=== PATIENT | male | born 1965 | race Caucasian/White ===

== ENCOUNTER 2016-09-25 12:43 | Inpatient (IN) | payer OTHER ==
[~2016-09-25] VITALS: Ht 177.8 cm; Wt 80.5 kg
[~2016-09-25 12:43] MED LIST: LACTATED RINGER'S 1000 ML INJ 1,000 ML IV ONE; NEOSTIGMINE 3 MG/3 ML SYR IV ONE; ONDANSETRON HCL 4 MG/2 ML VIAL IV PUSH ONE; PHENYLEPH/NS 1000 MCG/10 ML SYR IV ONE; PROPOFOL 200 MG/20 ML AMP IV ONE
[2016-09-25 13:09] VITALS: BP 98/58; PULSE 96; RESP 16; TEMP 97.8; O2SAT 97
[2016-09-25 13:11] VITALS: BP 82/50
[2016-09-25 13:25] VITALS: BP 97/55; PULSE 87; RESP 18; O2SAT 100
[2016-09-25] MEDS ORDERED: PIPERACIL-TAZO 4.5 GM PREMIX 100 ML IV STA (13:37)
[2016-09-25] MEDS ORDERED: SODIUM CHLOR 0.9% 1000 ML INJ 400 ML IV ONE (13:37)
[2016-09-25] MEDS ORDERED: VANCOMYCIN INJ 1,000 MG in SODIUM CHLOR 0.9% 250 ML INJ 250 ML IV STA (13:37)
[2016-09-25] MEDS ORDERED: SODIUM CHLOR 0.9% 1000 ML INJ 1,000 ML IV ONE ×2 (13:37)
[2016-09-25] MEDS ORDERED: metroNIDAZOLE 500 MG INJ 100 ML IV STA (13:39)
[2016-09-25] MEDS ORDERED: AZTREONAM INJ 2,000 MG in SODIUM CHLORIDE 0.9% INJ 100 ML IV STA (13:39)
[2016-09-25 14:13] LABS: AUTOMATED NEUTROPHIL # 18.4 TH/MM3 (1.8-7.7); BASOPHIL % 0.2 % (0.0-2.0); EOSINOPHIL % 0.1 % (0.0-4.0); HEMATOCRIT 28.9 % (39.0-51.0); LYMPH % 10.5 % (9.0-44.0); LYMPHOCYTE # 2.4 TH/MM3 (1.0-4.8); MEAN CELL VOLUME 82.2 FL (80.0-100.0); MEAN CORPUSCULAR HEMOGLOBIN 26.8 PG (27.0-34.0); MEAN CORPUSCULAR HGB CONC 32.6 % (32.0-36.0); MONO % 9.6 % (0.0-8.0); NEUT % 79.6 % (16.0-70.0); PLATELET COUNT 308 TH/MM3 (150-450); RED BLOOD COUNT 3.51 MIL/MM3 (4.50-5.90); WHITE BLOOD COUNT 23.1 TH/MM3 (4.0-11.0)
--- NOTE | 2016-09-25 14:14 | PD.VS.CON ---
History of Present Illness Chief Complaint: R foot infection Consult Requested by: Dr. Wright History of Present Illness 51yo male w/ no known medical problems who has a R foot wound that he notes started a week ago. He has drainage and now chills. He has a L AKA that was done in March for what he notes is a brown recluse spider bite. Past/Family/Social History Past Medical History unknown. "Borderline diabetes" Past Surgical History L AKA in March Social History lives with in [place] Home Medications No Active Prescriptions or Reported Meds Coded Allergies: Penicillin (Verified Allergy, Unknown, 09/25/16) Review of Systems Respiratory: DENIES: Sputum production, Shortness of breath Cardiovascular: COMPLAINS OF: Lower Extremity Edema, DENIES: Palpitations, Orthopnea, Claudication Physical Exam Vitals/I&O Date Time Temp Pulse Resp B/P Pulse Ox O2 Delivery O2 Flow Rate FiO2 09/25/16 13:25 87 18 97/55 100 Room Air 09/25/16 13:23 87 16 99 Room Air 09/25/16 13:11 82/50 09/25/16 13:09 97.8 96 16 98/58 97 Neuro: alert, oriented, appropriately nervous HEENT: NC/AT anicteric sclera Neck: no JVD Heart: tachycardic, no M Lungs: clear B Abdomen: NT Vascular: no palpable pedal pulses Extremities: L AKA R foot with forefoot erythema and draining purulence. + odor. pending Assessment and Plan Plan R Foot infection with sepsis - hypotensive but alert. Responding to IVF. 1. Emergent R ankle disarticulation. I spoke with the patient about this and he seems to understand the troubles of bilateral amputation 2. Admit to MICU broad non-PCN antibiotics CV risk factor modification: ASA, statin, and when bp tolerates it, beta tank Check Hgb A1c Rajesh Rowley MD FACS [employer] missile system crewmember [facility] - Heart and Vascular Surgery at [facility] [phone] Rajesh Rowley MD Sep 25, 2016 14:14
[2016-09-25 14:17] LABS: HEMO FLAGS AUTO DIFF
--- NOTE | 2016-09-25 14:21 | RADRPT ---
EXAM DATE/TIME: 09/25/2016 13:52 [facility] COMPARISON: No previous studies available for comparison. INDICATIONS : Right foot pain after jamming toes two weeks ago. MEDICAL HISTORY : Diabetes mellitus type II. SURGICAL HISTORY : None. ENCOUNTER: Initial ACUITY: 2 weeks PAIN SCORE: 10/10 LOCATION: Right 1st and 2nd digit. FINDINGS: AP, lateral and oblique views of the right foot were obtained and demonstrate diffuse osteopenia and normal alignment. There is mild deformity of the third proximal phalanx with apparent callus formatio n. There is soft tissue swelling and areas of gas noted in the soft tissues along the first through f ourth phalanges and proximal metatarsals. Vascular calcifications are present. There are mild degener ative changes and osteopenia. CONCLUSION: 1. Possible healing fracture of the third proximal phalanx. 2. Soft tissue swelling and multiple gas bubbles in the soft tissues which could indicate infection. No definite destructive changes identified. Harsh Aguirre MD on September 25, 2016 at 14:16 Board Certified Radiologist. This report was verified electronically.
[2016-09-25] MEDS ORDERED: fentaNYL CITRATE 250 MCG/5 ML AMP ONE ×2 (14:22→14:43)
[2016-09-25 14:31] LABS: BICARBONATE 23.1 MEQ/L (21.0-32.0); POTASSIUM 4.1 MEQ/L (3.5-5.1)
[2016-09-25] MEDS ORDERED: BUPIVACAINE/EPINEPHRINE 0.5% 50 ML VIAL ONE (14:35)
[2016-09-25] MEDS ORDERED: LIDOCAINE HCL 1% 50 ML VIAL ONE (14:36)
[2016-09-25] MEDS ORDERED: THROMBIN (TOPICAL) 5,000 UNIT VIAL ONE (14:36)
[2016-09-25] MEDS ORDERED: GELFOAM SIZE 100 ONE (14:36)
[2016-09-25] MEDS ORDERED: HEPARIN SODIUM - SQ 10,000 UNITS/ML VIAL ONE (14:38)
--- NOTE | 2016-09-25 14:45 | PD ---
HPI Chief Complaint: Syncope/Near-Syncope Time Seen by Provider: 13:22 Travel History International Travel<30 days: No Contact w/Intl Traveler<30days: No Traveled to known affect area: No History of Present Illness HPI Patient is a 51-year-old male who presents the emergency department with right foot infection and hypotension. Patient is a poor historian. States that he has "borderline diabetes" and a history of a left AKA in March 2016. Over the last week he has had necrosis with blackened toes in the right foot, malodorous foot with discharge. He denies any fevers but has had some chills. Notes he is lightheaded and presyncopal upon standing. He denies any associated pain. Patient is unable to tell me why he had his left AKA. [facility] Past Medical History Diabetes: Yes Patient Takes Glucophage: No Past Surgical History Other Surgery: Yes (left AKA) Social History Alcohol Use: Yes Tobacco Use: No Substance Use: No Allergies-Medications (Allergen,Severity, Reaction): Coded Allergies: Penicillin (Verified Allergy, Unknown, 09/25/16) Reported Meds & Prescriptions Reported Meds & Active Scripts Active No Active Prescriptions or Reported Medications Review of Systems ROS Limitations: Clinical Condition, Poor Historian Physical Exam Exam Limitations: Clinical Condition, Poor Historian Narrative GENERAL: Adult male appearing older than stated age, ill-appearing SKIN: Focused skin assessment warm/dry. HEAD: Normocephalic. EYES: No scleral icterus. No injection or drainage. ENT: Mucous membranes dry NECK: Supple CARDIOVASCULAR: Regular rate and rhythm. No murmur appreciated. RESPIRATORY: No accessory muscle use. Clear to auscultation. Breath sounds equal bilaterally. GASTROINTESTINAL: Abdomen soft, non-tender, nondistended. MUSCULOSKELETAL: Left AKA. Right lower extremity with evidence of gangrene the first through third toes are necrotic, with malodorous discharge. There is erythema that extends to the mid foot. Distal pulses are dopplerable but not palpable. NEUROLOGICAL: Awake and alert. Normal speech. PSYCHIATRIC: insight and judgment poor Data Data Last Documented VS Vital Signs Date Time Temp Pulse Resp B/P Pulse Ox O2 Delivery O2 Flow Rate FiO2 09/25/16 13:25 87 18 97/55 100 Room Air 09/25/16 13:09 97.8 Orders Electrocardiogram (09/25/16 13:37) Complete Blood Count With Diff (4/24/17 13:37) Lactic Acid Sepsis Protocol (09/25/16 13:37) Urinalysis - C+S If Indicated (09/25/16 13:37) Blood Culture (09/25/16 13:37) Chest, Single Ap (09/25/16 13:37) Blood Glucose (09/25/16 13:37) Ecg Monitoring (09/25/16 13:37) Iv Access Insert/Monitor (09/25/16 13:37) Oximetry (09/25/16 13:37) Oxygen Administration (09/25/16 13:37) Vancomycin Inj (Vancomycin Inj) (09/25/16 13:37) Piperacil-Tazo 4.5 Gm Premix (Zosyn 4.5 (09/25/16 13:37) Sodium Chlor 0.9% 1000 Ml Inj (Ns 1000 M (09/25/16 13:37) Sodium Chlor 0.9% 1000 Ml Inj (Ns 1000 M (09/25/16 13:37) Sodium Chlor 0.9% 1000 Ml Inj (Ns 1000 M (09/25/16 13:37) Basic Metabolic Panel (Bmp) (09/25/16 13:37) Foot, Complete ([id number]) (09/25/16 ) Aztreonam Inj (Azactam Inj) (09/25/16 13:39) Metronidazole 500 Mg Inj (Flagyl 500 Mg (09/25/16 13:39) Consult Vascular Surgery (09/25/16 ) Fentanyl Inj (Fentanyl Inj) (09/25/16 14:22) (Hub Use Only)Inp Phy Cons/Ref (09/25/16 ) Bupivacaine-Epineph 0.5% Inj (Sensorcain (09/25/16 14:35) Thrombin Top Soln (Thrombin Top Soln) (09/25/16 14:36) Gelfoam 100 Top (Gelfoam 100 Top) (09/25/16 14:36) Lidocaine 1% Inj (50 Ml) (Xylocaine 1% I (09/25/16 14:36) Heparin Inj (Heparin Inj) (09/25/16 14:38) Labs Laboratory Tests Test 09/25/16 13:40 White Blood Count 23.1 TH/MM3 Red Blood Count 3.51 MIL/MM3 Hemoglobin 9.4 GM/DL Hematocrit 28.9 % Mean Corpuscular Volume 82.2 FL Mean Corpuscular Hemoglobin 26.8 PG Mean Corpuscular Hemoglobin 32.6 % Concent Red Cell Distribution Width 14.0 % Platelet Count 308 TH/MM3 Mean Platelet Volume 7.9 FL Neutrophils (%) (Auto) 79.6 % Lymphocytes (%) (Auto) 10.5 % Monocytes (%) (Auto) 9.6 % Eosinophils (%) (Auto) 0.1 % Basophils (%) (Auto) 0.2 % Neutrophils # (Auto) 18.4 TH/MM3 Lymphocytes # (Auto) 2.4 TH/MM3 Monocytes # (Auto) 2.2 TH/MM3 Eosinophils # (Auto) 0.0 TH/MM3 Basophils # (Auto) 0.0 TH/MM3 CBC Comment AUTO DIFF Sodium Level 121 MEQ/L Potassium Level 4.1 MEQ/L Chloride Level 86 MEQ/L Carbon Dioxide Level 23.1 MEQ/L Anion Gap 12 MEQ/L Blood Urea Nitrogen 11 MG/DL Creatinine 1.15 MG/DL Estimat Glomerular Filtration 67 ML/MIN Rate Random Glucose 143 MG/DL Lactic Acid Level 2.9 mmol/L Calcium Level 8.9 MG/DL MDM Medical Decision Making Medical Screen Exam Complete: Yes Emergency Medical Condition: Yes Medical Record Reviewed: Yes Differential Diagnosis 51-year-old male with history of diabetes and left AKA here with wound and a foot infection to the right limb and hypotension. On exam patient has clear evidence of gangrene with hypotension concerning for significant dehydration, sepsis, bacteremia. There is no overt evidence of necrotizing fasciitis on exam. Narrative Course Patient placed on monitor, IV established and blood obtained. Patient given 30 mg/kg normal saline bolus in color with vancomycin, Azactam, Flagyl for history of penicillin allergy Wound culture sent. X-ray of the right foot was obtained showing subcutaneous emphysema concerning for infection. No bony distractive lesions. Chest x-ray unremarkable. Given patient's hypotension, clear for infection concern for bacteremia and need source control. Vascular surgery was consulted and Dr. Rowley responded to the emergency department quite rapidly. Agrees with the aforementioned antibiotics, fluids, and stat OR for at least partial amputation of the right lower extremity. CBC, BMP, lactate, urinalysis , blood cultures were obtained and notable for WBC 23.1, sodium 121, lactate 2.9. Urine samples, EKG remains pending at the time this dictation. Patient expedited to OR for emergent amputation. Critical Care Narrative Aggregate critical care time was 50 minutes. Time to perform other separately billable procedures was not included in the critical care time. My time did not include minutes spent treating any other patients simultaneously or on activities that did not directly contribute to the patient's treatment. The services I provided to this patient were to treat and/or prevent clinically significant deterioration that could result in: Sepsis, cardiopulmonary decompensation, , disability, loss of limb I provided critical care services requiring my management, as noted below: Chart data review, documentation time, medication orders and management, vital sign assessments/reviewing monitor data, ordering and reviewing lab tests, ordering and interpreting/reviewing x-rays and diagnostic studies, care of the patient and discussion of the patient with the admitting physicians. Sepsis Criteria Severe Sepsis (+one): Lactate >2 Diagnosis Primary Impression: Septic shock Additional Impressions: Gangrene Diabetes Hypotension Qualified Code: I95.9 - Hypotension, unspecified hypotension type Admitting Information Admitting Physician Requests: Admit Scripts No Active Prescriptions or Reported Meds Connie Wright MD Sep 25, 2016 14:45
[2016-09-25 14:48] LABS: SCAN/DIFF AUTO DIFF CONFIRMED
[2016-09-25] MEDS ORDERED: MIDAZOLAM HCL 2 MG/2 ML VIAL ONE (15:01)
[2016-09-25] MEDS ORDERED: FAMOTIDINE 20 MG/2 ML VIAL ONE (15:01)
--- NOTE | 2016-09-25 15:01 | RADRPT ---
EXAM DATE/TIME: 09/25/2016 13:49 [facility] COMPARISON: No previous studies available for comparison. INDICATIONS : Fever. MEDICAL HISTORY : Diabetes mellitus type II. SURGICAL HISTORY : None. ENCOUNTER: Initial ACUITY: 3 days PAIN SCORE: 0/10 LOCATION: Bilateral chest FINDINGS: A single view of the chest demonstrates the lungs to be symmetrically aerated without evidence of mas s, infiltrate or effusion. The cardiomediastinal contours are unremarkable. Osseous structures are intact with some degenerative spurring of the dorsal spine. CONCLUSION: No acute cardiopulmonary process. Lungs are clear. Chencho Mckeon MD on September 25, 2016 at 14:59 Board Certified Radiologist. This report was verified electronically.
[2016-09-25] MEDS: SODIUM CHLOR 0.9% 1000 ML INJ 1,000 ML IV SCH (15:51)
--- NOTE | 2016-09-25 15:51 | HHI.PR ---
cc: Connie Wright MD Immediate Post Op Note Procedure Date: Sep 25, 2016 Pre Op Diagnosis: septic R foot Post Op Diagnosis: septic R foot Surgeon: Rajesh Rowley Benefits Consulting Analyst(s): none Procedure: R ankle disarticulation Findings: purulence up to proximal foot, none along tendon sheaths in calf tissue viable Complications: none apparent Specimen(s) removed: 1. R foot 2. Purulence from R foot for culture Estimated blood loss: 20 mL Anesthesia: General Drains: None Fluids: 400 IVF Patient to: PACU Patient Condition: Fair Date/Time of Procedure: SEE SURGICAL CARE RECORD Rajesh Rowley MD Sep 25, 2016 15:51
[2016-09-25] MEDS ORDERED: DO NOT ADM ANY ANTICOAGULANT DRUGS PRN (15:55)
[2016-09-25] MEDS ORDERED: GLUCAGON 1 MG/ML VIAL OTHER PRN ×2 (16:00→19:45)
[2016-09-25] MEDS ORDERED: DEXTROSE 50% IN WATER 50 ML VIAL(D50) IV PUSH PRN ×2 (16:00→19:45)
[2016-09-25 16:04] LABS: LACTIC ACID GHOST NOT REPORTABLE
[2016-09-25] MEDS ORDERED: *morphine SULFATE 8 MG/ML PERIprocedure ONLY ONE ×2 (16:23→19:10)
[2016-09-25] MEDS ORDERED: *LABETALOL HCL 100 MG/20 ML VIAL PERIprocedural Use ONLY ONE (18:49)
--- NOTE | 2016-09-25 19:04 | PD.CONS ---
[facility] Service Critical Care Medicine Consult Requested By Dr. Rowley Reason for Consult critical care management due to severe sepsis/ R ankle disarticulation Primary Care Physician History of Present Illness 51-year-old male with past medical history of "borderline diabetes", obesity, alcohol abuse, remote tobacco abuse who presented to [facility] emergency department on 09/25/16 with severe sepsis and right foot gangrene. He has undergone right ankle disarticulation by Dr. Rowley. Critical care medicine is consulted to assist with management postoperatively. Anesthesia records reviewed. Routine airway. He received 600 crystalloid, estimated blood loss 20 mL, urine output was 150. He tells me that he had "stubbed his toe" about 2 weeks ago and it would not heal and started draining. He was hypotensive in the ED with BP 82/50 MAP 60; lactic acid 2.9. Responded to 3 L NS bolus. Currently normotensive and appears well perfused. He states he had AKA in March [address] Kyle Edge in [place] due to a "brown recluse spider bite". States he drinks 10-12 beers per day, but states last drink was 6 days ago. Review of Systems ROS thirst Past Family Social History Allergies: Coded Allergies: Penicillin (Verified Allergy, Unknown, 09/25/16) Past Medical History Borderline diabetes Obesity Tobacco abuse Alcohol abuse Penicillin allergy (hives and respiratory difficulty) Past Surgical History Left AKA March 2016, [facility] (Dr. Kyle Edge) Reported Medications No home medications Active Ordered Medications Current Medications Medications (Trade) Dose Ordered Sig/Kaushal Route Start Time Stop Time Status Last Admin (NS 1000 ml Inj) 1,000 ml @ 83 mls/hr Q12H3M IV 09/25/16 15:51 09/25/16 15:51 (Aspirin) 325 mg DAILY PO 09/26/16 09:00 (Protonix) 40 mg DAILY PO 09/26/16 09:00 (Lopressor) 12.5 mg BID PO 09/25/16 21:00 (Lipitor) 40 mg HS PO 09/25/16 21:00 (Roxicodone) 5 mg Q4H PRN PO 09/25/16 19:00 (Dilaudid) 2 mg Q4H PRN PO 09/25/16 19:00 (Colace) 100 mg BID PO 09/25/16 21:00 Enoxaparin Sodium 30 mg 30 mg Q24H SQ 09/26/16 15:00 Vancomycin HCl 1200 mg/Sodium Chloride 262 ml @ 250 mls/hr Q12H IV 09/26/16 14:00 10/09/16 13:59 Ciprofloxacin/ Dextrose 200 ml @ 200 mls/hr Q12H IV 09/25/16 20:00 10/09/16 19:59 (Flagyl 500 Mg Inj) 100 ml @ 100 mls/hr Q8H IV 09/25/16 23:00 10/09/16 22:59 (D50w (Vial) Inj) 25 ml UNSCH PRN IV PUSH 09/25/16 16:00 (Glucagon Inj) 1 mg UNSCH PRN OTHER 09/25/16 16:00 Family History Father had diabetes He states his mother "from complications of smoking" Social History He states he smoked 2 packs of cigarettes per day for 10 years. Quit 16 years ago Drinks 10-12 beers per day. States his last drink was 6 days ago. Denies use of illicit drugs Is . He states his is on dialysis He moved here from [place], [place]. 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 his [place] license after his AKA in March 2016 Physical Exam Vital Signs Vital Signs Date Time Temp Pulse Resp B/P Pulse Ox O2 Delivery O2 Flow Rate FiO2 09/25/16 18:00 80 14 147/87 92 Room Air 09/25/16 17:45 80 14 125/85 98 Room Air 09/25/16 17:30 80 14 147/85 92 Room Air 09/25/16 17:15 80 14 119/78 97 Room Air 09/25/16 17:00 79 14 147/81 97 Room Air 09/25/16 16:45 81 14 128/79 98 Room Air 09/25/16 16:30 87 14 121/75 90 Room Air 09/25/16 16:15 85 14 130/77 94 Room Air 09/25/16 16:00 88 14 134/75 94 Room Air 09/25/16 15:53 99.5 89 22 149/86 Nasal Cannula 2 09/25/16 13:25 87 18 97/55 100 Room Air 09/25/16 13:23 87 16 99 Room Air 09/25/16 13:11 82/50 09/25/16 13:09 97.8 96 16 98/58 97 Physical Exam Temp 99.5 pulse 93 sinus rhythm blood pressure 165/88 with mean arterial pressure 117 sats 98% on room air Drips: 0.9 NaCl at 83 mL per hour GENERAL: Well-nourished, well-developed patient who is sitting up in PACU bed, alert and conversant. SKIN: Warm and dry, well perfused. HEAD: Atraumatic. Normocephalic. EYES: Pupils equal and round, 4 mm and reactive bilaterally.. No scleral icterus. No injection or drainage. ENT: No nasal bleeding or discharge. Mucous membranes pink and moist. NECK: Trachea midline. Jugular veins are flat. CARDIOVASCULAR: Regular rate and rhythm, sinus rhythm on monitor.. No murmurs rubs or gallops. RESPIRATORY: No accessory muscle use. Clear to auscultation. Breath sounds equal bilaterally. On room air. GASTROINTESTINAL: Abdomen soft, non-tender, nondistended. Bowel sounds present.. MUSCULOSKELETAL: Left upper extremity status post AKA with incision healed. No edema. Right lower extremity status post right ankle disarticulation; has Victoriano wrap overlying the ankle. Palpable popliteal pulses. Normal cap refill and palpable radial pulses bilaterally. NEUROLOGICAL: Awake and alert. No obvious cranial nerve deficits. Motor grossly within normal limits. Normal speech. Oriented 4. Laboratory Laboratory Tests Test 09/25/16 13:40 White Blood Count 23.1 Red Blood Count 3.51 Hemoglobin 9.4 Hematocrit 28.9 Mean Corpuscular Volume 82.2 Mean Corpuscular Hemoglobin 26.8 Mean Corpuscular Hemoglobin 32.6 Concent Red Cell Distribution Width 14.0 Platelet Count 308 Mean Platelet Volume 7.9 Neutrophils (%) (Auto) 79.6 Lymphocytes (%) (Auto) 10.5 Monocytes (%) (Auto) 9.6 Eosinophils (%) (Auto) 0.1 Basophils (%) (Auto) 0.2 Neutrophils # (Auto) 18.4 Lymphocytes # (Auto) 2.4 Monocytes # (Auto) 2.2 Eosinophils # (Auto) 0.0 Basophils # (Auto) 0.0 CBC Comment AUTO DIFF Differential Comment AUTO DIFF CONFIRMED Sodium Level 121 Potassium Level 4.1 Chloride Level 86 Carbon Dioxide Level 23.1 Anion Gap 12 Blood Urea Nitrogen 11 Creatinine 1.15 Estimat Glomerular Filtration 67 Rate Random Glucose 143 Lactic Acid Level 2.9 Calcium Level 8.9 Date/Time Procedure Status Source Growth 09/25/16 15:29 Gram Stain Received Tissue Foot Pending 09/25/16 15:29 Wound Culture Received Tissue Foot Pending 09/25/16 15:29 Fungal Smear Received Wound Foot Pending 09/25/16 15:29 Fungal Culture Received Wound Foot Pending 09/25/16 15:29 Acid Fast Stain Received Tissue Foot Pending 09/25/16 15:29 Mycobacterial Culture Received Tissue Foot Pending 09/25/16 13:45 Aerobic Blood Culture Received Blood Peripheral Pending 09/25/16 13:45 Anaerobic Blood Culture Received Blood Peripheral Pending Result Diagram: 09/25/16 1340 09/25/16 1340 Septic Shock Reassessment Heart: Regular rate and rhythm Lungs: Clear Skin: Warm Peripheral Pulses: Bounding Right Radial Bounding Left Radial Bounding Right Popliteal Capillary Refill: <2 seconds Assessment and Plan Assessment and Plan NEURO: Postoperative pain Alcohol abuse Oxycodone as needed for pain. Dilaudid as needed for breakthrough pain Thiamine, multivitamin, folic acid supplementation. Monitor for signs and symptoms of alcohol withdrawal. RESP: Remote history of tobacco abuse On room air. Incentive spirometry every hour awake. CV: Hypertension Peripheral vascular disease h/o of L AKA 03/2016 Metoprolol 12.5 mill grams by mouth twice a day Check baseline lipids and baseline lfts. Lipitor 40 mill grams by mouth daily. Aspirin 325 mill grams by mouth daily Baseline EKG reviewed by me, normal sinus rhythm rate 99 with normal intervals. GI: Obesity Heart healthy diet Colace 100 mg by mouth twice a day for bowel regimen. FEN/RENAL: Hyponatremia, suspect chronic secondary to alcohol abuse Check cortisol, TSH, urine osm, serum osm, urine sodium. Received 3 L NS bolus in ED, 600 crystalloid in OR. Currently has thirst and taking po. MIVF 0.9 NaCl @ 84 ml/hr, increase 125 /hr overnight Monitor intake and output. Monitor electrolytes. Replace electrolytes as indicated per ICU electrolyte replacement protocol. Avoid nephrotoxins. ID: Leukocytosis Severe sepsis Lactic acidemia Right foot gangrene s/p R ankle disarticulation 09/25/16 (Dr. Rowley) Penicillin allergy, (respiratory difficulty and hives) Flagyl 500 mg IV every 8 hours Cipro 400 mg IV every 12 hours Vancomycin 1200 mg IV every 12 hours. Pharmacy consult for dosing Follow-up blood and wound/tissue cultures from 09/25/16.. HEME: Chronic anemia Monitor CBC check b12 and iron studies. ENDO: Acute hyperglycemia ?Prediabetes Check Hgb A1c Low-dose insulin sliding scale at bedside glucose ac/hs PROPH: Lovenox 30 mg subcutaneous every 24 hours. Protonix 40 mg po daily for stress ulcer prophylaxis. ACCESS: Peripheral IV providing adequate access at this time. Level 3 Consult Leslie Morales MD Sep 25, 2016 19:04
[2016-09-25] MEDS: CIPROFLOXACIN 400 MG PREMIX 200 ML IV SCH (20:00)
[2016-09-25] MEDS ORDERED: FAMOTIDINE 20 MG TAB PO SCH (21:00)
[2016-09-25] MEDS: INSULIN ASPART SUPPLEMENTAL SCALE SQ SCH (21:00)
[2016-09-25] MEDS: DOCUSATE SODIUM 100 MG CAP PO SCH (21:38)
[2016-09-25] MEDS: ATORVASTATIN 40 MG TAB PO SCH (21:38)
[2016-09-25] MEDS: METOPROLOL TARTRATE 25 MG TAB PO SCH (21:39)
[2016-09-25] MEDS: FOLIC ACID 1 MG TAB PO SCH (21:42)
[2016-09-25] MEDS: THIAMINE HCL 100 MG TAB PO SCH (21:42)
[2016-09-25] MEDS: MULTIVITAMIN TAB PO SCH (21:42)
[2016-09-25] MEDS: metroNIDAZOLE 500 MG INJ 100 ML IV SCH (21:44)
[2016-09-25 22:27] VITALS: BP_SYST 131; BP_SYST 99; BP_DIAS 55; BP_DIAS 73; PULSE 84; PULSE 88; RESP 18; TEMP 97.4; O2SAT 93; O2SAT 98
[2016-09-25 23:30] LABS: INTERNATIONAL NORMALIZED RATIO 1.3 RATIO; PROTHROMBIN TIME - PATIENT 14.7 SEC (9.8-11.6)
[2016-09-25 23:36] LABS: ANION GAP 10 MEQ/L (5-15); AST (GOT) 24 U/L (15-37); BICARBONATE 22.4 MEQ/L (21.0-32.0); BLOOD UREA NITROGEN 7 MG/DL (7-18); CHLORIDE 95 MEQ/L (98-107); GLOMERULAR FILTRATION RATE 111 ML/MIN (>89); MAGNESIUM 1.4 MG/DL (1.5-2.5); POTASSIUM 3.4 MEQ/L (3.5-5.1); SODIUM (NA) 127 MEQ/L (136-145)
[2016-09-25 23:56] LABS: CORTISOL 12.1 MCG/DL
[2016-09-26] VITALS (8 sets, daily range): BP systolic 109–187; BP diastolic 62–104; PULSE 68–100; RESP 17–18; TEMP 96–98.3; O2SAT 97–100
[2016-09-26 00:05] LABS: ALKALINE PHOSPHATASE 79 U/L (45-117); ALT (GPT) 40 U/L (12-78); CALCIUM-PROTEIN CORRECTED 7.7 MG/DL (8.5-10.1); HDL CHOLESTEROL 19.3 MG/DL (40.0-60.0); INDIRECT BILIRUBIN 0.2 MG/DL (0.0-0.8); LDL CHOLESTEROL 37 MG/DL (0-99); TOTAL BILIRUBIN ADULT 0.3 MG/DL (0.2-1.0); TRANSFERRIN IRON PROFILE 110 MG/DL (200-360)
[2016-09-26] MEDS: VANCOMYCIN INJ 1,200 MG in SODIUM CHLOR 0.9% 250 ML INJ 250 ML IV SCH ×2 (02:33→15:19)
[2016-09-26] MEDS: HYDROmorphone HCL 2 MG TAB PO PRN (02:34)
[2016-09-26] MEDS: SODIUM CHLOR 0.9% 1000 ML INJ 1,000 ML IV SCH ×3 (02:35→18:30)
[2016-09-26 05:22] LABS: HEMATOCRIT 23.8 % (39.0-51.0); MEAN CELL VOLUME 82.4 FL (80.0-100.0); MEAN CORPUSCULAR HEMOGLOBIN 28.8 PG (27.0-34.0); PLATELET COUNT 222 TH/MM3 (150-450); RED BLOOD COUNT 2.89 MIL/MM3 (4.50-5.90); RED CELL DISTRIBUTION WIDTH 14.1 % (11.6-17.2); REVIEW FLAG FINAL; WHITE BLOOD COUNT 9.4 TH/MM3 (4.0-11.0)
[2016-09-26 05:34] LABS: BICARBONATE 23.2 MEQ/L (21.0-32.0); POTASSIUM 3.4 MEQ/L (3.5-5.1)
[2016-09-26 05:48] LABS: CALCIUM-PROTEIN CORRECTED 7.6 MG/DL (8.5-10.1)
[2016-09-26] MEDS: metroNIDAZOLE 500 MG INJ 100 ML IV SCH ×3 (06:08→23:00)
[2016-09-26] MEDS: INSULIN ASPART SUPPLEMENTAL SCALE SQ SCH ×4 (06:30→21:00)
[2016-09-26] MEDS: CIPROFLOXACIN 400 MG PREMIX 200 ML IV SCH ×2 (08:45→20:00)
[2016-09-26] MEDS: ASPIRIN 325 MG TAB PO SCH (08:46)
[2016-09-26] MEDS: DOCUSATE SODIUM 100 MG CAP PO SCH ×2 (08:46→20:29)
[2016-09-26] MEDS: FOLIC ACID 1 MG TAB PO SCH (08:47)
[2016-09-26] MEDS: THIAMINE HCL 100 MG TAB PO SCH (08:47)
[2016-09-26] MEDS: METOPROLOL TARTRATE 25 MG TAB PO SCH ×2 (08:47→20:29)
[2016-09-26] MEDS: MULTIVITAMIN TAB PO SCH (08:47)
[2016-09-26] MEDS: PANTOPRAZOLE SOD 40 MG DELAYED RELEASE TAB PO SCH (08:48)
--- NOTE | 2016-09-26 09:00 | EKG ---
Date Performed: 09/25/2016 Time Performed: 15:02:35 PTAGE: 51 years EKG: Sinus rhythm NORMAL ECG NO PREVIOUS TRACING DOCTOR: Pernell Dow Interpretating Date/Time 09/26/2016 08:58:12
[2016-09-26 10:20] LABS: HEMOGLOBIN A1a 0.9 %; HEMOGLOBIN A1b 0.8 %; HEMOGLOBIN Ao 86.2 %; HEMOGLOBIN F 0.8 %; HEMOGLOBIN LA1C 1.9 %; HEMOGLOBIN P3 3.7 %
--- NOTE | 2016-09-26 10:58 | HHI.PR ---
Subjective Remarks Stated is doing well no fever or chills no chest pain or short of breath Objective Vitals Vital Signs Date Time Temp Pulse Resp B/P Pulse Ox O2 Delivery O2 Flow Rate FiO2 09/26/16 09:38 97 21 09/26/16 08:00 96.2 80 18 169/91 99 09/26/16 07:08 18 09/26/16 04:40 96.0 82 18 160/88 98 09/26/16 00:11 97.8 68 17 126/71 98 09/25/16 22:27 97.4 88 18 131/73 93 09/25/16 21:14 99.0 92 14 143/82 96 Room Air 09/25/16 21:00 92 14 143/82 96 Room Air 09/25/16 20:00 94 14 135/81 96 Room Air 09/25/16 19:00 92 14 150/85 96 Room Air 09/25/16 18:00 80 14 147/87 92 Room Air 09/25/16 17:45 80 14 125/85 98 Room Air 09/25/16 17:30 80 14 147/85 92 Room Air 09/25/16 17:15 80 14 119/78 97 Room Air 09/25/16 17:00 79 14 147/81 97 Room Air 09/25/16 16:45 81 14 128/79 98 Room Air 09/25/16 16:30 87 14 121/75 90 Room Air 09/25/16 16:15 85 14 130/77 94 Room Air 09/25/16 16:00 88 14 134/75 94 Room Air 09/25/16 15:53 99.5 89 22 149/86 Nasal Cannula 2 09/25/16 13:25 87 18 97/55 100 Room Air 09/25/16 13:23 87 16 99 Room Air 09/25/16 13:11 82/50 09/25/16 13:09 97.8 96 16 98/58 97 I/O 09/25/16 09/25/16 09/25/16 09/26/16 09/26/16 09/26/16 07:00 15:00 23:00 07:00 15:00 23:00 Intake Total 1897 ml 1218 ml Output Total 1020 ml 1000 ml Balance 877 ml 218 ml Intake Oral 360 ml 480 ml IV Total 937 ml 738 ml Other 600 ml Output Urine Total 1000 ml 1000 ml Estimated Blood Loss 20 ml Result Diagram: 09/26/1643909/26/16439 Objective Remarks GENERAL: This is a well-nourished, well-developed patient, in no apparent distress. SKIN: No rashes, warm and dry HEAD: Atraumatic. Normocephalic. EYES: Pupils equal round and reactive. Extraocular motions intact. No scleral icterus. ENT: Nose without bleeding, or drainage, Airway patent. NECK: Trachea midline. Supple CARDIOVASCULAR: Regular rate and rhythm without murmurs, gallops, or rubs. RESPIRATORY: Fair air entry bilaterally. No wheezes, rales, or rhonchi. GASTROINTESTINAL: Abdomen soft, non-tender, nondistended. Positive bowel sounds MUSCULOSKELETAL: Left AKA stump looks good, right BKA in gauze NEUROLOGICAL: Awake and alert. Moves all extremity. Normal speech.no focal neurological deficit A/P Assessment and Plan 51 years old male admitted with severe sepsis PAD and left foot gangrene status post surgical debridement -Severe sepsis with lactic acidemia and leukocytosis: Improved on iv antibiotics status post surgery, leukocytosis improved to normal level as well as lactic acid -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 for 21/09/16: Continue the antibiotic Cipro Flagyl and Vanco, continue following blood and bone/tissue culture, surgery following -PAD status post left AKA 03/2016: Continue aspirin and Lopressor -Chronic anemia : Low iron, saturation, TIBC, ferritin pending -Hyponatremia with hypomagnesemia: Monitor and replace as needed, hyponatremia mostly due to alcohol abuse -Hyperglycemia rule out new diagnosis diabetes mellitus: Accu-Chek and ISS, A1c pending, FBG 136 today -Hypertension: Resume home meds, on metoprolol -Alcohol abuse: Counseled, folic acid thiamine, Ativan as needed -Penicillin allergy -DVT prophylaxis, on Lovenox Carmen Park MD Sep 26, 2016 10:58
[2016-09-26] MEDS: MAGNESIUM SULFAT 1 GM PREMIX 100 ML x2 bags IV SCH ×2 (12:40→13:46)
--- NOTE | 2016-09-26 13:38 | PD.VS.PN ---
Subjective POD #: 1 Procedure(s): R ankle disarticulation Subjective/Hospital Course Pt sitting in bed comfortably in NAD, at the BS Pt without complaints Pain controlled Changed dressing Objective Vitals/I&O Date Time Temp Pulse Resp B/P Pulse Ox O2 Delivery O2 Flow Rate FiO2 09/26/16 12:00 96.2 80 18 187/104 100 09/26/16 11:11 18 09/26/16 09:38 97 21 09/26/16 08:00 96.2 80 18 169/91 99 09/26/16 04:40 96.0 82 18 160/88 98 09/26/16 00:11 97.8 68 17 126/71 98 09/25/16 22:27 97.4 88 18 131/73 93 09/25/16 21:14 99.0 92 14 143/82 96 Room Air 09/25/16 21:00 92 14 143/82 96 Room Air 09/25/16 20:00 94 14 135/81 96 Room Air 09/25/16 19:00 92 14 150/85 96 Room Air 09/25/16 18:00 80 14 147/87 92 Room Air 09/25/16 17:45 80 14 125/85 98 Room Air 09/25/16 17:30 80 14 147/85 92 Room Air 09/25/16 17:15 80 14 119/78 97 Room Air 09/25/16 17:00 79 14 147/81 97 Room Air 09/25/16 16:45 81 14 128/79 98 Room Air 09/25/16 16:30 87 14 121/75 90 Room Air 09/25/16 16:15 85 14 130/77 94 Room Air 09/25/16 16:00 88 14 134/75 94 Room Air 09/25/16 15:53 99.5 89 22 149/86 Nasal Cannula 2 09/25/16 13:25 87 18 97/55 100 Room Air 09/25/16 13:23 87 16 99 Room Air 09/25/16 13:11 82/50 09/25/16 13:09 97.8 96 16 98/58 97 Exam: GENERAL: A&OX3/NAD/GCS15 SKIN: Warm and dry. R ankle disarticulation site clean with minimal sanguineous drainage/ No S/R/O noted NECK: Supple/No JVD CARDIOVASCULAR: +S1,S2 with a RRR w/o M/G/R RESPIRATORY: BS equal and CTA/ No accessory muscle use. GASTROINTESTINAL: Abdomen soft, non-tender, nondistended. MUSCULOSKELETAL: No cyanosis, or edema. Laboratory Laboratory Tests Test 09/25/16 09/25/16 09/26/16 13:40 23:02 04:40 White Blood Count 23.1 9.4 Red Blood Count 3.51 2.89 Hemoglobin 9.4 8.3 Hematocrit 28.9 23.8 Mean Corpuscular Volume 82.2 82.4 Mean Corpuscular Hemoglobin 26.8 28.8 Mean Corpuscular Hemoglobin 32.6 35.0 Concent Red Cell Distribution Width 14.0 14.1 Platelet Count 308 222 Mean Platelet Volume 7.9 7.5 Neutrophils (%) (Auto) 79.6 Lymphocytes (%) (Auto) 10.5 Monocytes (%) (Auto) 9.6 Eosinophils (%) (Auto) 0.1 Basophils (%) (Auto) 0.2 Neutrophils # (Auto) 18.4 Lymphocytes # (Auto) 2.4 Monocytes # (Auto) 2.2 Eosinophils # (Auto) 0.0 Basophils # (Auto) 0.0 CBC Comment AUTO DIFF Differential Comment AUTO DIFF CONFIRMED Sodium Level 121 127 129 Potassium Level 4.1 3.4 3.4 Chloride Level 86 95 97 Carbon Dioxide Level 23.1 22.4 23.2 Anion Gap 12 10 9 Blood Urea Nitrogen 11 7 7 Creatinine 1.15 0.74 0.76 Estimat Glomerular Filtration 67 111 107 Rate Random Glucose 143 116 132 Lactic Acid Level 2.9 0.9 Calcium Level 8.9 7.3 7.3 Prothrombin Time 14.7 Prothromb Time International 1.3 Ratio Hemoglobin A1c 5.4 Serum Osmolality 255 Protein Corrected Calcium 7.7 7.6 Phosphorus Level 3.4 Magnesium Level 1.4 1.6 Iron Level 23 Total Iron Binding Capacity 154 Percent Iron Saturation 14.9 Total Bilirubin 0.3 Direct Bilirubin 0.1 Indirect Bilirubin 0.2 Aspartate Amino Transf 24 (AST/SGOT) Alanine Aminotransferase 40 (ALT/SGPT) Alkaline Phosphatase 79 Total Protein 6.4 6.6 Albumin 1.9 Triglycerides Level 84 Cholesterol Level 73 LDL Cholesterol 37 HDL Cholesterol 19.3 Cholesterol/HDL Ratio 3.78 Vitamin B12 Level 1069 Thyroid Stimulating Hormone 1.500 3rd Gen Random Cortisol 12.1 Ferritin 461 Date/Time Procedure Status Source Growth 09/25/16 15:29 Gram Stain - Final Resulted Tissue Foot 09/25/16 15:29 Wound Culture Resulted Tissue Foot Pending 09/25/16 15:29 Fungal Smear - Final Resulted Wound Foot NO FUNGAL ELEMENTS SEEN. 09/25/16 15:29 Fungal Culture Resulted Wound Foot Pending 09/25/16 15:29 Acid Fast Stain Received Tissue Foot Pending 09/25/16 15:29 Mycobacterial Culture Received Tissue Foot Pending 09/25/16 13:45 Aerobic Blood Culture - Preliminary Resulted Blood Peripheral NO GROWTH IN 1 DAY 09/25/16 13:45 Anaerobic Blood Culture - Preliminary Resulted Blood Peripheral NO GROWTH IN 1 DAY Assessment and Plan Plan S/P Emergent R ankle disarticulation Plan Continue daily dressing changes or as needed if soiled Planned R BKA later this week with Dr. Amrik DUMONT [facility] [phone] Roxanne Saldaña Sep 26, 2016 13:38
[2016-09-26] MEDS: ENOXAPARIN SODIUM 30 MG/0.3 ML SYRINGE SQ SCH (15:24)
[2016-09-26] MEDS: ATORVASTATIN 40 MG TAB PO SCH (20:29)
--- NOTE | 2016-09-26 22:40 | MP ---
cc: RAJESH ROWLEY MD DATE OF SURGERY 09/25/2016 PREOPERATIVE DIAGNOSIS Right foot sepsis. POSTOPERATIVE DIAGNOSIS Right foot sepsis. PROCEDURE Right ankle disarticulation. ATTENDING SURGEON Rajesh Rowley MD ANESTHESIA General. INDICATION Mr. Butterfield is a 51-year-old gentleman with no medical care previously who presented to the emergency department with purulence draining from his right foot, hypotension and rigors. He clearly has right foot sepsis and after discussion with the patient, he was taken to the operating room emergently. DESCRIPTION OF THE PROCEDURE Informed consent was obtained. The patient was taken to the operating room and placed supine on the operating room table. An appropriate timeout was taken to ensure the patient's identify, the operative site and planned procedure. The administration of Flagyl and vancomycin were initiated prior to skin incision. These will be continued postoperatively for ongoing care of a polymicrobial diabetic foot injection. Everyone in the room agreed with the timeout and we proceeded. The right leg was prepped and draped. An incision was made below the medial and lateral malleoli with a 10 blade and carried down to the subcutaneous tissue with electrocautery. The joint space was entered. The dorsalis pedis artery was divided between silk ties. The foot was then amputated and passed off the table. A sample of purulence was obtained for culture. The foot was then also sent to the pathology lab. The open below the knee wound was then irrigated with copious amounts of saline and then dressed with an Adaptic, Kerlix and Victoriano bandage. The sponge and needle counts were correct at the end of the case. I was present and scrubbed and performed the entire procedure. Rajesh Rowley MD RJF/KK /4:05 PM /10:27 PM MTDDemetria
[2016-09-27] VITALS (7 sets, daily range): BP systolic 105–199; BP diastolic 60–97; PULSE 74–82; RESP 17–20; TEMP 96.2–97.2; O2SAT 97–100
[2016-09-27] MEDS: SODIUM CHLOR 0.9% 1000 ML INJ 1,000 ML IV SCH ×4 (01:06→23:07)
[2016-09-27] MEDS: VANCOMYCIN INJ 1,200 MG in SODIUM CHLOR 0.9% 250 ML INJ 250 ML IV SCH ×2 (02:00→15:08)
[2016-09-27 05:37] LABS: AUTOMATED NEUTROPHIL # 5.3 TH/MM3 (1.8-7.7); BASOPHIL % 0.5 % (0.0-2.0); EOSINOPHIL # 0.1 TH/MM3 (0-0.4); EOSINOPHIL % 1.3 % (0.0-4.0); HEMATOCRIT 22.7 % (39.0-51.0); HEMO FLAGS DIFF FINAL; LYMPH % 23.7 % (9.0-44.0); LYMPHOCYTE # 1.9 TH/MM3 (1.0-4.8); MEAN CELL VOLUME 83.2 FL (80.0-100.0); MEAN CORPUSCULAR HEMOGLOBIN 28.1 PG (27.0-34.0); MEAN CORPUSCULAR HGB CONC 33.8 % (32.0-36.0); MONO % 8.9 % (0.0-8.0); NEUT % 65.6 % (16.0-70.0); PLATELET COUNT 224 TH/MM3 (150-450); RED BLOOD COUNT 2.73 MIL/MM3 (4.50-5.90); WHITE BLOOD COUNT 8.1 TH/MM3 (4.0-11.0)
[2016-09-27 05:43] LABS: BICARBONATE 24.7 MEQ/L (21.0-32.0); POTASSIUM 3.6 MEQ/L (3.5-5.1)
[2016-09-27 06:26] LABS: CALCIUM-PROTEIN CORRECTED 7.9 MG/DL (8.5-10.1)
[2016-09-27] MEDS: metroNIDAZOLE 500 MG INJ 100 ML IV SCH ×3 (06:50→23:07)
[2016-09-27] MEDS: INSULIN ASPART SUPPLEMENTAL SCALE SQ SCH ×4 (07:00→20:39)
[2016-09-27] MEDS: HYDROmorphone HCL 2 MG TAB PO PRN ×4 (07:33→20:29)
[2016-09-27] MEDS: METOPROLOL TARTRATE 25 MG TAB PO SCH ×2 (07:33→20:28)
[2016-09-27] MEDS: ASPIRIN 325 MG TAB PO SCH (07:33)
[2016-09-27] MEDS: PANTOPRAZOLE SOD 40 MG DELAYED RELEASE TAB PO SCH (07:33)
[2016-09-27] MEDS: DOCUSATE SODIUM 100 MG CAP PO SCH ×2 (07:33→20:28)
[2016-09-27] MEDS: MULTIVITAMIN TAB PO SCH (07:33)
[2016-09-27] MEDS: FOLIC ACID 1 MG TAB PO SCH (07:34)
[2016-09-27] MEDS: CIPROFLOXACIN 400 MG PREMIX 200 ML IV SCH ×2 (07:34→20:30)
[2016-09-27] MEDS: THIAMINE HCL 100 MG TAB PO SCH (09:00)
[2016-09-27] MEDS: amLODIPine BESYLATE 5 MG TAB PO SCH (09:35)
--- NOTE | 2016-09-27 10:49 | HHI.PR ---
Subjective Remarks Blood pressure is not well controlled today we added Vasotec and Norvasc Resting in bed comfortably, denied headache or lightheaded or chest pain or short of breath Pain in the right lower extremity surgical site is tolerable Objective Vitals Vital Signs Date Time Temp Pulse Resp B/P Pulse Ox O2 Delivery O2 Flow Rate FiO2 09/27/16 10:11 139/79 09/27/16 08:33 18 09/27/16 08:00 97.2 79 18 199/97 99 09/26/16 23:49 98.3 100 18 168/89 97 09/26/16 19:54 96.7 75 18 165/87 97 09/26/16 19:31 18 09/26/16 16:00 96.7 71 17 109/62 100 09/26/16 12:00 96.2 80 18 187/104 100 I/O 09/26/16 09/26/16 09/26/16 09/27/16 09/27/16 09/27/16 07:00 15:00 23:00 07:00 15:00 23:00 Intake Total 1218 ml 1548 ml 360 ml 1475 ml Output Total 1000 ml 900 ml 800 ml 1000 ml Balance 218 ml 648 ml -440 ml 475 ml Intake Oral 480 ml 720 ml 360 ml 480 ml IV Total 738 ml 828 ml 995 ml Output Urine Total 1000 ml 900 ml 800 ml 1000 ml # Bowel Movements 0 Result Diagram: 09/27/16 0455 09/27/16 0455 Objective Remarks GENERAL: This is a well-nourished, well-developed patient, in no apparent distress. SKIN: No rashes, warm and dry HEAD: Atraumatic. Normocephalic. EYES: Pupils equal round and reactive. Extraocular motions intact. No scleral icterus. ENT: Nose without bleeding, or drainage, Airway patent. NECK: Trachea midline. Supple CARDIOVASCULAR: Regular rate and rhythm without murmurs, gallops, or rubs. RESPIRATORY: Fair air entry bilaterally. No wheezes, rales, or rhonchi. GASTROINTESTINAL: Abdomen soft, non-tender, nondistended. Positive bowel sounds MUSCULOSKELETAL: Left AKA stump looks good, right BKA in gauze NEUROLOGICAL: Awake and alert. Moves all extremity. Normal speech.no focal neurological deficit A/P Assessment and Plan 51 years old male admitted with severe sepsis PAD and left foot gangrene status post surgical debridement -Severe sepsis with lactic acidemia and leukocytosis: Improved on iv antibiotics status post surgery, leukocytosis improved to normal level as well as lactic acid -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 for 21/09/16: Continue the antibiotic Cipro Flagyl and Vanco, continue following blood and bone/tissue culture, surgery following -PAD status post left AKA 03/2016: Continue aspirin and Lopressor -Chronic anemia : Low iron, saturation, TIBC, ferritin is high for 59 most likely chronic disease -Hyponatremia with hypomagnesemia: Monitor and replace as needed, hyponatremia mostly due to alcohol abuse -Hyperglycemia mostly prediabetic : Accu-Chek and ISS, A1c 5.4, FBG 136 - 122 -Hypertension: Resume home meds, on metoprolol, add Vasotec as needed, Norvasc 5 mg daily -Alcohol abuse: Counseled, folic acid thiamine, Ativan as needed -Penicillin allergy -DVT prophylaxis, on Lovenox Carmen Park MD Sep 27, 2016 10:49
--- NOTE | 2016-09-27 11:57 | PD.VS.PN ---
Subjective POD #: 2 Procedure(s): R ankle disarticulation Subjective/Hospital Course Pt sitting in bed comfortably in NAD, at the BS doing well dressing changes going well Objective Vitals/I&O Date Time Temp Pulse Resp B/P Pulse Ox O2 Delivery O2 Flow Rate FiO2 09/27/16 10:11 139/79 09/27/16 08:33 18 09/27/16 08:00 97.2 79 18 199/97 99 09/26/16 23:49 98.3 100 18 168/89 97 09/26/16 19:54 96.7 75 18 165/87 97 09/26/16 19:31 18 09/26/16 16:00 96.7 71 17 109/62 100 09/26/16 12:00 96.2 80 18 187/104 100 09/27/16 09/27/16 09/27/16 07:00 15:00 23:00 Intake Total 1475 ml Output Total 1000 ml Balance 475 ml Exam: calf warm - dressing to be taken down tonight with staff development coordinator rn Laboratory Laboratory Tests Test 09/27/16 04:55 White Blood Count 8.1 Red Blood Count 2.73 Hemoglobin 7.7 Hematocrit 22.7 Mean Corpuscular Volume 83.2 Mean Corpuscular Hemoglobin 28.1 Mean Corpuscular Hemoglobin 33.8 Concent Red Cell Distribution Width 14.0 Platelet Count 224 Mean Platelet Volume 7.4 Neutrophils (%) (Auto) 65.6 Lymphocytes (%) (Auto) 23.7 Monocytes (%) (Auto) 8.9 Eosinophils (%) (Auto) 1.3 Basophils (%) (Auto) 0.5 Neutrophils # (Auto) 5.3 Lymphocytes # (Auto) 1.9 Monocytes # (Auto) 0.7 Eosinophils # (Auto) 0.1 Basophils # (Auto) 0.0 CBC Comment DIFF FINAL Differential Comment Sodium Level 131 Potassium Level 3.6 Chloride Level 100 Carbon Dioxide Level 24.7 Anion Gap 6 Blood Urea Nitrogen 3 Creatinine 0.58 Estimat Glomerular Filtration 147 Rate Random Glucose 122 Calcium Level 7.4 Protein Corrected Calcium 7.9 Total Protein 6.1 Vancomycin Level Trough 24.0 Date/Time Procedure Status Source Growth 09/25/16 15:29 Gram Stain - Final Resulted Tissue Foot 09/25/16 15:29 Wound Culture - Preliminary Resulted Proteus Vulgaris Staphylococcus Aureus 09/25/16 15:29 Fungal Smear - Final Resulted Wound Foot NO FUNGAL ELEMENTS SEEN. 09/25/16 15:29 Fungal Culture Resulted Wound Foot Pending 09/25/16 15:29 Acid Fast Stain - Final Resulted Tissue Foot NO ACID FAST BACILLI SEEN 09/25/16 15:29 Mycobacterial Culture Resulted Tissue Foot Pending 09/25/16 13:45 Aerobic Blood Culture - Preliminary Resulted Blood Peripheral NO GROWTH IN 2 DAYS 09/25/16 13:45 Anaerobic Blood Culture - Preliminary Resulted Blood Peripheral NO GROWTH IN 2 DAYS Assessment and Plan Plan S/P Emergent R ankle disarticulation will plan for BKA later this week given that WBC normalized, no fevers. Would treat with antibiotics x 2 weeks after open BKA (end 10/13) - proteus and s. aureus per cultures Prosthetics consult Rajesh Rowley MD Sep 27, 2016 11:57
[2016-09-27] MEDS: ENOXAPARIN SODIUM 30 MG/0.3 ML SYRINGE SQ SCH (15:08)
[2016-09-27] MEDS: ATORVASTATIN 40 MG TAB PO SCH (20:28)
[2016-09-27] MEDS: ENALAPRILAT 1.25 MG/ML VIAL IV PUSH PRN (23:11)
[2016-09-28] VITALS (8 sets, daily range): BP systolic 116–198; BP diastolic 70–101; PULSE 69–85; RESP 17–20; TEMP 96.4–98; O2SAT 96–100
[2016-09-28] MEDS: VANCOMYCIN INJ 1,200 MG in SODIUM CHLOR 0.9% 250 ML INJ 250 ML IV SCH ×2 (01:59→13:41)
[2016-09-28] MEDS: HYDROmorphone HCL 2 MG TAB PO PRN ×2 (02:03→20:37)
[2016-09-28] MEDS ORDERED: LORazepam 2 MG/ML VIAL IV PUSH ONE (05:00)
[2016-09-28] MEDS: metroNIDAZOLE 500 MG INJ 100 ML IV SCH ×3 (05:07→23:29)
[2016-09-28] MEDS: INSULIN ASPART SUPPLEMENTAL SCALE SQ SCH ×4 (05:07→20:40)
[2016-09-28] MEDS: THIAMINE HCL 100 MG TAB PO SCH (07:47)
[2016-09-28] MEDS: DOCUSATE SODIUM 100 MG CAP PO SCH ×2 (07:48→20:37)
[2016-09-28] MEDS: MULTIVITAMIN TAB PO SCH (07:48)
[2016-09-28] MEDS: METOPROLOL TARTRATE 25 MG TAB PO SCH ×2 (07:48→20:36)
[2016-09-28] MEDS: FOLIC ACID 1 MG TAB PO SCH (07:48)
[2016-09-28] MEDS: amLODIPine BESYLATE 5 MG TAB PO SCH (07:48)
[2016-09-28] MEDS: PANTOPRAZOLE SOD 40 MG DELAYED RELEASE TAB PO SCH (07:48)
[2016-09-28] MEDS: ASPIRIN 325 MG TAB PO SCH (07:48)
[2016-09-28] MEDS: CIPROFLOXACIN 400 MG PREMIX 200 ML IV SCH ×2 (07:48→20:36)
--- NOTE | 2016-09-28 12:09 | PD.VS.PN ---
Subjective POD #: 3 Procedure(s): R ankle disarticulation Subjective/Hospital Course Pt resting in bed without complaints Reported he feels great and is eating well Objective Vitals/I&O Date Time Temp Pulse Resp B/P Pulse Ox O2 Delivery O2 Flow Rate FiO2 09/28/16 09:00 120/72 09/28/16 08:00 96.4 79 18 188/100 99 09/28/16 05:50 163/86 09/28/16 04:00 98.0 77 20 182/84 98 09/28/16 00:00 97.5 75 20 198/101 99 09/27/16 20:00 96.9 82 20 184/87 100 09/27/16 17:52 97 21 09/27/16 16:39 18 09/27/16 16:00 96.2 81 17 105/60 97 09/28/16 09/28/16 09/28/16 07:00 15:00 23:00 Intake Total 1525 ml Output Total 1550 ml Balance -25 ml Exam: GENERAL: A&OX3, NAD, pleasant 51/M SKIN: Warm and dry. R LE ankle amputation with minimal sanguineous drainage. NO R/D/S/O noted. Pt denies pain NECK: No JVD CARDIOVASCULAR: RRR, +s1,S2 w/o M/G/R RESPIRATORY: BS CTA Bilat GASTROINTESTINAL: Abdomen soft, non-tender, nondistended. MUSCULOSKELETAL: No cyanosis, or edema. Laboratory Date/Time Procedure Status Source Growth 09/25/16 15:29 Gram Stain - Final Complete Tissue Foot 09/25/16 15:29 Wound Culture - Final Complete Proteus Vulgaris Staphylococcus Aureus 09/25/16 15:29 Fungal Smear - Final Resulted Wound Foot NO FUNGAL ELEMENTS SEEN. 09/25/16 15:29 Fungal Culture Resulted Wound Foot Pending 09/25/16 15:29 Acid Fast Stain - Final Resulted Tissue Foot NO ACID FAST BACILLI SEEN 09/25/16 15:29 Mycobacterial Culture Resulted Tissue Foot Pending 09/25/16 13:45 Aerobic Blood Culture - Preliminary Resulted Blood Peripheral NO GROWTH IN 3 DAYS 09/25/16 13:45 Anaerobic Blood Culture - Preliminary Resulted Blood Peripheral NO GROWTH IN 3 DAYS Assessment and Plan Plan S/P Emergent R ankle disarticulation R BKA scheduled with Dr. Rowley on Sunday10/02/16 Continue to treat with antibiotics x 2 weeks after open BKA (end 10/13) - proteus and s. aureus per cultures Prosthetics consulted/ Prosthetic counselling done on 09/27/[address] [facility] [phone] Roxanne Saldaña Sep 28, 2016 12:09
[2016-09-28] MEDS: ENOXAPARIN SODIUM 30 MG/0.3 ML SYRINGE SQ SCH (13:41)
--- NOTE | 2016-09-28 15:33 | HHI.PR ---
Subjective Remarks Patient stable no acute issue afebrile Plan for right BKA on Sunday per vascular surgery Objective Vitals Vital Signs Date Time Temp Pulse Resp B/P Pulse Ox O2 Delivery O2 Flow Rate FiO2 09/28/16 12:00 96.7 74 17 116/71 99 09/28/16 09:00 120/72 09/28/16 08:00 96.4 79 18 188/100 99 09/28/16 05:50 163/86 09/28/16 04:00 98.0 77 20 182/84 98 09/28/16 00:00 97.5 75 20 198/101 99 09/27/16 20:00 96.9 82 20 184/87 100 09/27/16 17:52 97 21 09/27/16 16:39 18 09/27/16 16:00 96.2 81 17 105/60 97 I/O 09/27/16 09/27/16 09/27/16 09/28/16 09/28/16 09/28/16 07:00 15:00 23:00 07:00 15:00 23:00 Intake Total 1475 ml 2300 ml 1246 ml 1525 ml 820 ml Output Total 1000 ml 600 ml 700 ml 1550 ml 1300 ml Balance 475 ml 1700 ml 546 ml -25 ml -480 ml Intake Oral 480 ml 1320 ml 480 ml 480 ml 720 ml IV Total 995 ml 980 ml 766 ml 1045 ml 100 ml Output Urine Total 1000 ml 600 ml 700 ml 1550 ml 1300 ml # Bowel Movements 0 0 0 0 Result Diagram: 09/27/16 0455 09/27/16 045 Objective Remarks GENERAL: This is a well-nourished, well-developed patient, in no apparent distress. SKIN: No rashes, warm and dry HEAD: Atraumatic. Normocephalic. EYES: Pupils equal round and reactive. Extraocular motions intact. No scleral icterus. ENT: Nose without bleeding, or drainage, Airway patent. NECK: Trachea midline. Supple CARDIOVASCULAR: Regular rate and rhythm without murmurs, gallops, or rubs. RESPIRATORY: Fair air entry bilaterally. No wheezes, rales, or rhonchi. GASTROINTESTINAL: Abdomen soft, non-tender, nondistended. Positive bowel sounds MUSCULOSKELETAL: Left AKA stump looks good, right BKA in gauze NEUROLOGICAL: Awake and alert. Moves all extremity. Normal speech.no focal neurological deficit A/P Assessment and Plan 51 years old male admitted with severe sepsis PAD and left foot gangrene status post surgical debridement -Severe sepsis with lactic acidemia and leukocytosis: Improved on iv antibiotics status post surgery, leukocytosis improved to normal level as well as lactic acid -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 for 21/09/16: Continue the antibiotic Cipro Flagyl and Vanco, continue following blood and bone/tissue culture, surgery following plan for right AKA on Sunday -PAD status post left AKA 03/2016: Continue aspirin and Lopressor -Chronic anemia : Low iron, saturation, TIBC, ferritin is high for 59 most likely chronic disease -Hyponatremia with hypomagnesemia: Monitor and replace as needed, hyponatremia mostly due to alcohol abuse -Hyperglycemia mostly prediabetic : Accu-Chek and ISS, A1c 5.4, FBG 136 - 122- 139>> to fasting blood glucose of 126 diabetes mellitus per definition -Hypertension: Resume home meds, on metoprolol, add Vasotec as needed, Norvasc 5 mg daily -Alcohol abuse: Counseled, folic acid thiamine, Ativan as needed -Penicillin allergy -DVT prophylaxis, on Lovenox Carmen Park MD Sep 28, 2016 15:33
[2016-09-28] MEDS: ATORVASTATIN 40 MG TAB PO SCH (20:36)
[2016-09-29] VITALS: BP 176/86; PULSE 82; RESP 18; TEMP 97.2; O2SAT 99
[2016-09-29] MEDS: HYDROmorphone HCL 2 MG TAB PO PRN ×2 (01:40→05:58)
[2016-09-29] MEDS: VANCOMYCIN INJ 1,200 MG in SODIUM CHLOR 0.9% 250 ML INJ 250 ML IV SCH ×2 (01:40→16:25)
[2016-09-29] MEDS: ENALAPRILAT 1.25 MG/ML VIAL IV PUSH PRN ×2 (02:43→22:13)
[2016-09-29] MEDS: INSULIN ASPART SUPPLEMENTAL SCALE SQ SCH ×4 (05:57→20:45)
[2016-09-29] MEDS: metroNIDAZOLE 500 MG INJ 100 ML IV SCH ×3 (06:37→22:13)
[2016-09-29] MEDS: DOCUSATE SODIUM 100 MG CAP PO SCH ×2 (07:52→20:30)
[2016-09-29] MEDS: MULTIVITAMIN TAB PO SCH (07:53)
[2016-09-29] MEDS: ASPIRIN 325 MG TAB PO SCH (07:53)
[2016-09-29] MEDS: amLODIPine BESYLATE 5 MG TAB PO SCH (07:53)
[2016-09-29] MEDS: PANTOPRAZOLE SOD 40 MG DELAYED RELEASE TAB PO SCH (07:53)
[2016-09-29] MEDS: THIAMINE HCL 100 MG TAB PO SCH (07:53)
[2016-09-29] MEDS: FOLIC ACID 1 MG TAB PO SCH (07:53)
[2016-09-29] MEDS: METOPROLOL TARTRATE 25 MG TAB PO SCH ×2 (07:54→20:31)
[2016-09-29] MEDS: CIPROFLOXACIN 400 MG PREMIX 200 ML IV SCH ×2 (07:55→20:45)
[2016-09-29 08:00] VITALS: BP_SYST 194; BP_SYST 201; BP_DIAS 96; BP_DIAS 99; PULSE 81; RESP 16; TEMP 97.9; O2SAT 99
--- NOTE | 2016-09-29 09:28 | HHI.PR ---
Subjective Remarks Patient is not happy because the nurse didn't let his who is another patient on the same floor came to his room to wish him happy anniversary Otherwise he is afebrile no acute complain, is going for AKA on Sunday Objective Vitals Vital Signs Date Time Temp Pulse Resp B/P Pulse Ox O2 Delivery O2 Flow Rate FiO2 09/29/16 08:00 97.9 81 16 201/99 99 194/96 09/29/16 00:00 97.2 82 18 176/86 99 09/28/16 18:10 97.4 85 18 184/91 99 09/28/16 16:00 97.4 84 17 118/70 100 09/28/16 12:00 96.7 74 17 116/71 99 I/O 09/28/16 09/28/16 09/28/16 09/29/16 09/29/16 09/29/16 07:00 15:00 23:00 07:00 15:00 23:00 Intake Total 1525 ml 820 ml 480 ml Output Total 1550 ml 1300 ml 600 ml Balance -25 ml -480 ml -120 ml Intake Oral 480 ml 720 ml 280 ml IV Total 1045 ml 100 ml 200 ml Output Urine Total 1550 ml 1300 ml 600 ml # Bowel Movements 0 0 1 Result Diagram: 09/27/16 0455 09/27/16 0455 Objective Remarks GENERAL: This is a well-nourished, well-developed patient, in no apparent distress. SKIN: No rashes, warm and dry HEAD: Atraumatic. Normocephalic. EYES: Pupils equal round and reactive. Extraocular motions intact. No scleral icterus. ENT: Nose without bleeding, or drainage, Airway patent. NECK: Trachea midline. Supple CARDIOVASCULAR: Regular rate and rhythm without murmurs, gallops, or rubs. RESPIRATORY: Fair air entry bilaterally. No wheezes, rales, or rhonchi. GASTROINTESTINAL: Abdomen soft, non-tender, nondistended. Positive bowel sounds MUSCULOSKELETAL: Left AKA stump looks good, right BKA in gauze NEUROLOGICAL: Awake and alert. Moves all extremity. Normal speech.no focal neurological deficit A/P Assessment and Plan 09/29: Continue current care, plan for AKA on Sunday, blood pressure still not controlled to 20 will increase Lopressor and add clonidine as needed 51 years old male admitted with severe sepsis PAD and left foot gangrene status post surgical debridement -Severe sepsis with lactic acidemia and leukocytosis: Improved on iv antibiotics status post surgery, leukocytosis improved to normal level as well as lactic acid -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 for 21/09/16: Continue the antibiotic Cipro Flagyl and Vanco, continue following blood and bone/tissue culture, surgery following plan for right AKA on Sunday -PAD status post left AKA 03/2016: Continue aspirin and Lopressor -Chronic anemia : Low iron, saturation, TIBC, ferritin is high for 59 most likely chronic disease -Hyponatremia with hypomagnesemia: Monitor and replace as needed, hyponatremia mostly due to alcohol abuse -Hyperglycemia mostly prediabetic : Accu-Chek and ISS, A1c 5.4, FBG 136 - 122- 139>> to fasting blood glucose of 126 diabetes mellitus per definition -Hypertension: Resume home meds, on metoprolol, add Vasotec as needed, Norvasc 10 mg mg daily -Alcohol abuse: Counseled, folic acid thiamine, Ativan as needed -Penicillin allergy -DVT prophylaxis, on Lovenox Carmen Park MD Sep 29, 2016 09:28
[2016-09-29 16:00] VITALS: BP 192/89; PULSE 85; RESP 16; TEMP 95.5; O2SAT 100
[2016-09-29] MEDS: ENOXAPARIN SODIUM 30 MG/0.3 ML SYRINGE SQ SCH (16:26)
[2016-09-29 20:00] VITALS: BP 190/95; PULSE 80; RESP 20; TEMP 96.8; O2SAT 97
[2016-09-29] MEDS: ATORVASTATIN 40 MG TAB PO SCH (20:31)
[2016-09-29 22:30] VITALS: BP 190/94
[2016-09-30] VITALS (8 sets, daily range): BP systolic 156–195; BP diastolic 80–105; PULSE 78–83; RESP 20; TEMP 96.2–98.7; O2SAT 97–100
[2016-09-30] MEDS: cloNIDine HCL 0.1 MG TAB PO PRN ×2 (00:14→10:51)
[2016-09-30] MEDS: VANCOMYCIN INJ 1,200 MG in SODIUM CHLOR 0.9% 250 ML INJ 250 ML IV SCH ×2 (01:39→13:46)
[2016-09-30] MEDS: HYDROmorphone HCL 2 MG TAB PO PRN (03:18)
[2016-09-30] MEDS: LORazepam 2 MG/ML VIAL IV PUSH PRN (03:18)
[2016-09-30] MEDS: ENALAPRILAT 1.25 MG/ML VIAL IV PUSH PRN (04:44)
[2016-09-30] MEDS: metroNIDAZOLE 500 MG INJ 100 ML IV SCH ×3 (04:47→22:17)
[2016-09-30] MEDS ORDERED: hydrALAZINE HCL 10 MG TAB PO ONE (06:15)
[2016-09-30] MEDS: INSULIN ASPART SUPPLEMENTAL SCALE SQ SCH ×4 (06:48→22:52)
[2016-09-30] MEDS: MULTIVITAMIN TAB PO SCH (08:06)
[2016-09-30] MEDS: DOCUSATE SODIUM 100 MG CAP PO SCH ×2 (08:06→21:00)
[2016-09-30] MEDS: METOPROLOL TARTRATE 25 MG TAB PO SCH ×2 (08:07→22:17)
[2016-09-30] MEDS: FOLIC ACID 1 MG TAB PO SCH (08:07)
[2016-09-30] MEDS: CIPROFLOXACIN 400 MG PREMIX 200 ML IV SCH ×2 (08:07→20:33)
[2016-09-30] MEDS: ASPIRIN 325 MG TAB PO SCH (08:07)
[2016-09-30] MEDS: PANTOPRAZOLE SOD 40 MG DELAYED RELEASE TAB PO SCH (08:07)
[2016-09-30] MEDS: THIAMINE HCL 100 MG TAB PO SCH (08:07)
--- NOTE | 2016-09-30 12:00 | PD.VS.PN ---
Subjective Subjective/Hospital Course Pt resting in bed without complaints some questions about the status of his dog (social director)? Objective Vitals/I&O Date Time Temp Pulse Resp B/P Pulse Ox O2 Delivery O2 Flow Rate FiO2 09/30/16 08:00 97.7 82 20 183/99 100 09/30/16 05:45 194/102 09/30/16 04:35 195/105 09/30/16 04:15 195/105 09/30/16 00:56 98.6 80 20 188/93 97 09/29/16 22:30 190/94 09/29/16 20:00 96.8 80 20 190/95 97 09/29/16 16:00 95.5 85 16 192/89 100 09/30/16 09/30/16 09/30/16 07:00 15:00 23:00 Intake Total 1164 ml Output Total 1200 ml Balance -36 ml Physical Exam Right Ankle disarticulation site without erythema and clean. Laboratory Date/Time Procedure Status Source Growth 09/25/16 15:29 Gram Stain - Final Complete Tissue Foot 09/25/16 15:29 Wound Culture - Final Complete Proteus Vulgaris Staphylococcus Aureus 09/25/16 15:29 Fungal Smear - Final Resulted Wound Foot NO FUNGAL ELEMENTS SEEN. 09/25/16 15:29 Fungal Culture Resulted Wound Foot Pending 09/25/16 15:29 Acid Fast Stain - Final Resulted Tissue Foot NO ACID FAST BACILLI SEEN 09/25/16 15:29 Mycobacterial Culture Resulted Tissue Foot Pending 09/25/16 13:45 Aerobic Blood Culture - Final Complete Blood Peripheral NO GROWTH IN 5 DAYS 09/25/16 13:45 Anaerobic Blood Culture - Final Complete Blood Peripheral NO GROWTH IN 5 DAYS Assessment and Plan Plan S/P Emergent R ankle disarticulation No new complaints. R BKA scheduled with Dr. Rowley on Sunday10/02/16 Continue to treat with antibiotics x 2 weeks after open BKA (end 10/13) - proteus and s. aureus per cultures Shad Cerda DO, Shad Duncan DO Sep 30, 2016 12:00
[2016-09-30] MEDS: LISINOPRIL 10 MG TAB PO SCH ×2 (12:11→22:17)
--- NOTE | 2016-09-30 15:32 | HHI.PR ---
Subjective Remarks No acute issue no chest pain fever or chills plan for AKA on Sunday Objective Vitals Vital Signs Date Time Temp Pulse Resp B/P Pulse Ox O2 Delivery O2 Flow Rate FiO2 09/30/16 12:00 96.2 78 20 161/89 100 09/30/16 08:00 97.7 82 20 183/99 100 09/30/16 05:45 194/102 09/30/16 04:35 195/105 09/30/16 04:15 195/105 09/30/16 00:56 98.6 80 20 188/93 97 09/29/16 22:30 190/94 09/29/16 20:00 96.8 80 20 190/95 97 09/29/16 16:00 95.5 85 16 192/89 100 I/O 09/29/16 09/29/16 09/29/16 09/30/16 09/30/16 09/30/16 07:00 15:00 23:00 07:00 15:00 23:00 Intake Total 720 ml 1384 ml 1164 ml Output Total 1000 ml 1200 ml 1 ml Balance 720 ml 384 ml -36 ml -1 ml Intake Oral 720 ml 560 ml 580 ml IV Total 824 ml 584 ml Output Urine Total 1000 ml 1200 ml 1 ml # Voids 5 # Bowel Movements 0 1 Result Diagram: 09/27/16 0455 09/27/16 0455 Objective Remarks GENERAL: This is a well-nourished, well-developed patient, in no apparent distress. SKIN: No rashes, warm and dry HEAD: Atraumatic. Normocephalic. EYES: Pupils equal round and reactive. Extraocular motions intact. No scleral icterus. ENT: Nose without bleeding, or drainage, Airway patent. NECK: Trachea midline. Supple CARDIOVASCULAR: Regular rate and rhythm without murmurs, gallops, or rubs. RESPIRATORY: Fair air entry bilaterally. No wheezes, rales, or rhonchi. GASTROINTESTINAL: Abdomen soft, non-tender, nondistended. Positive bowel sounds MUSCULOSKELETAL: Left AKA stump looks good, right BKA in gauze NEUROLOGICAL: Awake and alert. Moves all extremity. Normal speech.no focal neurological deficit A/P Assessment and Plan 09/29: Continue current care, plan for AKA on Sunday, blood pressure still not controlled to 20 will increase Lopressor and add clonidine as needed 09/30: Plan for AK and Sunday continue current care, blood pressure still not controlled will increase lisinopril and Lopressor. 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 for 21/09/16: Continue the antibiotic Cipro Flagyl and Vanco, continue following blood and bone/tissue culture, surgery following plan for right AKA on Sunday -PAD status post left AKA 03/2016: Continue aspirin and Lopressor -Chronic anemia : Low iron, saturation, TIBC, ferritin is high for 61 most likely chronic disease -Hyponatremia with hypomagnesemia: Monitor and replace as needed, hyponatremia mostly due to alcohol abuse -Hyperglycemia mostly prediabetic : Accu-Chek and ISS, A1c 5.4, FBG 136 - 122- 139>> to fasting blood glucose of 126 diabetes mellitus per definition -Hypertension: Resume home meds, on metoprolol, add Vasotec as needed, Norvasc -Alcohol abuse: Counseled, folic acid thiamine, Ativan as needed -Penicillin allergy -DVT prophylaxis, on Lovenox Carmen Park MD Sep 30, 2016 15:32
[2016-09-30] MEDS: ENOXAPARIN SODIUM 30 MG/0.3 ML SYRINGE SQ SCH (15:59)
[2016-09-30] MEDS: ATORVASTATIN 40 MG TAB PO SCH (22:16)
[2016-10-01] VITALS: BP 109/65; PULSE 85; RESP 18; TEMP 97.1; O2SAT 98
[2016-10-01] MEDS: VANCOMYCIN INJ 1,200 MG in SODIUM CHLOR 0.9% 250 ML INJ 250 ML IV SCH ×2 (02:26→14:10)
[2016-10-01] MEDS: metroNIDAZOLE 500 MG INJ 100 ML IV SCH ×3 (06:04→23:11)
[2016-10-01] MEDS: INSULIN ASPART SUPPLEMENTAL SCALE SQ SCH ×4 (06:24→20:35)
[2016-10-01] MEDS: CIPROFLOXACIN 400 MG PREMIX 200 ML IV SCH ×2 (07:48→20:36)
[2016-10-01] MEDS: THIAMINE HCL 100 MG TAB PO SCH (07:50)
[2016-10-01] MEDS: FOLIC ACID 1 MG TAB PO SCH (07:51)
[2016-10-01] MEDS: DOCUSATE SODIUM 100 MG CAP PO SCH ×2 (07:51→20:35)
[2016-10-01] MEDS: ASPIRIN 325 MG TAB PO SCH (07:51)
[2016-10-01] MEDS: METOPROLOL TARTRATE 25 MG TAB PO SCH ×2 (07:51→20:34)
[2016-10-01] MEDS: LISINOPRIL 10 MG TAB PO SCH ×2 (07:51→20:34)
[2016-10-01] MEDS: PANTOPRAZOLE SOD 40 MG DELAYED RELEASE TAB PO SCH (07:51)
[2016-10-01] MEDS: MULTIVITAMIN TAB PO SCH (07:52)
[2016-10-01 08:00] VITALS: BP 174/90; PULSE 83; RESP 20; TEMP 97.9; O2SAT 98
--- NOTE | 2016-10-01 08:08 | PD.VS.PN ---
Subjective Subjective/Hospital Course Pt resting in bed without complaints Understands risks and benefits of right completion below knee amputation. Signed consent for procedure. Objective Vitals/I&O Date Time Temp Pulse Resp B/P Pulse Ox O2 Delivery O2 Flow Rate FiO2 10/01/16 00:00 97.1 85 18 109/65 98 09/30/16 22:17 18 09/30/16 20:00 98.7 80 20 156/80 97 09/30/16 16:00 98.4 83 20 168/95 97 09/30/16 12:00 96.2 78 20 161/89 100 10/01/16 10/01/16 10/01/16 07:00 15:00 23:00 Intake Total 998 ml Output Total 1000 ml Balance -2 ml Physical Exam Right ankle disarticulation site clean and intact. Assessment and Plan Plan S/P Emergent R ankle disarticulation No new complaints. Consent signed and made NPO after midnight. R BKA scheduled with Dr. Rowley on Sunday10/02/16 Continue to treat with antibiotics x 2 weeks after open BKA (end 10/13) - proteus and s. aureus per cultures Shad Cerda DO, Shad Duncan DO Oct 01, 2016 08:08
[2016-10-01] MEDS ORDERED: DEXT 5%-NACL 0.9% 1000 ML INJ 1,000 ML IV SCH (10:00)
[2016-10-01 12:00] VITALS: BP 147/81; PULSE 79; RESP 20; TEMP 97.8; O2SAT 100
[2016-10-01 16:00] VITALS: BP 136/76; PULSE 84; RESP 20; TEMP 96.8; O2SAT 100
--- NOTE | 2016-10-01 16:39 | HHI.PR ---
Subjective Remarks Afebrile resting in bed no acute issue he is eating his lunch We'll check EMB CBC INR in a.m., going for AKA Objective Vitals Vital Signs Date Time Temp Pulse Resp B/P Pulse Ox O2 Delivery O2 Flow Rate FiO2 10/01/16 12:00 97.8 79 20 147/81 100 10/01/16 08:00 97.9 83 20 174/90 98 10/01/16 00:00 97.1 85 18 109/65 98 09/30/16 22:17 18 09/30/16 20:00 98.7 80 20 156/80 97 I/O 09/30/16 09/30/16 09/30/16 10/01/16 10/01/16 10/01/16 07:00 15:00 23:00 07:00 15:00 23:00 Intake Total 1164 ml 904 ml 998 ml Output Total 1200 ml 1 ml 1475 ml 1000 ml Balance -36 ml -1 ml -571 ml -2 ml Intake Oral 580 ml 480 ml 480 ml IV Total 584 ml 424 ml 518 ml Output Urine Total 1200 ml 1 ml 1475 ml 1000 ml # Bowel Movements 1 1 1 Result Diagram: 09/27/16 0455 09/27/16 0455 Objective Remarks GENERAL: This is a well-nourished, well-developed patient, in no apparent distress. SKIN: No rashes, warm and dry HEAD: Atraumatic. Normocephalic. EYES: Pupils equal round and reactive. Extraocular motions intact. No scleral icterus. ENT: Nose without bleeding, or drainage, Airway patent. NECK: Trachea midline. Supple CARDIOVASCULAR: Regular rate and rhythm without murmurs, gallops, or rubs. RESPIRATORY: Fair air entry bilaterally. No wheezes, rales, or rhonchi. GASTROINTESTINAL: Abdomen soft, non-tender, nondistended. Positive bowel sounds MUSCULOSKELETAL: Left AKA stump looks good, right BKA in gauze NEUROLOGICAL: Awake and alert. Moves all extremity. Normal speech.no focal neurological deficit A/P Assessment and Plan 09/29: Continue current care, plan for AKA on Sunday, blood pressure still not controlled to 20 1/ will increase Lopressor and add clonidine as needed 09/30: Plan for AK and Sunday continue current care, blood pressure still not controlled will increase lisinopril and Lopressor. Monitor 10/01: Going for AKA tomorrow, check BMP CBC INR in a.m. 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 for 21/09/16: Continue the antibiotic Cipro Flagyl and Vanco, continue following blood and bone/tissue culture, surgery following plan for right AKA on Sunday -PAD status post left AKA 03/2016: Continue aspirin and Lopressor -Chronic anemia : Low iron, saturation, TIBC, ferritin is high for 61 most likely chronic disease -Hyponatremia with hypomagnesemia: Monitor and replace as needed, hyponatremia mostly due to alcohol abuse -Hyperglycemia mostly prediabetic : Accu-Chek and ISS, A1c 5.4, FBG 136 - 122- 139>> to fasting blood glucose of 126 diabetes mellitus per definition -Hypertension: Resume home meds, on metoprolol, add Vasotec as needed, Norvasc -Alcohol abuse: Counseled, folic acid thiamine, Ativan as needed -Penicillin allergy -DVT prophylaxis, on Lovenox Carmen Park MD Oct 01, 2016 16:39
[2016-10-01] MEDS: ENOXAPARIN SODIUM 30 MG/0.3 ML SYRINGE SQ SCH (16:55)
[2016-10-01] MEDS: HYDROmorphone HCL 2 MG TAB PO PRN (20:34)
[2016-10-01] MEDS: ATORVASTATIN 40 MG TAB PO SCH (20:34)
[2016-10-01 20:43] VITALS: BP 107/66; PULSE 87; RESP 19; TEMP 96.1; O2SAT 99
[2016-10-02 00:12] VITALS: BP 143/79; PULSE 80; RESP 20; TEMP 97.7; O2SAT 98
[2016-10-02] MEDS: DEXT 5%-NACL 0.9% 1000 ML INJ 1,000 ML IV SCH ×3 (00:24→13:19)
[2016-10-02] MEDS: VANCOMYCIN INJ 1,200 MG in SODIUM CHLOR 0.9% 250 ML INJ 250 ML IV SCH ×3 (02:58→10:26)
[2016-10-02] MEDS ORDERED: POVIDONE IODINE 5% (ANTISEPSIS KIT) 4 APPLICATIONS EACH NARE PRN (03:45)
[2016-10-02] MEDS ORDERED: INSULIN HUMAN REGULAR 1,000 UNITS/10 ML VIAL SQ PRN (03:45)
[2016-10-02] MEDS ORDERED: CHLORHEXIDINE GLUCONATE 2 % 1 PACK (2 CLOTHS) TOPICAL PRN (03:45)
[2016-10-02] MEDS ORDERED: LACTATED RINGER'S 1000 ML IV PRN (03:45)
[2016-10-02] MEDS ORDERED: METOPROLOL TARTRATE 25 MG TAB PO PRN (03:45)
[2016-10-02 03:52] VITALS: BP 166/88; PULSE 79; RESP 18; TEMP 97.9; O2SAT 98
[2016-10-02] MEDS: metroNIDAZOLE 500 MG INJ 100 ML IV SCH ×3 (05:30→22:16)
[2016-10-02 05:57] LABS: AUTOMATED NEUTROPHIL # 9.4 TH/MM3 (1.8-7.7); BASOPHIL # 0.1 TH/MM3 (0-0.2); BASOPHIL % 0.6 % (0.0-2.0); EOSINOPHIL # 0.2 TH/MM3 (0-0.4); EOSINOPHIL % 1.5 % (0.0-4.0); HEMATOCRIT 23.6 % (39.0-51.0); HEMO FLAGS DIFF FINAL; LYMPH % 19.3 % (9.0-44.0); LYMPHOCYTE # 2.6 TH/MM3 (1.0-4.8); MEAN CELL VOLUME 82.6 FL (80.0-100.0); MEAN CORPUSCULAR HEMOGLOBIN 27.7 PG (27.0-34.0); MEAN CORPUSCULAR HGB CONC 33.5 % (32.0-36.0); MONO % 8.7 % (0.0-8.0); NEUT % 69.9 % (16.0-70.0); PLATELET COUNT 237 TH/MM3 (150-450); RED BLOOD COUNT 2.86 MIL/MM3 (4.50-5.90); RED CELL DISTRIBUTION WIDTH 14.5 % (11.6-17.2); WHITE BLOOD COUNT 13.5 TH/MM3 (4.0-11.0)
[2016-10-02 06:22] LABS: BICARBONATE 27.1 MEQ/L (21.0-32.0); POTASSIUM 3.1 MEQ/L (3.5-5.1)
[2016-10-02] MEDS: INSULIN ASPART SUPPLEMENTAL SCALE SQ SCH ×4 (06:30→20:16)
[2016-10-02 06:35] LABS: CALCIUM-PROTEIN CORRECTED 7.6 MG/DL (8.5-10.1)
[2016-10-02] MEDS: CIPROFLOXACIN 400 MG PREMIX 200 ML IV SCH ×2 (07:46→20:09)
[2016-10-02] MEDS: ASPIRIN 325 MG TAB PO SCH (07:47)
[2016-10-02 08:00] VITALS: BP 155/88; PULSE 84; RESP 19; TEMP 98.5; O2SAT 100
[2016-10-02] MEDS: THIAMINE HCL 100 MG TAB PO SCH (08:19)
[2016-10-02] MEDS: MULTIVITAMIN TAB PO SCH (08:19)
[2016-10-02] MEDS: PANTOPRAZOLE SOD 40 MG DELAYED RELEASE TAB PO SCH (08:19)
[2016-10-02] MEDS: METOPROLOL TARTRATE 25 MG TAB PO SCH ×2 (08:20→20:09)
[2016-10-02] MEDS: LISINOPRIL 10 MG TAB PO SCH ×2 (08:20→20:09)
[2016-10-02] MEDS: DOCUSATE SODIUM 100 MG CAP PO SCH ×2 (08:24→20:09)
[2016-10-02] MEDS ORDERED: BUPIVACAINE/EPINEPHRINE 0.5% 50 ML VIAL ONE (08:44)
[2016-10-02] MEDS ORDERED: THROMBIN (TOPICAL) 5,000 UNIT VIAL ONE (08:44)
[2016-10-02] MEDS ORDERED: GELFOAM SIZE 100 ONE (08:44)
[2016-10-02] MEDS ORDERED: LIDOCAINE HCL 1% 50 ML VIAL ONE (08:45)
[2016-10-02] MEDS ORDERED: SODIUM CHLOR 0.9% 1000 ML INJ 1,000 ML IV ONE (10:23)
[2016-10-02] MEDS ORDERED: PHENYLEPH/NS 1000 MCG/10 ML SYR IV ONE (10:23)
[2016-10-02] MEDS ORDERED: PROPOFOL 200 MG/20 ML AMP IV ONE (10:23)
[2016-10-02] MEDS ORDERED: LACTATED RINGER'S 1000 ML INJ 1,000 ML IV ONE (10:23)
[2016-10-02] MEDS ORDERED: ONDANSETRON HCL 4 MG/2 ML VIAL IV PUSH ONE (10:23)
--- NOTE | 2016-10-02 11:43 | HHI.PR ---
Immediate Post Op Note Procedure Date: October 02, 2016 Pre Op Diagnosis: open R BKA Post Op Diagnosis: open R BKA Surgeon: Rajesh Rowley [employer] Checker(s): none Procedure: R BKA Findings: well perfused tissue No infection Complications: none Specimen(s) removed: R leg Estimated blood loss: 200mL Anesthesia: General Drains: None Fluids: 900 mL IVF Patient to: PACU Patient Condition: Good Date/Time of Procedure: SEE SURGICAL CARE RECORD Rajesh Rowley MD October 02, 2016 11:43
[2016-10-02] MEDS ORDERED: ENOXAPARIN SODIUM 30 MG/0.3 ML SYRINGE SQ SCH (11:45)
[2016-10-02] MEDS ORDERED: HYDROmorphone HCL 2 MG TAB PO PRN (11:45)
[2016-10-02] MEDS ORDERED: *morphine SULFATE 8 MG/ML PERIprocedure ONLY ONE ×2 (12:06→12:14)
[2016-10-02] MEDS ORDERED: MORPHINE SULFATE 4 MG/ML INJ ONE (12:09)
[2016-10-02] MEDS ORDERED: *HYDROmorphone PF 1 MG VIAL PERIprocedural Use ONLY ONE (12:38)
[2016-10-02] MEDS: HYDROmorphone HCL 2 MG TAB PO PRN ×3 (13:13→22:15)
[2016-10-02] MEDS: ENOXAPARIN SODIUM 30 MG/0.3 ML SYRINGE SQ SCH (14:21)
[2016-10-02 15:31] VITALS: O2SAT 96
[2016-10-02] MEDS: HYDROmorphone HCL PF 1 MG/ML VIAL IV PRN ×4 (15:43→22:15)
[2016-10-02 16:00] VITALS: BP 147/80; PULSE 76; RESP 19; TEMP 96.5; O2SAT 96
--- NOTE | 2016-10-02 16:07 | HHI.PR ---
Subjective Remarks Patient seen earlier this morning Going for right AKA versus BKA Doing well afebrile no acute issue Objective Vitals Vital Signs Date Time Temp Pulse Resp B/P Pulse Ox O2 Delivery O2 Flow Rate FiO2 10/02/16 15:31 96 21 10/02/16 14:13 19 10/02/16 12:50 75 16 134/80 99 Room Air 10/02/16 12:30 75 16 130/69 99 Room Air 10/02/16 12:15 74 16 138/77 100 Room Air 10/02/16 12:00 98.5 76 16 133/71 100 Room Air 10/02/16 08:00 98.5 84 19 155/88 100 10/02/16 03:52 97.9 79 18 166/88 98 10/02/16 00:12 97.7 80 20 143/79 98 10/01/16 20:43 96.1 87 19 107/66 99 I/O 10/01/16 10/01/16 10/01/16 10/02/16 10/02/16 10/02/16 07:00 15:00 23:00 07:00 15:00 23:00 Intake Total 998 ml 820 ml 480 ml 946 ml 1850 ml Output Total 1000 ml 350 ml 1000 ml 1200 ml 200 ml Balance -2 ml 470 ml -520 ml -254 ml 1650 ml Intake Oral 480 ml 820 ml 480 ml IV Total 518 ml 0 ml 946 ml 850 ml Other 1000 ml Output Urine Total 1000 ml 350 ml 1000 ml 1200 ml Estimated Blood Loss 200 ml # Voids 1 # Bowel Movements 1 1 1 1 Result Diagram: 10/02/16 0430 10/02/16 0430 Objective Remarks GENERAL: This is a well-nourished, well-developed patient, in no apparent distress. SKIN: No rashes, warm and dry HEAD: Atraumatic. Normocephalic. EYES: Pupils equal round and reactive. Extraocular motions intact. No scleral icterus. ENT: Nose without bleeding, or drainage, Airway patent. NECK: Trachea midline. Supple CARDIOVASCULAR: Regular rate and rhythm without murmurs, gallops, or rubs. RESPIRATORY: Fair air entry bilaterally. No wheezes, rales, or rhonchi. GASTROINTESTINAL: Abdomen soft, non-tender, nondistended. Positive bowel sounds MUSCULOSKELETAL: Left AKA stump looks good, right BKA in gauze NEUROLOGICAL: Awake and alert. Moves all extremity. Normal speech.no focal neurological deficit A/P Assessment and Plan 09/29: Continue current care, plan for AKA on Sunday, blood pressure still not controlled to will increase Lopressor and add clonidine as needed 09/30: Plan for AK and Sunday continue current care, blood pressure still not controlled will increase lisinopril and Lopressor. Monitor 10/01: Going for AKA tomorrow, check BMP CBC INR in a.m. 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 for 21/09/16: Continue the antibiotic Cipro Flagyl and Vanco, continue following blood and bone/tissue culture, surgery following plan for right AKA on Sunday -PAD status post left AKA 03/2016: Continue aspirin and Lopressor -Chronic anemia : Low iron, saturation, TIBC, ferritin is high for 61 most likely chronic disease -Hyponatremia with hypomagnesemia: Monitor and replace as needed, hyponatremia mostly due to alcohol abuse -Hyperglycemia mostly prediabetic : Accu-Chek and ISS, A1c 5.4, FBG 136 - 122- 139>> to fasting blood glucose of 126 diabetes mellitus per definition -Hypertension: Resume home meds, on metoprolol, add Vasotec as needed, Norvasc -Alcohol abuse: Counseled, folic acid thiamine, Ativan as needed -Penicillin allergy -DVT prophylaxis, on Lovenox Carmen Park MD October 02, 2016 16:07
[2016-10-02 17:29] LABS: HEMATOCRIT 21.3 % (39.0-51.0); INTERNATIONAL NORMALIZED RATIO 1.1 RATIO; MEAN CORPUSCULAR HEMOGLOBIN 28.4 PG (27.0-34.0); MEAN CORPUSCULAR HGB CONC 34.6 % (32.0-36.0); PLATELET COUNT 262 TH/MM3 (150-450); PROTHROMBIN TIME - PATIENT 12.7 SEC (9.8-11.6); RED CELL DISTRIBUTION WIDTH 14.5 % (11.6-17.2); REVIEW FLAG FINAL; WHITE BLOOD COUNT 17.3 TH/MM3 (4.0-11.0)
[2016-10-02] MEDS: CALCIUM CARBONATE 500 MG CHEWABLE TAB CHEW SCH (20:09)
[2016-10-02] MEDS: ATORVASTATIN 40 MG TAB PO SCH (20:09)
[2016-10-02 20:19] VITALS: BP 144/94; PULSE 80; RESP 18; TEMP 96.9; O2SAT 97
[2016-10-03] VITALS (10 sets, daily range): BP systolic 131–163; BP diastolic 62–102; PULSE 84–90; RESP 18–19; TEMP 97.3–99.4; O2SAT 97–99
[2016-10-03] MEDS: VANCOMYCIN INJ 1,200 MG in SODIUM CHLOR 0.9% 250 ML INJ 250 ML IV SCH ×2 (01:42→14:00)
[2016-10-03] MEDS: DEXT 5%-NACL 0.9% 1000 ML INJ 1,000 ML IV SCH ×3 (01:42→16:55)
[2016-10-03] MEDS: HYDROmorphone HCL PF 1 MG/ML VIAL IV PRN ×9 (01:43→22:44)
[2016-10-03] MEDS: metroNIDAZOLE 500 MG INJ 100 ML IV SCH ×3 (04:02→20:13)
[2016-10-03] MEDS: INSULIN ASPART SUPPLEMENTAL SCALE SQ SCH ×4 (04:03→21:00)
[2016-10-03 06:05] LABS: AUTOMATED NEUTROPHIL # 12.3 TH/MM3 (1.8-7.7); BASOPHIL % 0.3 % (0.0-2.0); EOSINOPHIL # 0.1 TH/MM3 (0-0.4); EOSINOPHIL % 0.4 % (0.0-4.0); HEMATOCRIT 21.1 % (39.0-51.0); HEMO FLAGS DIFF FINAL; LYMPH % 11.8 % (9.0-44.0); LYMPHOCYTE # 1.8 TH/MM3 (1.0-4.8); MEAN CORPUSCULAR HEMOGLOBIN 28.3 PG (27.0-34.0); MEAN CORPUSCULAR HGB CONC 34.5 % (32.0-36.0); MONO % 8.2 % (0.0-8.0); NEUT % 79.3 % (16.0-70.0); PLATELET COUNT 237 TH/MM3 (150-450); RED BLOOD COUNT 2.58 MIL/MM3 (4.50-5.90); RED CELL DISTRIBUTION WIDTH 14.9 % (11.6-17.2); WHITE BLOOD COUNT 15.5 TH/MM3 (4.0-11.0)
[2016-10-03 06:29] LABS: POTASSIUM 3.2 MEQ/L (3.5-5.1)
[2016-10-03 06:54] LABS: CALCIUM-PROTEIN CORRECTED 7.7 MG/DL (8.5-10.1)
[2016-10-03] MEDS: CIPROFLOXACIN 400 MG PREMIX 200 ML IV SCH ×2 (07:18→20:12)
[2016-10-03] MEDS: HYDROmorphone HCL 2 MG TAB PO PRN ×4 (07:20→21:49)
[2016-10-03] MEDS: MULTIVITAMIN TAB PO SCH (07:21)
[2016-10-03] MEDS: PANTOPRAZOLE SOD 40 MG DELAYED RELEASE TAB PO SCH (07:21)
[2016-10-03] MEDS: ASPIRIN 325 MG TAB PO SCH (07:21)
[2016-10-03] MEDS: METOPROLOL TARTRATE 25 MG TAB PO SCH ×2 (07:21→20:12)
[2016-10-03] MEDS: LISINOPRIL 10 MG TAB PO SCH ×2 (07:21→20:12)
[2016-10-03] MEDS: CALCIUM CARBONATE 500 MG CHEWABLE TAB CHEW SCH ×3 (07:22→20:13)
[2016-10-03] MEDS: DOCUSATE SODIUM 100 MG CAP PO SCH ×2 (07:26→20:12)
--- NOTE | 2016-10-03 10:24 | MP ---
cc: RAJESH ROWLEY MD DATE OF SURGERY: 10/02/2016 PREOPERATIVE DIAGNOSIS Open right below-knee amputation. POSTOPERATIVE DIAGNOSIS Open right below-knee amputation. PROCEDURE Right below-knee amputation. ATTENDING SURGEON Rajesh Rowley RESIDENT SURGEON None. ANESTHESIA General. INDICATIONS Mr. Butterfield is a gentleman who came in through the emergency department last week with a septic right foot. He underwent an urgent ankle disarticulation. Over the intervening several days his white count has normalized, his pressures have stabilized and he has been on appropriate antibiotics. He had no streaking erythema or other clinical evidence to suggest he has an ongoing infection. He is taken to the operating room for a completion amputation. DESCRIPTION OF PROCEDURE Informed consent was obtained from the patient. He was taken to the operating room and placed supine on the operating table. An appropriate timeout was taken to ensure the patient's identity, operative site and planned procedure. The administration of a gram of vancomycin was initiated prior to skin incision and will be continued postoperatively for ongoing treatment of his infection for a total duration of two weeks after the amputation. Everyone in the room agreed with the timeout and we proceeded. His right leg was prepped and draped. An incision was made a handbreadth below the tibial tuberosity and carried down trough subcutaneous tissue with electrocautery. The muscle was divided and the tibia was transected with an oscillating saw. The posterior muscle was divided after a long posterior flap had been made with a 10 blade and the fibula was divided. The leg was passed off the table as a specimen. The fibula was then resected up to a centimeter cephalad to the tibia and the anterior portion of the tibia was beveled with an oscillating saw. The wound was then irrigated and made hemostatic with silk pop-off sutures. We then closed the wound with 2-0 Polysorb, 3-0 Polysorb and skin nadeen. The sponge and needle count was correct at the end of the case. I was present and scrubbed for the entire procedure. Rajesh Rowley MD RJF/BT /12:05 PM /10:06 AM
--- NOTE | 2016-10-03 10:58 | PD.VS.PN ---
Subjective POD #: 1 Procedure(s): R BKA Subjective/Hospital Course Pt resting in bed alert and in NAD R BKA dressing C/D/I Pt reported he was in a lot of pain last night but is comfortable this am Pain controlled Objective Vitals/I&O Date Time Temp Pulse Resp B/P Pulse Ox O2 Delivery O2 Flow Rate FiO2 10/03/16 08:20 18 10/03/16 08:00 98.1 89 18 160/85 98 10/03/16 06:28 18 10/03/16 00:10 98.9 89 18 158/84 98 10/02/16 20:19 96.9 80 18 144/94 97 10/02/16 16:00 96.5 76 19 147/80 96 10/02/16 15:31 96 21 10/02/16 12:50 75 16 134/80 99 Room Air 10/02/16 12:30 75 16 130/69 99 Room Air 10/02/16 12:15 74 16 138/77 100 Room Air 10/02/16 12:00 98.5 76 16 133/71 100 Room Air 10/03/16 10/03/16 10/03/16 07:00 15:00 23:00 Intake Total 480 ml Output Total 1200 ml Balance -720 ml Exam: GENERAL: A&OX3, NAD, GCS15, Pleasant 51/M SKIN: Warm and dry. R BKA with esdras wrap I/C/D CARDIOVASCULAR: +S1,S2 RRR w/o M/G/R RESPIRATORY: BS CTA Bilat GASTROINTESTINAL: Abd S/NT, Pt denies any N/V MUSCULOSKELETAL: L AKA Pt denies any weakness, CP or SOB Laboratory Laboratory Tests Test 10/02/16 10/03/16 10/03/16 16:41 04:52 06:43 White Blood Count 17.3 15.5 Red Blood Count 2.60 2.58 Hemoglobin 7.4 7.3 Hematocrit 21.3 21.1 Mean Corpuscular Volume 82.0 82.0 Mean Corpuscular Hemoglobin 28.4 28.3 Mean Corpuscular Hemoglobin 34.6 34.5 Concent Red Cell Distribution Width 14.5 14.9 Platelet Count 262 237 Mean Platelet Volume 7.1 7.1 Prothrombin Time 12.7 Prothromb Time International 1.1 Ratio Neutrophils (%) (Auto) 79.3 Lymphocytes (%) (Auto) 11.8 Monocytes (%) (Auto) 8.2 Eosinophils (%) (Auto) 0.4 Basophils (%) (Auto) 0.3 Neutrophils # (Auto) 12.3 Lymphocytes # (Auto) 1.8 Monocytes # (Auto) 1.3 Eosinophils # (Auto) 0.1 Basophils # (Auto) 0.0 CBC Comment DIFF FINAL Differential Comment Sodium Level 133 Potassium Level 3.2 Chloride Level 100 Carbon Dioxide Level 25.0 Anion Gap 8 Blood Urea Nitrogen 6 Creatinine 0.77 Estimat Glomerular Filtration 106 Rate Random Glucose 134 Calcium Level 7.1 Protein Corrected Calcium 7.7 Total Protein 6.0 Blood Type A POSITIVE Crossmatch Leukocyte-Reduced Red Blood Cells Blood Bank Comment Assessment and Plan Plan S/P R BKA Pt doing well this am Pain controlled Will removed dressing to R BKA in a few days OT/PT consult ordered Continue to treat with antibiotics x 2 weeks after open BKA (end 10/13) - proteus and s. aureus per cultures Roxanne DUMONT [facility]/[employer] [phone] Discharge Planning Pt will need rehab post op Roxanne Saldaña October 03, 2016 10:57
[2016-10-03] MEDS: ENOXAPARIN SODIUM 30 MG/0.3 ML SYRINGE SQ SCH (15:09)
--- NOTE | 2016-10-03 16:03 | HHI.PR ---
Subjective Remarks Patient going well postop stated pain is tolerable post BKA He has been seen by the surgery DRAWER MAKER today, was told dressing will be changed in few days Culture is positive for MSSA and Proteus which is both susceptible to quinolone I will DC Vanco if okay with surgery Objective Vitals Vital Signs Date Time Temp Pulse Resp B/P Pulse Ox O2 Delivery O2 Flow Rate FiO2 10/03/16 14:52 98.9 88 19 148/81 98 10/03/16 14:25 97.3 87 19 134/69 98 10/03/16 13:25 18 10/03/16 12:00 99.4 86 18 138/76 99 131/62 10/03/16 11:37 99.4 86 19 138/76 99 10/03/16 11:24 97.7 84 18 141/79 10/03/16 08:20 18 10/03/16 08:00 98.1 89 18 160/85 98 10/03/16 00:10 98.9 89 18 158/84 98 10/02/16 20:19 96.9 80 18 144/94 97 10/02/16 16:00 96.5 76 19 147/80 96 I/O 10/02/16 10/02/16 10/02/16 10/03/16 10/03/16 10/03/16 07:00 15:00 23:00 07:00 15:00 23:00 Intake Total 946 ml 1958 ml 1482 ml 480 ml 934 ml Output Total 1200 ml 700 ml 1000 ml 1200 ml Balance -254 ml 1258 ml 482 ml -720 ml 934 ml Intake Oral 480 ml 480 ml IV Total 946 ml 958 ml 1002 ml 934 ml Other 1000 ml Output Urine Total 1200 ml 500 ml 1000 ml 1200 ml Estimated Blood Loss 200 ml # Bowel Movements 1 1 Result Diagram: 10/03/16 0452 10/03/16 0452 Objective Remarks GENERAL: This is a well-nourished, well-developed patient, in no apparent distress. SKIN: No rashes, warm and dry HEAD: Atraumatic. Normocephalic. EYES: Pupils equal round and reactive. Extraocular motions intact. No scleral icterus. ENT: Nose without bleeding, or drainage, Airway patent. NECK: Trachea midline. Supple CARDIOVASCULAR: Regular rate and rhythm without murmurs, gallops, or rubs. RESPIRATORY: Fair air entry bilaterally. No wheezes, rales, or rhonchi. GASTROINTESTINAL: Abdomen soft, non-tender, nondistended. Positive bowel sounds MUSCULOSKELETAL: Left AKA , right BKA in gauze NEUROLOGICAL: Awake and alert. Moves all extremity. Normal speech.no focal neurological deficit A/P Assessment and Plan 09/29: Continue current care, plan for AKA on Sunday, blood pressure still not controlled to 20 will increase Lopressor and add clonidine as needed 09/30: Plan for AK and Sunday continue current care, blood pressure still not controlled will increase lisinopril and Lopressor. Monitor 10/01: Going for AKA tomorrow, check BMP CBC INR in a.m. 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 for 21/09/16 followed by right BKA on 10/02, on Cipro Flagyl, DC Vanco on 10/03, continue following blood and bone/tissue culture, surgery recommending continue antibiotic 2 weeks post BKA (and date 10/15) -PAD status post left AKA 03/2016: Continue aspirin and Lopressor -Chronic anemia : Low iron, saturation, TIBC, ferritin is high for 59 most likely chronic disease -Hyponatremia with hypomagnesemia: Monitor and replace as needed, hyponatremia mostly due to alcohol abuse -Hyperglycemia mostly prediabetic : Accu-Chek and ISS, A1c 5.4, FBG 136 - 122- 139>> to fasting blood glucose of 126 diabetes mellitus per definition -Hypertension: Resume home meds, on metoprolol, add Vasotec as needed, Norvasc -Alcohol abuse: Counseled, folic acid thiamine, Ativan as needed -Penicillin allergy -DVT prophylaxis, on Lovenox Nemou,Morales MD October 03, 2016 16:03
[2016-10-03] MEDS ORDERED: HYDROmorphone HCL PF 1 MG/ML VIAL IV PUSH ONE (19:30)
[2016-10-03 19:46] LABS: HEMATOCRIT 26.7 % (39.0-51.0); REVIEW FLAG FINAL
[2016-10-03] MEDS: ATORVASTATIN 40 MG TAB PO SCH (20:12)
[2016-10-04] VITALS: BP 166/96; PULSE 87; RESP 18; TEMP 99.7; O2SAT 97
[2016-10-04] MEDS: HYDROmorphone HCL PF 1 MG/ML VIAL IV PRN ×4 (01:10→11:03)
[2016-10-04] MEDS: HYDROmorphone HCL 2 MG TAB PO PRN ×5 (03:14→21:33)
[2016-10-04] MEDS: metroNIDAZOLE 500 MG INJ 100 ML IV SCH ×3 (05:05→21:41)
[2016-10-04] MEDS: INSULIN ASPART SUPPLEMENTAL SCALE SQ SCH ×4 (05:08→21:00)
[2016-10-04 06:18] LABS: AUTOMATED NEUTROPHIL # 11.1 TH/MM3 (1.8-7.7); BASOPHIL % 0.2 % (0.0-2.0); EOSINOPHIL % 0.2 % (0.0-4.0); HEMATOCRIT 25.8 % (39.0-51.0); HEMO FLAGS DIFF FINAL; LYMPH % 13.3 % (9.0-44.0); LYMPHOCYTE # 1.9 TH/MM3 (1.0-4.8); MEAN CELL VOLUME 81.8 FL (80.0-100.0); MEAN CORPUSCULAR HEMOGLOBIN 28.1 PG (27.0-34.0); MEAN CORPUSCULAR HGB CONC 34.3 % (32.0-36.0); MONO % 9.7 % (0.0-8.0); NEUT % 76.6 % (16.0-70.0); PLATELET COUNT 200 TH/MM3 (150-450); RED BLOOD COUNT 3.15 MIL/MM3 (4.50-5.90); RED CELL DISTRIBUTION WIDTH 14.6 % (11.6-17.2); WHITE BLOOD COUNT 14.5 TH/MM3 (4.0-11.0)
[2016-10-04 06:44] LABS: BICARBONATE 25.4 MEQ/L (21.0-32.0)
[2016-10-04] MEDS: METOPROLOL TARTRATE 25 MG TAB PO SCH ×2 (07:37→21:36)
[2016-10-04] MEDS: PANTOPRAZOLE SOD 40 MG DELAYED RELEASE TAB PO SCH (07:37)
[2016-10-04] MEDS: LISINOPRIL 10 MG TAB PO SCH (07:37)
[2016-10-04] MEDS: MULTIVITAMIN TAB PO SCH (07:37)
[2016-10-04] MEDS: ASPIRIN 325 MG TAB PO SCH (07:37)
[2016-10-04] MEDS: CALCIUM CARBONATE 500 MG CHEWABLE TAB CHEW SCH (07:37)
[2016-10-04] MEDS: DOCUSATE SODIUM 100 MG CAP PO SCH ×2 (07:38→21:00)
[2016-10-04] MEDS: CIPROFLOXACIN 400 MG PREMIX 200 ML IV SCH ×2 (07:38→21:34)
[2016-10-04 08:00] VITALS: BP 171/89; PULSE 89; RESP 16; TEMP 98.4; O2SAT 96
[2016-10-04 10:54] VITALS: O2SAT 97
--- NOTE | 2016-10-04 11:04 | HHI.PR ---
Subjective Remarks Patient doing his physical therapy session, afebrile stated pain is tolerable Dressing changes per surgery Blood pressure still not optimized will increase lisinopril Objective Vitals Vital Signs Date Time Temp Pulse Resp B/P Pulse Ox O2 Delivery O2 Flow Rate FiO2 10/04/16 10:54 97 21 10/04/16 08:36 18 10/04/16 08:00 98.4 89 16 171/89 96 10/04/16 00:00 99.7 87 18 166/96 97 10/03/16 22:00 99.4 87 18 163/102 98 10/03/16 21:37 97 21 10/03/16 18:05 18 10/03/16 16:00 98.4 90 18 156/87 97 10/03/16 14:52 98.9 88 19 148/81 98 10/03/16 14:25 97.3 87 19 134/69 98 10/03/16 12:00 99.4 86 18 138/76 99 131/62 10/03/16 11:37 99.4 86 19 138/76 99 10/03/16 11:24 97.7 84 18 141/79 I/O 10/03/16 10/03/16 10/03/16 10/04/16 10/04/16 10/04/16 07:00 15:00 23:00 07:00 15:00 23:00 Intake Total 480 ml 1334 ml 954 ml 1205 ml Output Total 1200 ml 925 ml 825 ml 650 ml Balance -720 ml 409 ml 129 ml 555 ml Intake Oral 480 ml 400 ml 240 ml 480 ml IV Total 934 ml 714 ml 725 ml Output Urine Total 1200 ml 925 ml 825 ml 650 ml # Bowel Movements 1 1 Result Diagram: 10/04/16 0511 10/04/16 0511 Objective Remarks GENERAL: This is a well-nourished, well-developed patient, in no apparent distress. SKIN: No rashes, warm and dry HEAD: Atraumatic. Normocephalic. EYES: Pupils equal round and reactive. Extraocular motions intact. No scleral icterus. ENT: Nose without bleeding, or drainage, Airway patent. NECK: Trachea midline. Supple CARDIOVASCULAR: Regular rate and rhythm without murmurs, gallops, or rubs. RESPIRATORY: Fair air entry bilaterally. No wheezes, rales, or rhonchi. GASTROINTESTINAL: Abdomen soft, non-tender, nondistended. Positive bowel sounds MUSCULOSKELETAL: Left AKA , right BKA in gauze NEUROLOGICAL: Awake and alert. Moves all extremity. Normal speech.no focal neurological deficit A/P Assessment and Plan 09/29: Continue current care, plan for AKA on Sunday, blood pressure still not controlled to 20 will increase Lopressor and add clonidine as needed 09/30: Plan for AK and Sunday continue current care, blood pressure still not controlled will increase lisinopril and Lopressor. Monitor 10/01: Going for AKA tomorrow, check BMP CBC INR in a.m. 10/02: R BKA today, CBC BMP reviewed showing mild increase WBC without left shift , and hypocalcemia patient placed on calcium carbonate 10/03: Status post right BKA PAD #1, culture positive for Proteus and MSSA susceptible to quinolone I will DC Vanco if okay with surgery, changing dressing by surgery in few days 10/04: Doing well postop, physical therapy session now, blood pressure still not optimized will increase lisinopril 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 for 21/09/16 followed by right BKA on 10/02, on Cipro Flagyl, DC Vanco on 10/03, continue following blood and bone/tissue culture, surgery recommending continue antibiotic 2 weeks post BKA (and date 10/15) -PAD status post left AKA 03/2016: Continue aspirin and Lopressor -Chronic anemia : Low iron, saturation, TIBC, ferritin is high for 59 most likely chronic disease -Hyponatremia with hypomagnesemia: Monitor and replace as needed, hyponatremia mostly due to alcohol abuse -Hyperglycemia mostly prediabetic : Accu-Chek and ISS, A1c 5.4, FBG 136 - 122- 139>> to fasting blood glucose of 126 diabetes mellitus per definition -Hypertension: Resume home meds, on metoprolol, add Vasotec as needed, Norvasc -Alcohol abuse: Counseled, folic acid thiamine, Ativan as needed -Penicillin allergy -DVT prophylaxis, on Lovenox Carmen Park MD October 04, 2016 11:04
[2016-10-04 12:00] VITALS: BP 144/80; PULSE 82; RESP 17; TEMP 97.2; O2SAT 100
[2016-10-04] MEDS: DEXT 5%-NACL 0.9% 1000 ML INJ 1,000 ML IV SCH ×2 (12:00→21:41)
[2016-10-04] MEDS: ENOXAPARIN SODIUM 30 MG/0.3 ML SYRINGE SQ SCH (15:20)
[2016-10-04 16:00] VITALS: BP 154/81; PULSE 90; RESP 16; TEMP 99.5; O2SAT 99
[2016-10-04 20:00] VITALS: BP 155/91; PULSE 92; RESP 20; TEMP 99.6; O2SAT 99
[2016-10-04] MEDS: ATORVASTATIN 40 MG TAB PO SCH (21:00)
[2016-10-04] MEDS: LISINOPRIL 20 MG TAB PO SCH (21:39)
[2016-10-04] MEDS: LORazepam 2 MG/ML VIAL IV PUSH PRN (21:51)
[2016-10-05] VITALS: BP 141/88; PULSE 93; RESP 20; TEMP 98.8; O2SAT 98
[2016-10-05] MEDS: HYDROmorphone HCL PF 1 MG/ML VIAL IV PRN ×5 (00:47→21:03)
[2016-10-05] MEDS: LORazepam 2 MG/ML VIAL IV PUSH PRN ×2 (03:05→12:31)
[2016-10-05] MEDS: HYDROmorphone HCL 2 MG TAB PO PRN ×4 (03:07→22:58)
[2016-10-05] MEDS: metroNIDAZOLE 500 MG INJ 100 ML IV SCH ×3 (05:31→21:06)
[2016-10-05] MEDS: INSULIN ASPART SUPPLEMENTAL SCALE SQ SCH ×4 (05:31→21:08)
[2016-10-05 08:00] VITALS: BP 168/85; PULSE 89; RESP 18; TEMP 100.1; O2SAT 96
[2016-10-05] MEDS: DOCUSATE SODIUM 100 MG CAP PO SCH ×2 (09:00→19:37)
[2016-10-05] MEDS: ASPIRIN 325 MG TAB PO SCH (09:41)
[2016-10-05] MEDS: CALCIUM CARBONATE 500 MG CHEWABLE TAB CHEW SCH ×2 (09:41→19:33)
[2016-10-05] MEDS: PANTOPRAZOLE SOD 40 MG DELAYED RELEASE TAB PO SCH (09:42)
[2016-10-05] MEDS: LISINOPRIL 20 MG TAB PO SCH ×2 (09:42→19:33)
[2016-10-05] MEDS: METOPROLOL TARTRATE 25 MG TAB PO SCH ×2 (09:42→19:33)
[2016-10-05] MEDS: MULTIVITAMIN TAB PO SCH (09:42)
[2016-10-05] MEDS: CIPROFLOXACIN 400 MG PREMIX 200 ML IV SCH ×2 (09:43→19:35)
[2016-10-05] MEDS: DEXT 5%-NACL 0.9% 1000 ML INJ 1,000 ML IV SCH ×2 (09:43→17:31)
--- NOTE | 2016-10-05 10:00 | HHI.PR ---
Subjective Remarks Follow up on PAD, status post right BKA Patient Is doing well resting in bed, afebrile He complained his pain is still not controlled, I discussed with the nurse, patient has been knocked out this morning, questionable drug-seeking behavior Objective Vitals Vital Signs Date Time Temp Pulse Resp B/P Pulse Ox O2 Delivery O2 Flow Rate FiO2 10/05/16 08:00 100.1 89 18 168/85 96 10/05/16 00:00 98.8 93 20 141/88 98 10/04/16 20:00 99.6 92 20 155/91 99 10/04/16 18:47 18 10/04/16 16:00 99.5 90 16 154/81 99 10/04/16 12:00 97.2 82 17 144/80 100 10/04/16 10:54 97 21 I/O 10/04/16 10/04/16 10/04/16 10/05/16 10/05/16 10/05/16 07:00 15:00 23:00 07:00 15:00 23:00 Intake Total 1205 ml 1595 ml 1303 ml 720 ml Output Total 650 ml 425 ml 600 ml 1250 ml Balance 555 ml 1170 ml 703 ml -530 ml Intake Oral 480 ml 720 ml 480 ml 720 ml IV Total 725 ml 875 ml 823 ml Output Urine Total 650 ml 425 ml 600 ml 1250 ml # Bowel Movements 2 0 0 Result Diagram: 10/04/16 0511 10/04/16 05 Objective Remarks GENERAL: This is a well-nourished, well-developed patient, in no apparent distress. SKIN: No rashes, warm and dry HEAD: Atraumatic. Normocephalic. EYES: Pupils equal round and reactive. Extraocular motions intact. No scleral icterus. ENT: Nose without bleeding, or drainage, Airway patent. NECK: Trachea midline. Supple CARDIOVASCULAR: Regular rate and rhythm without murmurs, gallops, or rubs. RESPIRATORY: Fair air entry bilaterally. No wheezes, rales, or rhonchi. GASTROINTESTINAL: Abdomen soft, non-tender, nondistended. Positive bowel sounds MUSCULOSKELETAL: Left AKA , right BKA in gauze NEUROLOGICAL: Awake and alert. Moves all extremity. 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 followed by right BKA on 10/02, on Cipro Flagyl, culture showing right distal Larissa and MSSA, status post Vanco on stopped on 10/03, continue following blood and bone/tissue culture, surgery recommending continue antibiotic 2 weeks post BKA (and date 10/15), if WBC not normalize consider consulting ID -PAD status post left AKA 03/2016: Continue aspirin and Lopressor -Chronic anemia : Low iron, saturation, TIBC, ferritin is high for 61 most likely chronic disease -Hyponatremia with hypomagnesemia: Monitor and replace as needed, hyponatremia mostly due to alcohol abuse -Hyperglycemia mostly prediabetic : Accu-Chek and ISS, A1c 5.4, FBG 136 - 122- 139>> to fasting blood glucose of 126 diabetes mellitus per definition -Hypertension: Resume home meds, on metoprolol, add Vasotec as needed, Norvasc -Alcohol abuse: Counseled, folic acid thiamine, Ativan as needed -Penicillin allergy -DVT prophylaxis, on Lovenox Discharge Planning When cleared by surgery Carmen Park MD October 05, 2016 10:00 Carmen aPrk MD October 05, 2016 10:00
--- NOTE | 2016-10-05 11:37 | PD.VS.PN ---
Subjective POD #: 3 Procedure(s): R BKA Subjective/Hospital Course Pt resting in bed alert and in NAD c/o breakthough pain working on rehab/placement options Objective Vitals/I&O Date Time Temp Pulse Resp B/P Pulse Ox O2 Delivery O2 Flow Rate FiO2 10/05/16 08:00 100.1 89 18 168/85 96 10/05/16 00:00 98.8 93 20 141/88 98 10/04/16 20:00 99.6 92 20 155/91 99 10/04/16 18:47 18 10/04/16 16:00 99.5 90 16 154/81 99 10/04/16 12:00 97.2 82 17 144/80 100 10/05/16 10/05/16 10/05/16 07:00 15:00 23:00 Intake Total 720 ml Output Total 1250 ml Balance -530 ml Exam: R BKA stump looks good ecchymoses at posterior flap for 2-3 mm but does not appear ischemic Assessment and Plan Plan BKA looks good Change DAVID wrap daily and re-wrap PT for ROM skye full knee extension ok to be d/c to rehab from vasc standpoint will arrange RTC 2-3 weeks Discharge Planning Pt will need rehab post op Rajesh Rowley MD October 05, 2016 11:37
[2016-10-05 12:00] VITALS: BP 174/90; PULSE 84; RESP 17; TEMP 97.5; O2SAT 99
[2016-10-05] MEDS: ENOXAPARIN SODIUM 30 MG/0.3 ML SYRINGE SQ SCH (15:00)
[2016-10-05 16:00] VITALS: BP 149/76; PULSE 88; RESP 17; TEMP 100; O2SAT 99
[2016-10-05] MEDS: ATORVASTATIN 40 MG TAB PO SCH (19:32)
[2016-10-05 20:41] VITALS: BP 155/84; PULSE 82; RESP 18; TEMP 99.2; O2SAT 96
[2016-10-05] MEDS: POTASSIUM CHLORIDE 20 MEQ CONTROLLED RELEASE TAB PO SCH (22:58)
[2016-10-06] MEDS: HYDROmorphone HCL PF 1 MG/ML VIAL IV PRN ×6 (00:08→20:04)
[2016-10-06 00:33] VITALS: BP 149/83; PULSE 80; RESP 18; TEMP 97.9; O2SAT 98
[2016-10-06] MEDS: POTASSIUM CHLORIDE 20 MEQ CONTROLLED RELEASE TAB PO SCH (02:18)
[2016-10-06] MEDS: DEXT 5%-NACL 0.9% 1000 ML INJ 1,000 ML IV SCH ×2 (04:00→11:00)
[2016-10-06] MEDS: HYDROmorphone HCL 2 MG TAB PO PRN ×4 (04:19→23:34)
[2016-10-06] MEDS: metroNIDAZOLE 500 MG INJ 100 ML IV SCH ×3 (04:20→21:03)
[2016-10-06] MEDS: INSULIN ASPART SUPPLEMENTAL SCALE SQ SCH ×4 (05:30→20:01)
[2016-10-06 06:09] LABS: BASOPHIL # 0.1 TH/MM3 (0-0.2); BASOPHIL % 0.4 % (0.0-2.0); EOSINOPHIL # 0.2 TH/MM3 (0-0.4); EOSINOPHIL % 1.4 % (0.0-4.0); HEMATOCRIT 23.9 % (39.0-51.0); HEMO FLAGS DIFF FINAL; LYMPHOCYTE # 2.2 TH/MM3 (1.0-4.8); MEAN CELL VOLUME 82.1 FL (80.0-100.0); MEAN CORPUSCULAR HEMOGLOBIN 28.1 PG (27.0-34.0); MEAN CORPUSCULAR HGB CONC 34.2 % (32.0-36.0); MONO % 11.2 % (0.0-8.0); PLATELET COUNT 218 TH/MM3 (150-450); RED BLOOD COUNT 2.91 MIL/MM3 (4.50-5.90); RED CELL DISTRIBUTION WIDTH 14.3 % (11.6-17.2); WHITE BLOOD COUNT 11.7 TH/MM3 (4.0-11.0)
[2016-10-06] MEDS ORDERED: POTASSIUM CHLOR 20 MEQ PREMIX 100 ML IV PRN (06:30)
[2016-10-06 06:36] LABS: BICARBONATE 25.2 MEQ/L (21.0-32.0); POTASSIUM 3.3 MEQ/L (3.5-5.1)
[2016-10-06 08:00] VITALS: BP 171/89; PULSE 88; RESP 18; TEMP 97.8; O2SAT 98
[2016-10-06] MEDS: LISINOPRIL 20 MG TAB PO SCH ×2 (09:38→21:03)
[2016-10-06] MEDS: DOCUSATE SODIUM 100 MG CAP PO SCH ×2 (09:38→20:03)
[2016-10-06] MEDS: CALCIUM CARBONATE 500 MG CHEWABLE TAB CHEW SCH ×2 (09:39→20:03)
[2016-10-06] MEDS: METOPROLOL TARTRATE 25 MG TAB PO SCH ×2 (09:39→21:03)
[2016-10-06] MEDS: MULTIVITAMIN TAB PO SCH (09:39)
[2016-10-06] MEDS: PANTOPRAZOLE SOD 40 MG DELAYED RELEASE TAB PO SCH (09:39)
[2016-10-06] MEDS: ASPIRIN 325 MG TAB PO SCH (09:39)
[2016-10-06] MEDS: CIPROFLOXACIN 400 MG PREMIX 200 ML IV SCH ×2 (09:41→20:01)
[2016-10-06 12:00] VITALS: BP 160/93; PULSE 83; RESP 20; TEMP 97.7; O2SAT 100
--- NOTE | 2016-10-06 13:14 | HHI.PR ---
Subjective Remarks In bed. Says he has pain in his leg. No n/v/d/c. No fever or chills overnight. Objective Vitals Vital Signs Date Time Temp Pulse Resp B/P Pulse Ox O2 Delivery O2 Flow Rate FiO2 10/06/16 12:00 97.7 83 20 160/93 100 10/06/16 08:00 97.8 88 18 171/89 98 10/06/16 06:09 18 10/06/16 05:30 18 10/06/16 00:33 97.9 80 18 149/83 98 10/05/16 20:41 99.2 82 18 155/84 96 10/05/16 16:00 100.0 88 17 149/76 99 I/O 10/05/16 10/05/16 10/05/16 10/06/16 10/06/16 10/06/16 07:00 15:00 23:00 07:00 15:00 23:00 Intake Total 720 ml 480 ml 580 ml 760 ml Output Total 1250 ml 900 ml 1200 ml 1500 ml Balance -530 ml -420 ml -620 ml -740 ml Intake Oral 720 ml 480 ml 580 ml 760 ml Output Urine Total 1250 ml 900 ml 1200 ml 1500 ml # Bowel Movements 0 1 Result Diagram: 10/06/16 0514 10/06/16 0514 Imaging Last Impressions Chest X-Ray 09/25/16 1337 Signed Impressions: Service Date/Time: Sunday, September 25, 2016 13:49 - CONCLUSION: No acute cardiopulmonary process. Lungs are clear. Chencho Mckeon MD Foot X-Ray 09/25/16 0000 Signed Impressions: Service Date/Time: Sunday, September 25, 2016 13:52 - CONCLUSION: 1. Possible healing fracture of the third proximal phalanx. 2. Soft tissue swelling and multiple gas bubbles in the soft tissues which could indicate infection. No definite destructive changes identified. Harsh Aguirre MD Objective Remarks GENERAL: This is a well-nourished, well-developed patient, in no apparent distress. SKIN: No rashes, warm and dry HEAD: Atraumatic. Normocephalic. EYES: Pupils equal round and reactive. Extraocular motions intact. No scleral icterus. ENT: Nose without bleeding, or drainage, Airway patent. NECK: Trachea midline. Supple CARDIOVASCULAR: Regular rate and rhythm without murmurs, gallops, or rubs. RESPIRATORY: Fair air entry bilaterally. No wheezes, rales, or rhonchi. GASTROINTESTINAL: Abdomen soft, non-tender, nondistended. Positive bowel sounds MUSCULOSKELETAL: Left AKA , right BKA in gauze NEUROLOGICAL: Awake and alert. Moves all extremity. 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 followed by right BKA on 10/02, on Cipro Flagyl, culture showing right distal Larissa and MSSA, status post Vanco on stopped on 10/03, continue following blood and bone/tissue culture, surgery recommending continue antibiotic 2 weeks post BKA (and date 10/15), if WBC not normalize consider consulting ID -PAD status post left AKA 03/2016: Continue aspirin and Lopressor -Chronic anemia : Low iron, saturation, TIBC, ferritin is high for 61 most likely chronic disease -Hyponatremia with hypomagnesemia: Monitor and replace as needed, hyponatremia mostly due to alcohol abuse -Hyperglycemia mostly prediabetic : Accu-Chek and ISS, A1c 5.4, FBG 136 - 122- 139>> to fasting blood glucose of 126 diabetes mellitus per definition -Hypertension: Resume home meds, on metoprolol, add Vasotec as needed, Norvasc -Alcohol abuse: Counseled, folic acid thiamine, Ativan as needed -Penicillin allergy -DVT prophylaxis, on Lovenox Discharge Planning Plan to DC to rehab , cleared by surgery Discussed with the CM , difficult DC as patient doesn't have insurance. CM following. Mariana Sood MD October 06, 2016 13:14
[2016-10-06] MEDS ORDERED: LISI-515 PO (13:20)
[2016-10-06] MEDS ORDERED: METO25TA3 PO (13:20)
[2016-10-06] MEDS ORDERED: CALC500C16 CHEW (13:20)
[2016-10-06] MEDS ORDERED: ATOR40TA16 PO (13:20)
[2016-10-06] MEDS ORDERED: NORC5TAB PO (13:20)
[2016-10-06] MEDS ORDERED: CIPR500T2 PO (13:20)
[2016-10-06] MEDS ORDERED: PANT40TA3 PO (13:20)
[2016-10-06] MEDS ORDERED: AMLO10 PO (13:20)
[2016-10-06] MEDS ORDERED: ASPI325T PO (13:20)
[2016-10-06] MEDS ORDERED: METR-1 PO (13:20)
--- NOTE | 2016-10-06 13:20 | HHI.DS ---
Discharge Summary Admission Date Sep 25, 2016 at 14:59 Admitting Diagnosis sepsis, gangrene CBC/BMP: 10/06/16 0514 10/06/16 0514 Significant Findings Laboratory Tests Test 10/03/16 10/04/16 10/05/16 10/06/16 19:15 05:11 12:48 05:14 Hemoglobin 9.3 GM/DL 8.8 GM/DL 8.2 GM/DL (13.0-17.0) (13.0-17.0) (13.0-17.0) Hematocrit 26.7 % 25.8 % 23.9 % (39.0-51.0) (39.0-51.0) (39.0-51.0) White Blood Count 14.5 TH/MM3 11.7 TH/MM3 (4.0-11.0) (4.0-11.0) Red Blood Count 3.15 MIL/MM3 2.91 MIL/MM3 (4.50-5.90) (4.50-5.90) Neutrophils (%) (Auto) 76.6 % (16.0-70.0) Monocytes (%) (Auto) 9.7 % (0.0-8.0) 11.2 % (0.0-8.0) Neutrophils # (Auto) 11.1 TH/MM3 8.0 TH/MM3 (1.8-7.7) (1.8-7.7) Monocytes # (Auto) 1.4 TH/MM3 1.3 TH/MM3 (0-0.9) (0-0.9) Sodium Level 132 MEQ/L 130 MEQ/L (136-145) (136-145) Potassium Level 3.0 MEQ/L 3.1 MEQ/L 3.3 MEQ/L (3.5-5.1) (3.5-5.1) (3.5-5.1) Chloride Level 97 MEQ/L (98-107) Blood Urea Nitrogen 5 MG/DL (7-18) 6 MG/DL (7-18) Random Glucose 133 MG/DL 121 MG/DL (74-106) (74-106) Calcium Level 7.5 MG/DL 7.4 MG/DL (8.5-10.1) (8.5-10.1) Protein Corrected Calcium 8.0 MG/DL (8.5-10.1) Total Protein 6.0 GM/DL (6.4-8.2) PE at Discharge GENERAL: This is a well-nourished, well-developed patient, in no apparent distress. SKIN: No rashes, warm and dry HEAD: Atraumatic. Normocephalic. EYES: Pupils equal round and reactive. Extraocular motions intact. No scleral icterus. ENT: Nose without bleeding, or drainage, Airway patent. NECK: Trachea midline. Supple CARDIOVASCULAR: Regular rate and rhythm without murmurs, gallops, or rubs. RESPIRATORY: Fair air entry bilaterally. No wheezes, rales, or rhonchi. GASTROINTESTINAL: Abdomen soft, non-tender, nondistended. Positive bowel sounds MUSCULOSKELETAL: Left AKA , right BKA in gauze NEUROLOGICAL: Awake and alert. Moves all extremity. Normal speech.no focal neurological deficit Pt Condition on Discharge: Stable Discharge Disposition: Discharge to SNF Discharge Instructions DIET: Follow Instructions for: Heart Healthy Diet Activities you can perform: Weight Bearing as Mariana Millan MD October 06, 2016 13:20
[2016-10-06] MEDS ORDERED: CALCIUM CARBONATE 500 MG CHEWABLE TAB CHEW SCH (13:30)
[2016-10-06] MEDS: ENOXAPARIN SODIUM 30 MG/0.3 ML SYRINGE SQ SCH (13:55)
[2016-10-06 16:00] VITALS: BP 139/77; PULSE 83; RESP 18; TEMP 97.5; O2SAT 98
[2016-10-06 20:00] VITALS: BP 141/78; PULSE 89; RESP 19; TEMP 98.3; O2SAT 99
[2016-10-06] MEDS: ATORVASTATIN 40 MG TAB PO SCH (20:02)
[2016-10-06] MEDS: POTASSIUM CHLORIDE 25 MEQ EFFERVESCENT TAB PO SCH (20:02)
[2016-10-07] VITALS: BP 160/85; PULSE 86; RESP 20; TEMP 98.2; O2SAT 97
[2016-10-07] MEDS: HYDROmorphone HCL PF 1 MG/ML VIAL IV PRN ×3 (00:32→21:22)
[2016-10-07] MEDS: DEXT 5%-NACL 0.9% 1000 ML INJ 1,000 ML IV SCH ×2 (00:32→10:02)
[2016-10-07] MEDS: HYDROmorphone HCL 2 MG TAB PO PRN ×5 (03:36→23:12)
[2016-10-07] MEDS: metroNIDAZOLE 500 MG INJ 100 ML IV SCH ×3 (05:54→21:22)
[2016-10-07] MEDS: INSULIN ASPART SUPPLEMENTAL SCALE SQ SCH ×4 (07:00→19:45)
[2016-10-07 08:00] VITALS: BP 170/90; PULSE 84; RESP 18; TEMP 96.9; O2SAT 99
[2016-10-07] MEDS: METOPROLOL TARTRATE 25 MG TAB PO SCH ×2 (08:02→19:35)
[2016-10-07] MEDS: CIPROFLOXACIN 400 MG PREMIX 200 ML IV SCH ×2 (08:02→19:31)
[2016-10-07] MEDS: DOCUSATE SODIUM 100 MG CAP PO SCH ×2 (08:03→19:31)
[2016-10-07] MEDS: MULTIVITAMIN TAB PO SCH (08:03)
[2016-10-07] MEDS: ASPIRIN 325 MG TAB PO SCH (08:03)
[2016-10-07] MEDS: LISINOPRIL 20 MG TAB PO SCH ×2 (08:03→19:35)
[2016-10-07] MEDS: PANTOPRAZOLE SOD 40 MG DELAYED RELEASE TAB PO SCH (08:03)
[2016-10-07] MEDS: POTASSIUM CHLORIDE 25 MEQ EFFERVESCENT TAB PO SCH ×2 (08:03→19:32)
[2016-10-07] MEDS: CALCIUM CARBONATE 500 MG CHEWABLE TAB CHEW SCH ×2 (08:03→19:31)
--- NOTE | 2016-10-07 11:30 | HHI.PR ---
Subjective Remarks Patient in nad. No fever or chills. No n/v/d/c. Denies chest pain or sob. Says she still has significant pain at the surgical site. Per nurse he is asking for pain meds. Objective Vitals Vital Signs Date Time Temp Pulse Resp B/P Pulse Ox O2 Delivery O2 Flow Rate FiO2 10/07/16 08:00 96.9 84 18 170/90 99 10/07/16 00:00 98.2 86 20 160/85 97 10/06/16 20:00 98.3 89 19 141/78 99 10/06/16 16:00 97.5 83 18 139/77 98 10/06/16 13:36 16 10/06/16 12:00 97.7 83 20 160/93 100 I/O 10/06/16 10/06/16 10/06/16 10/07/16 10/07/16 10/07/16 07:00 15:00 23:00 07:00 15:00 23:00 Intake Total 760 ml 480 ml 1520 ml 1359 ml Output Total 1500 ml 700 ml 400 ml 1400 ml Balance -740 ml -220 ml 1120 ml -41 ml Intake Oral 760 ml 480 ml 360 ml 360 ml IV Total 1160 ml 999 ml Output Urine Total 1500 ml 700 ml 400 ml 1400 ml # Bowel Movements 2 0 2 Result Diagram: 10/06/1651310/06/16513 Objective Remarks GENERAL: This is a well-nourished, well-developed patient, in no apparent distress. SKIN: No rashes, warm and dry HEAD: Atraumatic. Normocephalic. EYES: Pupils equal round and reactive. Extraocular motions intact. No scleral icterus. ENT: Nose without bleeding, or drainage, Airway patent. NECK: Trachea midline. Supple CARDIOVASCULAR: Regular rate and rhythm without murmurs, gallops, or rubs. RESPIRATORY: Fair air entry bilaterally. No wheezes, rales, or rhonchi. GASTROINTESTINAL: Abdomen soft, non-tender, nondistended. Positive bowel sounds MUSCULOSKELETAL: Left AKA , right BKA in gauze NEUROLOGICAL: Awake and alert. Moves all extremity. 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 followed by right BKA on 10/02, on Cipro Flagyl, culture showing right distal Larissa and MSSA, status post Vanco on stopped on 10/03, continue following blood and bone/tissue culture, surgery recommending continue antibiotic 2 weeks post BKA (and date 10/15), if WBC not normalize consider consulting ID -PAD status post left AKA 03/2016: Continue aspirin and Lopressor -Chronic anemia : Low iron, saturation, TIBC, ferritin is high for 61 most likely chronic disease -Hyponatremia with hypomagnesemia: Monitor and replace as needed, hyponatremia mostly due to alcohol abuse -Hyperglycemia mostly prediabetic : Accu-Chek and ISS, A1c 5.4, FBG 136 - 122- 139>> to fasting blood glucose of 126 diabetes mellitus per definition -Hypertension: Resume home meds, on metoprolol, add Vasotec as needed, Norvasc -Alcohol abuse: Counseled, folic acid thiamine, Ativan as needed -Penicillin allergy -DVT prophylaxis, on Lovenox Discharge Planning Plan to DC to rehab , cleared by surgery Discussed with the CM , difficult DC as patient doesn't have insurance. CM following. Mariana Sood MD October 07, 2016 11:30
[2016-10-07 12:00] VITALS: BP 150/90; PULSE 86; RESP 18; TEMP 97.4; O2SAT 94
[2016-10-07] MEDS: ENOXAPARIN SODIUM 30 MG/0.3 ML SYRINGE SQ SCH (14:03)
[2016-10-07 16:00] VITALS: BP 156/94; PULSE 88; RESP 18; TEMP 97.1; O2SAT 98
[2016-10-07] MEDS: ATORVASTATIN 40 MG TAB PO SCH (19:32)
[2016-10-07 20:00] VITALS: BP 165/82; PULSE 88; RESP 17; TEMP 99.2; O2SAT 99
[2016-10-08] VITALS: BP 155/83; PULSE 86; RESP 17; TEMP 97.2; O2SAT 98
[2016-10-08] MEDS: HYDROmorphone HCL PF 1 MG/ML VIAL IV PRN ×4 (01:03→22:59)
[2016-10-08] MEDS: DEXT 5%-NACL 0.9% 1000 ML INJ 1,000 ML IV SCH ×4 (03:17→17:51)
[2016-10-08] MEDS: HYDROmorphone HCL 2 MG TAB PO PRN ×5 (03:17→21:33)
[2016-10-08] MEDS: INSULIN ASPART SUPPLEMENTAL SCALE SQ SCH ×4 (05:06→20:05)
[2016-10-08] MEDS: metroNIDAZOLE 500 MG INJ 100 ML IV SCH ×3 (06:09→21:33)
[2016-10-08] MEDS: CIPROFLOXACIN 400 MG PREMIX 200 ML IV SCH ×2 (07:42→19:55)
[2016-10-08] MEDS: LISINOPRIL 20 MG TAB PO SCH ×2 (07:43→19:55)
[2016-10-08] MEDS: ASPIRIN 325 MG TAB PO SCH (07:43)
[2016-10-08] MEDS: POTASSIUM CHLORIDE 25 MEQ EFFERVESCENT TAB PO SCH ×2 (07:43→19:55)
[2016-10-08] MEDS: METOPROLOL TARTRATE 25 MG TAB PO SCH ×2 (07:43→19:55)
[2016-10-08] MEDS: PANTOPRAZOLE SOD 40 MG DELAYED RELEASE TAB PO SCH (07:43)
[2016-10-08] MEDS: CALCIUM CARBONATE 500 MG CHEWABLE TAB CHEW SCH ×2 (07:43→19:55)
[2016-10-08] MEDS: MULTIVITAMIN TAB PO SCH (07:43)
[2016-10-08] MEDS: DOCUSATE SODIUM 100 MG CAP PO SCH ×2 (07:44→19:55)
[2016-10-08 08:00] VITALS: BP 162/88; PULSE 88; RESP 18; TEMP 99.6; O2SAT 97
--- NOTE | 2016-10-08 10:25 | HHI.PR ---
Subjective Remarks Complaining always of pain , per nurse he is not skipping any pain meds. Patient appears in nad. He has no fever or chills. No n/v/d/c. Had multiple large BM yesterday. No other complaints except pain at the surgical site. Objective Vitals Vital Signs Date Time Temp Pulse Resp B/P Pulse Ox O2 Delivery O2 Flow Rate FiO2 10/08/16 08:00 99.6 88 18 162/88 97 10/08/16 00:00 97.2 86 17 155/83 98 10/07/16 20:00 99.2 88 17 165/82 99 10/07/16 16:00 97.1 88 18 156/94 98 10/07/16 12:00 97.4 86 18 150/90 94 I/O 10/07/16 10/07/16 10/07/16 10/08/16 10/08/16 10/08/16 07:00 15:00 23:00 07:00 15:00 23:00 Intake Total 1359 ml 882 ml 984 ml 1036 ml Output Total 1400 ml 1200 ml 1800 ml 1300 ml Balance -41 ml -318 ml -816 ml -264 ml Intake Oral 360 ml 100 ml 480 ml 240 ml IV Total 999 ml 782 ml 504 ml 796 ml Output Urine Total 1400 ml 1200 ml 1800 ml 1300 ml # Bowel Movements 2 0 Result Diagram: 10/06/16 0514 10/06/16 0514 Imaging Last Impressions Chest X-Ray 09/25/16 1337 Signed Impressions: Service Date/Time: Sunday, September 25, 2016 13:49 - CONCLUSION: No acute cardiopulmonary process. Lungs are clear. Chencho Mckeon MD Foot X-Ray 09/25/16 0000 Signed Impressions: Service Date/Time: Sunday, September 25, 2016 13:52 - CONCLUSION: 1. Possible healing fracture of the third proximal phalanx. 2. Soft tissue swelling and multiple gas bubbles in the soft tissues which could indicate infection. No definite destructive changes identified. Harsh Aguirre MD Objective Remarks GENERAL: This is a well-nourished, well-developed patient, in no apparent distress. SKIN: No rashes, warm and dry HEAD: Atraumatic. Normocephalic. EYES: Pupils equal round and reactive. Extraocular motions intact. No scleral icterus. ENT: Nose without bleeding, or drainage, Airway patent. NECK: Trachea midline. Supple CARDIOVASCULAR: Regular rate and rhythm without murmurs, gallops, or rubs. RESPIRATORY: Fair air entry bilaterally. No wheezes, rales, or rhonchi. GASTROINTESTINAL: Abdomen soft, non-tender, nondistended. Positive bowel sounds MUSCULOSKELETAL: Left AKA , right BKA in gauze NEUROLOGICAL: Awake and alert. Moves all extremity. 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 followed by right BKA on 10/02, on Cipro Flagyl, culture showing right distal Larissa and MSSA, status post Vanco on stopped on 10/03, continue following blood and bone/tissue culture, surgery recommending continue antibiotic 2 weeks post BKA (and date 10/15), if WBC not normalize consider consulting ID -PAD status post left AKA 03/2016: Continue aspirin and Lopressor -Chronic anemia : Low iron, saturation, TIBC, ferritin is high for 61 most likely chronic disease -Hyponatremia with hypomagnesemia: Monitor and replace as needed, hyponatremia mostly due to alcohol abuse -Hyperglycemia mostly prediabetic : Accu-Chek and ISS, A1c 5.4, FBG 136 - 122- 139>> to fasting blood glucose of 126 diabetes mellitus per definition -Hypertension: Resume home meds, on metoprolol, add Vasotec as needed, Norvasc -Alcohol abuse: Counseled, folic acid thiamine, Ativan as needed -Penicillin allergy -DVT prophylaxis, on Lovenox Discharge Planning Plan to DC to rehab , cleared by surgery Discussed with the CM , difficult DC as patient doesn't have insurance. CM following. Mariana Sood MD October 08, 2016 10:25
[2016-10-08 12:00] VITALS: BP 130/75; PULSE 82; RESP 17; TEMP 97.2; O2SAT 97
[2016-10-08] MEDS: ENOXAPARIN SODIUM 30 MG/0.3 ML SYRINGE SQ SCH (15:38)
[2016-10-08 16:00] VITALS: BP 153/89; PULSE 88; RESP 18; TEMP 97.7; O2SAT 98
[2016-10-08] MEDS: ATORVASTATIN 40 MG TAB PO SCH (19:55)
[2016-10-08 20:00] VITALS: BP 157/86; PULSE 92; RESP 20; TEMP 97.8; O2SAT 97
[2016-10-09] VITALS: BP 134/82; PULSE 81; RESP 20; TEMP 97.5; O2SAT 97
[2016-10-09] MEDS: DEXT 5%-NACL 0.9% 1000 ML INJ 1,000 ML IV SCH ×3 (02:00→20:39)
[2016-10-09] MEDS: HYDROmorphone HCL PF 1 MG/ML VIAL IV PRN ×4 (02:25→20:39)
[2016-10-09] MEDS: HYDROmorphone HCL 2 MG TAB PO PRN ×4 (06:10→23:39)
[2016-10-09] MEDS: metroNIDAZOLE 500 MG INJ 100 ML IV SCH ×2 (06:11→13:39)
[2016-10-09] MEDS: INSULIN ASPART SUPPLEMENTAL SCALE SQ SCH ×4 (06:16→20:38)
[2016-10-09 08:00] VITALS: BP 136/93; PULSE 88; RESP 17; TEMP 97.6; O2SAT 98
[2016-10-09] MEDS: MULTIVITAMIN TAB PO SCH (08:35)
[2016-10-09] MEDS: CALCIUM CARBONATE 500 MG CHEWABLE TAB CHEW SCH ×2 (08:36→20:34)
[2016-10-09] MEDS: PANTOPRAZOLE SOD 40 MG DELAYED RELEASE TAB PO SCH (08:36)
[2016-10-09] MEDS: DOCUSATE SODIUM 100 MG CAP PO SCH ×2 (08:38→20:35)
[2016-10-09] MEDS: METOPROLOL TARTRATE 25 MG TAB PO SCH ×2 (08:38→20:36)
[2016-10-09] MEDS: ASPIRIN 325 MG TAB PO SCH (08:39)
[2016-10-09] MEDS: CIPROFLOXACIN 400 MG PREMIX 200 ML IV SCH (08:39)
[2016-10-09] MEDS: LISINOPRIL 20 MG TAB PO SCH ×2 (08:39→20:36)
[2016-10-09] MEDS: POTASSIUM CHLORIDE 25 MEQ EFFERVESCENT TAB PO SCH ×2 (08:40→20:36)
--- NOTE | 2016-10-09 11:13 | PD.VS.PN ---
Subjective POD #: 7 Procedure(s): R BKA Subjective/Hospital Course Pain better. Good ROM ready for rehab and pt anxious to proceed Objective Vitals/I&O Date Time Temp Pulse Resp B/P Pulse Ox O2 Delivery O2 Flow Rate FiO2 10/09/16 08:00 97.6 88 17 136/93 98 10/09/16 00:00 97.5 81 20 134/82 97 10/08/16 20:00 97.8 92 20 157/86 97 10/08/16 16:00 97.7 88 18 153/89 98 10/08/16 12:00 97.2 82 17 130/75 97 10/09/16 10/09/16 10/09/16 06:59 14:59 22:59 Intake Total 1238 ml Output Total 1875 ml Balance -637 ml Exam: R BKA with ecchymosis on inferior staple line but does not appear ischemic Assessment and Plan Plan BKA looks good ok to use stump disease case manager rn PT for ROM skye full knee extension ok to be d/c to rehab from vasc standpoint will arrange RTC 2-3 weeks Discharge Planning Pt will need rehab post op Rajesh Rowley MD October 09, 2016 11:13
--- NOTE | 2016-10-09 11:28 | HHI.PR ---
Subjective Remarks In the chair, says he is still with pain. He is concerned regarding the stay in the hospital and not going to SNF, he doesn;t have insurance, case management is working on the case, insurance pending. Patient denies any n/v/d/c. No fever or chills. Objective Vitals Vital Signs Date Time Temp Pulse Resp B/P Pulse Ox O2 Delivery O2 Flow Rate FiO2 10/09/16 08:00 97.6 88 17 136/93 98 10/09/16 00:00 97.5 81 20 134/82 97 10/08/16 20:00 97.8 92 20 157/86 97 10/08/16 16:00 97.7 88 18 153/89 98 10/08/16 12:00 97.2 82 17 130/75 97 I/O 10/08/16 10/08/16 10/08/16 10/09/16 10/09/16 10/09/16 06:59 14:59 22:59 06:59 14:59 22:59 Intake Total 1036 ml 1255 ml 740 ml 1238 ml Output Total 1300 ml 900 ml 0 ml 1875 ml Balance -264 ml 355 ml 740 ml -637 ml Intake Oral 240 ml 340 ml 240 ml 240 ml IV Total 796 ml 915 ml 500 ml 998 ml Output Urine Total 1300 ml 900 ml 0 ml 1875 ml # Bowel Movements 0 0 0 Result Diagram: 10/06/16 0514 10/06/16 0514 Imaging Last Impressions Chest X-Ray 09/25/16 1337 Signed Impressions: Service Date/Time: Sunday, September 25, 2016 13:49 - CONCLUSION: No acute cardiopulmonary process. Lungs are clear. Chencho Mckeon MD Foot X-Ray 09/25/16 0000 Signed Impressions: Service Date/Time: Sunday, September 25, 2016 13:52 - CONCLUSION: 1. Possible healing fracture of the third proximal phalanx. 2. Soft tissue swelling and multiple gas bubbles in the soft tissues which could indicate infection. No definite destructive changes identified. Harsh Aguirre MD Objective Remarks GENERAL: This is a well-nourished, well-developed patient, in no apparent distress. SKIN: No rashes, warm and dry HEAD: Atraumatic. Normocephalic. EYES: Pupils equal round and reactive. Extraocular motions intact. No scleral icterus. ENT: Nose without bleeding, or drainage, Airway patent. NECK: Trachea midline. Supple CARDIOVASCULAR: Regular rate and rhythm without murmurs, gallops, or rubs. RESPIRATORY: Fair air entry bilaterally. No wheezes, rales, or rhonchi. GASTROINTESTINAL: Abdomen soft, non-tender, nondistended. Positive bowel sounds MUSCULOSKELETAL: Left AKA , right BKA in gauze NEUROLOGICAL: Awake and alert. Moves all extremity. 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 followed by right BKA on 10/02, on Cipro Flagyl, culture showing right distal Larissa and MSSA, status post Vanco on stopped on 10/03, continue following blood and bone/tissue culture, surgery recommending continue antibiotic 2 weeks post BKA (and date 10/15), if WBC not normalize consider consulting ID -PAD status post left AKA 03/2016: Continue aspirin and Lopressor -Chronic anemia : Low iron, saturation, TIBC, ferritin is high for 61 most likely chronic disease -Hyponatremia with hypomagnesemia: Monitor and replace as needed, hyponatremia mostly due to alcohol abuse -Hyperglycemia mostly prediabetic : Accu-Chek and ISS, A1c 5.4, FBG 136 - 122- 139>> to fasting blood glucose of 126 diabetes mellitus per definition -Hypertension: Resume home meds, on metoprolol, add Vasotec as needed, Norvasc -Alcohol abuse: Counseled, folic acid thiamine, Ativan as needed -Penicillin allergy -DVT prophylaxis, on Lovenox Discharge Planning Plan to DC to rehab , cleared by surgery Discussed with the CM, difficult DC as patient doesn't have insurance. CM following. Mariana Sood MD October 09, 2016 11:28
[2016-10-09 12:00] VITALS: BP 126/77; PULSE 83; RESP 17; TEMP 96.2; O2SAT 98
[2016-10-09] MEDS: ENOXAPARIN SODIUM 30 MG/0.3 ML SYRINGE SQ SCH (13:39)
[2016-10-09 16:00] VITALS: BP 137/80; PULSE 84; RESP 16; TEMP 96.7; O2SAT 98
[2016-10-09 20:00] VITALS: BP 145/81; PULSE 80; RESP 18; TEMP 97.4; O2SAT 98
[2016-10-09] MEDS: ATORVASTATIN 40 MG TAB PO SCH (20:36)
[2016-10-09 23:54] VITALS: BP 158/89; PULSE 80; RESP 20; TEMP 97.2; O2SAT 98
[2016-10-10] MEDS: HYDROmorphone HCL PF 1 MG/ML VIAL IV PRN ×4 (01:09→22:13)
[2016-10-10] MEDS: HYDROmorphone HCL 2 MG TAB PO PRN (03:59)
[2016-10-10] MEDS: INSULIN ASPART SUPPLEMENTAL SCALE SQ SCH ×4 (04:02→22:35)
[2016-10-10 08:00] VITALS: BP_SYST 172; BP_SYST 174; BP_DIAS 92; PULSE 88; RESP 17; TEMP 97.5; O2SAT 97
[2016-10-10] MEDS ORDERED: NALOXONE HCL 0.4 MG/ML AMP IV PRN (08:15)
--- NOTE | 2016-10-10 08:19 | HHI.PR ---
Subjective Remarks Patient is taking pain meds around the clock. Plan to taper down meds. Patient doesn't appear in acute distress, he doesn't appear in pain, no tachycardia, BP is controlled. However the patient is always complaining of pain. Surgical site is healing well, no signs of infection. Patient denies any feevrs or chills. No n/v/d/c. Eating well. Awaiting placement. Objective Vitals Vital Signs Date Time Temp Pulse Resp B/P Pulse Ox O2 Delivery O2 Flow Rate FiO2 10/10/16 08:00 97.5 88 17 174/92 97 172/92 10/10/16 05:57 18 10/10/16 04:59 15 10/09/16 23:54 97.2 80 20 158/89 98 10/09/16 20:00 97.4 80 18 145/81 98 10/09/16 16:00 96.7 84 16 137/80 98 10/09/16 12:00 96.2 83 17 126/77 98 I/O 10/09/16 10/09/16 10/09/16 10/10/16 10/10/16 10/10/16 07:00 15:00 23:00 07:00 15:00 23:00 Intake Total 1238 ml 1200 ml 1286 ml 360 ml 2038 ml Output Total 1875 ml 600 ml 1750 ml 1500 ml Balance -637 ml 600 ml -464 ml -1140 ml 2038 ml Intake Oral 240 ml 1200 ml 480 ml 360 ml IV Total 998 ml 806 ml 2038 ml Output Urine Total 1875 ml 600 ml 1750 ml 1500 ml # Bowel Movements 0 1 Result Diagram: 10/06/16 0514 10/06/16 0514 Imaging Last Impressions Chest X-Ray 09/25/16 1337 Signed Impressions: Service Date/Time: Sunday, September 25, 2016 13:49 - CONCLUSION: No acute cardiopulmonary process. Lungs are clear. Chencho Mckeon MD Foot X-Ray 09/25/16 0000 Signed Impressions: Service Date/Time: Sunday, September 25, 2016 13:52 - CONCLUSION: 1. Possible healing fracture of the third proximal phalanx. 2. Soft tissue swelling and multiple gas bubbles in the soft tissues which could indicate infection. No definite destructive changes identified. Harsh Aguirre MD Objective Remarks GENERAL: This is a well-nourished, well-developed patient, in no apparent distress. SKIN: No rashes, warm and dry HEAD: Atraumatic. Normocephalic. EYES: Pupils equal round and reactive. Extraocular motions intact. No scleral icterus. ENT: Nose without bleeding, or drainage, Airway patent. NECK: Trachea midline. Supple CARDIOVASCULAR: Regular rate and rhythm without murmurs, gallops, or rubs. RESPIRATORY: Fair air entry bilaterally. No wheezes, rales, or rhonchi. GASTROINTESTINAL: Abdomen soft, non-tender, nondistended. Positive bowel sounds MUSCULOSKELETAL: Left AKA , right BKA in gauze NEUROLOGICAL: Awake and alert. Moves all extremity. 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 -PAD status post left AKA 03/2016: Continue aspirin and Lopressor -Chronic anemia : Low iron, saturation, TIBC, ferritin is high for 61 most likely chronic disease -Hyponatremia with hypomagnesemia: Monitor and replace as needed, hyponatremia mostly due to alcohol abuse -Hyperglycemia mostly prediabetic : Accu-Chek and ISS, A1c 5.4, FBG 136 - 122- 139>> to fasting blood glucose of 126 diabetes mellitus per definition -Hypertension: Resume home meds, on metoprolol, add Vasotec as needed, Norvasc -Alcohol abuse: Counseled, folic acid thiamine, Ativan as needed -Penicillin allergy -DVT prophylaxis, on Lovenox Discharge Planning Plan to DC to rehab , cleared by surgery Discussed with the CM, difficult DC as patient doesn't have insurance. CM following. Mariana Sood MD October 10, 2016 08:19
[2016-10-10] MEDS: MULTIVITAMIN TAB PO SCH (08:29)
[2016-10-10] MEDS: CALCIUM CARBONATE 500 MG CHEWABLE TAB CHEW SCH ×2 (08:29→21:00)
[2016-10-10] MEDS: LISINOPRIL 20 MG TAB PO SCH ×2 (08:30→21:03)
[2016-10-10] MEDS: cloNIDine HCL 0.1 MG TAB PO PRN (08:30)
[2016-10-10] MEDS: PANTOPRAZOLE SOD 40 MG DELAYED RELEASE TAB PO SCH (08:30)
[2016-10-10] MEDS: METOPROLOL TARTRATE 25 MG TAB PO SCH ×2 (08:30→21:04)
[2016-10-10] MEDS: ASPIRIN 325 MG TAB PO SCH (08:30)
[2016-10-10] MEDS: DEXT 5%-NACL 0.9% 1000 ML INJ 1,000 ML IV SCH ×2 (08:31→16:33)
[2016-10-10] MEDS: POTASSIUM CHLORIDE 25 MEQ EFFERVESCENT TAB PO SCH ×2 (09:00→21:00)
[2016-10-10] MEDS: DOCUSATE SODIUM 100 MG CAP PO SCH ×2 (09:00→21:00)
--- NOTE | 2016-10-10 10:36 | PD.VS.PN ---
Subjective Subjective/Hospital Course Pain controlled Objective Vitals/I&O Date Time Temp Pulse Resp B/P Pulse Ox O2 Delivery O2 Flow Rate FiO2 10/10/16 08:00 97.5 88 17 174/92 97 172/92 10/10/16 05:57 18 10/10/16 04:59 15 10/09/16 23:54 97.2 80 20 158/89 98 10/09/16 20:00 97.4 80 18 145/81 98 10/09/16 16:00 96.7 84 16 137/80 98 10/09/16 12:00 96.2 83 17 126/77 98 10/10/16 10/10/16 10/10/16 07:00 15:00 23:00 Intake Total 360 ml 2138 ml Output Total 1500 ml 400 ml Balance -1140 ml 1738 ml Assessment and Plan Plan Plan Apply stump basket maker PT for ROM skye full knee extension Ok to be d/c to rehab from vasc standpoint Will see patient in our OPC on 11/10/16 for follow up Discharge Planning Pt will need rehab post op Roxanne Saldaña October 10, 2016 10:36
[2016-10-10] MEDS ORDERED: LORazepam 2 MG/ML VIAL IV PUSH PRN (11:00)
[2016-10-10 12:00] VITALS: BP 106/58; PULSE 85; RESP 18; TEMP 98; O2SAT 99
[2016-10-10 13:11] VITALS: BP 153/83; PULSE 84; RESP 16
[2016-10-10 13:55] LABS: AUTOMATED NEUTROPHIL # 5.6 TH/MM3 (1.8-7.7); BASOPHIL % 0.6 % (0.0-2.0); EOSINOPHIL # 0.3 TH/MM3 (0-0.4); EOSINOPHIL % 3.4 % (0.0-4.0); HEMATOCRIT 28.5 % (39.0-51.0); HEMO FLAGS DIFF FINAL; LYMPH % 22.3 % (9.0-44.0); LYMPHOCYTE # 1.9 TH/MM3 (1.0-4.8); MEAN CELL VOLUME 83.1 FL (80.0-100.0); MEAN CORPUSCULAR HEMOGLOBIN 27.2 PG (27.0-34.0); MEAN CORPUSCULAR HGB CONC 32.7 % (32.0-36.0); MONO % 9.9 % (0.0-8.0); NEUT % 63.8 % (16.0-70.0); PLATELET COUNT 300 TH/MM3 (150-450); RED BLOOD COUNT 3.43 MIL/MM3 (4.50-5.90); RED CELL DISTRIBUTION WIDTH 14.8 % (11.6-17.2); WHITE BLOOD COUNT 8.7 TH/MM3 (4.0-11.0)
[2016-10-10 14:24] LABS: ALKALINE PHOSPHATASE 96 U/L (45-117); ALT (GPT) 30 U/L (12-78); ANION GAP 9 MEQ/L (5-15); AST (GOT) 33 U/L (15-37); BICARBONATE 25.6 MEQ/L (21.0-32.0); BLOOD UREA NITROGEN 6 MG/DL (7-18); CHLORIDE 97 MEQ/L (98-107); GLOMERULAR FILTRATION RATE 106 ML/MIN (>89); POTASSIUM 3.4 MEQ/L (3.5-5.1); SODIUM (NA) 132 MEQ/L (136-145); TOTAL BILIRUBIN ADULT 0.3 MG/DL (0.2-1.0)
[2016-10-10] MEDS: ENOXAPARIN SODIUM 30 MG/0.3 ML SYRINGE SQ SCH (14:25)
[2016-10-10 16:00] VITALS: BP 158/87; PULSE 89; RESP 21; TEMP 98.6; O2SAT 99
[2016-10-10 20:00] VITALS: BP 153/81; PULSE 79; RESP 18; TEMP 96; O2SAT 97
[2016-10-10] MEDS: ATORVASTATIN 40 MG TAB PO SCH (21:04)
[2016-10-11] VITALS: BP 140/79; PULSE 79; RESP 20; TEMP 98.3; O2SAT 98
[2016-10-11] MEDS: HYDROmorphone HCL PF 1 MG/ML VIAL IV PRN ×5 (04:49→20:58)
[2016-10-11] MEDS: INSULIN ASPART SUPPLEMENTAL SCALE SQ SCH ×4 (07:00→21:00)
[2016-10-11 08:00] VITALS: BP 165/90; PULSE 85; RESP 16; TEMP 98.1; O2SAT 97
--- NOTE | 2016-10-11 08:13 | HHI.PR ---
Subjective Remarks Was noted agitated and very anxious yesterday says he had problems in family and could not get in touch with hios . Says he is much better today. Pain is controlled by current regimen. Will continue to taper down pain meds as tolerated. Patient denies fever or chills. No n/v/d/c. Objective Vitals Vital Signs Date Time Temp Pulse Resp B/P Pulse Ox O2 Delivery O2 Flow Rate FiO2 10/11/16 05:19 18 10/11/16 04:49 18 10/11/16 00:00 98.3 79 20 140/79 98 10/10/16 20:00 96.0 79 18 153/81 97 10/10/16 16:00 98.6 89 21 158/87 99 10/10/16 13:11 84 16 153/83 10/10/16 12:00 98.0 85 18 106/58 99 I/O 10/10/16 10/10/16 10/10/16 10/11/16 10/11/16 10/11/16 07:00 15:00 23:00 07:00 15:00 23:00 Intake Total 360 ml 2618 ml 760 ml 1030 ml Output Total 1500 ml 1000 ml 1800 ml 1500 ml Balance -1140 ml 1618 ml -1040 ml -470 ml Intake Oral 360 ml 580 ml 760 ml 780 ml IV Total 2038 ml 250 ml Output Urine Total 1500 ml 1000 ml 1800 ml 1500 ml # Bowel Movements 1 0 Result Diagram: 10/10/16 1300 10/10/16 1300 Imaging Last Impressions Chest X-Ray 09/25/16 1337 Signed Impressions: Service Date/Time: Sunday, September 25, 2016 13:49 - CONCLUSION: No acute cardiopulmonary process. Lungs are clear. Chencho Mckeon MD Foot X-Ray 09/25/16 0000 Signed Impressions: Service Date/Time: Sunday, September 25, 2016 13:52 - CONCLUSION: 1. Possible healing fracture of the third proximal phalanx. 2. Soft tissue swelling and multiple gas bubbles in the soft tissues which could indicate infection. No definite destructive changes identified. Harsh Aguirre MD Objective Remarks GENERAL: This is a well-nourished, well-developed patient, in no apparent distress. SKIN: No rashes, warm and dry HEAD: Atraumatic. Normocephalic. EYES: Pupils equal round and reactive. Extraocular motions intact. No scleral icterus. ENT: Nose without bleeding, or drainage, Airway patent. NECK: Trachea midline. Supple CARDIOVASCULAR: Regular rate and rhythm without murmurs, gallops, or rubs. RESPIRATORY: Fair air entry bilaterally. No wheezes, rales, or rhonchi. GASTROINTESTINAL: Abdomen soft, non-tender, nondistended. Positive bowel sounds MUSCULOSKELETAL: Left AKA , right BKA in gauze NEUROLOGICAL: Awake and alert. Moves all extremity. 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 -PAD status post left AKA 03/2016: Continue aspirin and Lopressor -Chronic anemia : Low iron, saturation, TIBC, ferritin is high for 61 most likely chronic disease -Hyponatremia with hypomagnesemia: Monitor and replace as needed, hyponatremia mostly due to alcohol abuse -Hyperglycemia mostly prediabetic : Accu-Chek and ISS, A1c 5.4, FBG 136 - 122- 139>> to fasting blood glucose of 126 diabetes mellitus per definition -Hypertension: Resume home meds, on metoprolol, add Vasotec as needed, Norvasc -Alcohol abuse: Counseled, folic acid thiamine, Ativan as needed -Penicillin allergy -DVT prophylaxis, on Lovenox Discharge Planning Plan to DC to rehab , cleared by surgery Discussed with the CM, difficult DC as patient doesn't have insurance. CM following. Mariana Sood MD October 11, 2016 08:13
[2016-10-11] MEDS: DOCUSATE SODIUM 100 MG CAP PO SCH ×2 (08:49→21:00)
[2016-10-11] MEDS: CALCIUM CARBONATE 500 MG CHEWABLE TAB CHEW SCH ×2 (08:50→20:58)
[2016-10-11] MEDS: METOPROLOL TARTRATE 25 MG TAB PO SCH ×2 (08:50→20:58)
[2016-10-11] MEDS: PANTOPRAZOLE SOD 40 MG DELAYED RELEASE TAB PO SCH (08:50)
[2016-10-11] MEDS: POTASSIUM CHLORIDE 25 MEQ EFFERVESCENT TAB PO SCH ×3 (08:50→21:00)
[2016-10-11] MEDS: MULTIVITAMIN TAB PO SCH (08:50)
[2016-10-11] MEDS: ASPIRIN 325 MG TAB PO SCH (08:50)
[2016-10-11] MEDS: LISINOPRIL 20 MG TAB PO SCH ×2 (08:50→20:58)
[2016-10-11 12:00] VITALS: BP 144/79; PULSE 82; RESP 17; TEMP 97.2; O2SAT 98
[2016-10-11] MEDS: ENOXAPARIN SODIUM 30 MG/0.3 ML SYRINGE SQ SCH (14:39)
[2016-10-11 16:00] VITALS: BP 138/70; PULSE 81; RESP 16; TEMP 96.4; O2SAT 96
[2016-10-11 20:31] VITALS: BP 141/83; PULSE 80; RESP 18; TEMP 97.4; O2SAT 98
[2016-10-11] MEDS: ATORVASTATIN 40 MG TAB PO SCH (20:58)
[2016-10-12] VITALS: BP 136/84; PULSE 82; RESP 18; TEMP 97.8; O2SAT 96
[2016-10-12] MEDS: HYDROmorphone HCL PF 1 MG/ML VIAL IV PRN ×4 (05:08→22:44)
[2016-10-12] MEDS: INSULIN ASPART SUPPLEMENTAL SCALE SQ SCH ×4 (05:46→21:00)
[2016-10-12 08:00] VITALS: BP 130/90; PULSE 82; RESP 19; TEMP 97.5; O2SAT 99
[2016-10-12] MEDS: POTASSIUM CHLORIDE 25 MEQ EFFERVESCENT TAB PO SCH ×2 (09:00→21:00)
[2016-10-12] MEDS: DOCUSATE SODIUM 100 MG CAP PO SCH ×2 (09:00→21:00)
[2016-10-12] MEDS: CALCIUM CARBONATE 500 MG CHEWABLE TAB CHEW SCH ×2 (09:00→21:00)
[2016-10-12] MEDS: PANTOPRAZOLE SOD 40 MG DELAYED RELEASE TAB PO SCH (09:13)
[2016-10-12] MEDS: LISINOPRIL 20 MG TAB PO SCH ×2 (09:13→21:29)
[2016-10-12] MEDS: MULTIVITAMIN TAB PO SCH (09:13)
[2016-10-12] MEDS: ASPIRIN 325 MG TAB PO SCH (09:14)
[2016-10-12] MEDS: METOPROLOL TARTRATE 25 MG TAB PO SCH ×2 (09:14→21:29)
[2016-10-12 12:00] VITALS: BP 127/75; PULSE 98; RESP 20; TEMP 97.8; O2SAT 97
--- NOTE | 2016-10-12 13:40 | HHI.PR ---
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 Patient says pain is improving and swelling at the stump is improving, says cover is falling off now. No fever or chills. Will continue tapering down pain meds. No n/v/d/c. Improving. Objective Vitals Vital Signs Date Time Temp Pulse Resp B/P Pulse Ox O2 Delivery O2 Flow Rate FiO2 10/12/16 12:00 97.8 98 20 127/75 97 10/12/16 08:00 97.5 82 19 130/90 99 10/12/16 00:00 97.8 82 18 136/84 96 10/11/16 20:31 97.4 80 18 141/83 98 10/11/16 16:00 96.4 81 16 138/70 96 I/O 10/11/16 10/11/16 10/11/16 10/12/16 10/12/16 10/12/16 07:00 15:00 23:00 07:00 15:00 23:00 Intake Total 1030 ml 200 ml 480 ml 480 ml 120 ml Output Total 1500 ml 800 ml 2000 ml 700 ml Balance -470 ml -600 ml -1520 ml -220 ml 120 ml Intake Oral 780 ml 200 ml 480 ml 480 ml 120 ml IV Total 250 ml Output Urine Total 1500 ml 800 ml 2000 ml 700 ml # Bowel Movements 0 0 0 Result Diagram: 10/10/16 1300 10/10/16 1300 Imaging Last Impressions Chest X-Ray 09/25/16 1337 Signed Impressions: Service Date/Time: Sunday, September 25, 2016 13:49 - CONCLUSION: No acute cardiopulmonary process. Lungs are clear. Chencho Mckeon MD Foot X-Ray 09/25/16 0000 Signed Impressions: Service Date/Time: Sunday, September 25, 2016 13:52 - CONCLUSION: 1. Possible healing fracture of the third proximal phalanx. 2. Soft tissue swelling and multiple gas bubbles in the soft tissues which could indicate infection. No definite destructive changes identified. Harsh Aguirre MD Objective Remarks GENERAL: This is a well-nourished, well-developed patient, in no apparent distress. SKIN: No rashes, warm and dry HEAD: Atraumatic. Normocephalic. EYES: Pupils equal round and reactive. Extraocular motions intact. No scleral icterus. ENT: Nose without bleeding, or drainage, Airway patent. NECK: Trachea midline. Supple CARDIOVASCULAR: Regular rate and rhythm without murmurs, gallops, or rubs. RESPIRATORY: Fair air entry bilaterally. No wheezes, rales, or rhonchi. GASTROINTESTINAL: Abdomen soft, non-tender, nondistended. Positive bowel sounds MUSCULOSKELETAL: Left AKA , s/p right BKA , healing well. No erythema or edema. NEUROLOGICAL: Awake and alert. Moves all extremity. 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 -PAD status post left AKA 03/2016: Continue aspirin and Lopressor -Chronic anemia : Low iron, saturation, TIBC, ferritin is high for 61 most likely chronic disease -Hyponatremia with hypomagnesemia: Monitor and replace as needed, hyponatremia mostly due to alcohol abuse -Hyperglycemia mostly prediabetic : Accu-Chek and ISS, A1c 5.4, FBG 136 - 122- 139>> to fasting blood glucose of 126 diabetes mellitus per definition -Hypertension: Resume home meds, on metoprolol, add Vasotec as needed, Norvasc -Alcohol abuse: Counseled, folic acid thiamine, Ativan as needed -Penicillin allergy -DVT prophylaxis, on Lovenox Discharge Planning Plan to DC to rehab , cleared by surgery Discussed with the CM, difficult DC as patient doesn't have insurance. CM following. Discussed with the patient, nurse. Mariana Sood MD October 12, 2016 13:40
[2016-10-12 16:00] VITALS: BP 143/86; PULSE 81; RESP 19; TEMP 96.9; O2SAT 100
[2016-10-12] MEDS: ENOXAPARIN SODIUM 30 MG/0.3 ML SYRINGE SQ SCH (17:41)
[2016-10-12] MEDS ORDERED: [UNRECOGNIZED DRUG - OTHER] EACH EYE PRN (17:45)
[2016-10-12] MEDS ORDERED: EYE WASH EACH EYE PRN (17:45)
[2016-10-12 20:00] VITALS: BP 113/73; PULSE 85; RESP 17; TEMP 96.7; O2SAT 98
[2016-10-12] MEDS: ATORVASTATIN 40 MG TAB PO SCH (21:29)
[2016-10-13] VITALS: BP 110/70; PULSE 71; RESP 17; TEMP 96; O2SAT 98
[2016-10-13] MEDS: HYDROmorphone HCL PF 1 MG/ML VIAL IV PRN (05:29)
[2016-10-13] MEDS: INSULIN ASPART SUPPLEMENTAL SCALE SQ SCH ×4 (06:28→21:00)
[2016-10-13 08:00] VITALS: BP 147/90; PULSE 83; RESP 19; TEMP 97.8; O2SAT 98
[2016-10-13] MEDS: POTASSIUM CHLORIDE 25 MEQ EFFERVESCENT TAB PO SCH ×2 (08:30→21:00)
[2016-10-13] MEDS: DOCUSATE SODIUM 100 MG CAP PO SCH ×2 (08:30→21:00)
[2016-10-13] MEDS: LISINOPRIL 20 MG TAB PO SCH ×2 (08:30→20:59)
[2016-10-13] MEDS: ASPIRIN 325 MG TAB PO SCH (08:30)
[2016-10-13] MEDS: METOPROLOL TARTRATE 25 MG TAB PO SCH ×2 (08:30→20:59)
[2016-10-13] MEDS: CALCIUM CARBONATE 500 MG CHEWABLE TAB CHEW SCH ×2 (08:30→21:00)
[2016-10-13] MEDS: MULTIVITAMIN TAB PO SCH (08:30)
[2016-10-13] MEDS: PANTOPRAZOLE SOD 40 MG DELAYED RELEASE TAB PO SCH (08:30)
[2016-10-13 12:00] VITALS: BP_SYST 101; PULSE 75; RESP 18; TEMP 96.9; O2SAT 95
--- NOTE | 2016-10-13 12:10 | HHI.PR ---
Subjective Remarks Patient at the margin of the bed. Says he did have 4 episodes of diarrhea yesterday, no blood in it. He also complaints of gas. There is no abdominal pain associated. No fevers or chills. Less anxious. Pain is controlled by meds. Denies any chest pain, sob, n/v/d/c. Objective Vitals Vital Signs Date Time Temp Pulse Resp B/P Pulse Ox O2 Delivery O2 Flow Rate FiO2 10/13/16 08:05 18 10/13/16 08:00 97.8 83 19 147/90 98 10/13/16 05:50 20 10/13/16 00:00 96.0 71 17 110/70 98 10/12/16 20:00 96.7 85 17 113/73 98 10/12/16 16:00 96.9 81 19 143/86 100 I/O 10/12/16 10/12/16 10/12/16 10/13/16 10/13/16 10/13/16 07:00 15:00 23:00 07:00 15:00 23:00 Intake Total 480 ml 1120 ml 480 ml 240 ml 120 ml Output Total 700 ml 800 ml 300 ml 650 ml Balance -220 ml 320 ml 180 ml -410 ml 120 ml Intake Oral 480 ml 1120 ml 480 ml 240 ml 120 ml Output Urine Total 700 ml 800 ml 300 ml 650 ml # Bowel Movements 0 0 3 3 Result Diagram: 10/10/16 1300 10/10/16 1300 Imaging Last Impressions Chest X-Ray 09/25/16 1337 Signed Impressions: Service Date/Time: Sunday, September 25, 2016 13:49 - CONCLUSION: No acute cardiopulmonary process. Lungs are clear. Chencho Mckeno MD Foot X-Ray 09/25/16 0000 Signed Impressions: Service Date/Time: Sunday, September 25, 2016 13:52 - CONCLUSION: 1. Possible healing fracture of the third proximal phalanx. 2. Soft tissue swelling and multiple gas bubbles in the soft tissues which could indicate infection. No definite destructive changes identified. Harsh Aguirre MD Objective Remarks GENERAL: This is a well-nourished, well-developed patient, in no apparent distress. SKIN: No rashes, warm and dry HEAD: Atraumatic. Normocephalic. EYES: Pupils equal round and reactive. Extraocular motions intact. No scleral icterus. ENT: Nose without bleeding, or drainage, Airway patent. NECK: Trachea midline. Supple CARDIOVASCULAR: Regular rate and rhythm without murmurs, gallops, or rubs. RESPIRATORY: Fair air entry bilaterally. No wheezes, rales, or rhonchi. GASTROINTESTINAL: Abdomen soft, non-tender, nondistended. Positive bowel sounds MUSCULOSKELETAL: Left AKA , s/p right BKA , healing well. No erythema or edema. NEUROLOGICAL: Awake and alert. Moves all extremity. 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 Pain is controlled by PO meds. -PAD status post left AKA 03/2016: Continue aspirin and Lopressor -Diarrhea: Check for C diff. Add probiotic. -Chronic anemia : Low iron, saturation, TIBC, ferritin is high for 61 most likely chronic disease -Hyponatremia with hypomagnesemia: Monitor and replace as needed, hyponatremia mostly due to alcohol abuse -Hyperglycemia mostly prediabetic : Accu-Chek and ISS, A1c 5.4, FBG 136 - 122- 139>> to fasting blood glucose of 126 diabetes mellitus per definition -Hypertension: Resume home meds, on metoprolol, add Vasotec as needed, Norvasc -Alcohol abuse: Counseled, folic acid thiamine, Ativan as needed -Penicillin allergy -DVT prophylaxis, on Lovenox Discharge Planning Plan to DC to rehab , cleared by surgery Discussed with the CM, difficult DC as patient doesn't have insurance. CM following. Discussed with the patient, nurse. Plan to transfer to hospital, discussed with Dr Rimpel, accepted patient to PO Mariana Sood MD October 13, 2016 12:10
[2016-10-13] MEDS ORDERED: LORazepam 0.5 MG TAB PO PRN (12:15)
[2016-10-13] MEDS ORDERED: SIMETHICONE 80 MG CHEWABLE TAB CHEW PRN (12:15)
[2016-10-13] MEDS ORDERED: CALCIUM CARBONATE 500 MG CHEWABLE TAB CHEW ONE (13:00)
[2016-10-13] MEDS: LACTOBACILLUS ACIDOPHILUS TAB PO SCH ×2 (13:48→21:00)
[2016-10-13] MEDS: ENOXAPARIN SODIUM 30 MG/0.3 ML SYRINGE SQ SCH (15:24)
[2016-10-13 16:00] VITALS: BP 131/80; PULSE 81; RESP 17; TEMP 97.8; O2SAT 97
[2016-10-13 20:00] VITALS: BP 150/92; PULSE 83; RESP 20; TEMP 98.4; O2SAT 95
[2016-10-13] MEDS: ATORVASTATIN 40 MG TAB PO SCH (20:59)
[2016-10-14] MEDS: INSULIN ASPART SUPPLEMENTAL SCALE SQ SCH ×2 (06:20→11:00)
[2016-10-14 06:22] LABS: AUTOMATED NEUTROPHIL # 5.8 TH/MM3 (1.8-7.7); BASOPHIL % 0.4 % (0.0-2.0); EOSINOPHIL # 0.5 TH/MM3 (0-0.4); HEMATOCRIT 27.2 % (39.0-51.0); HEMO FLAGS DIFF FINAL; MEAN CELL VOLUME 81.4 FL (80.0-100.0); MEAN CORPUSCULAR HEMOGLOBIN 27.2 PG (27.0-34.0); MEAN CORPUSCULAR HGB CONC 33.4 % (32.0-36.0); MONO % 11.2 % (0.0-8.0); NEUT % 62.4 % (16.0-70.0); PLATELET COUNT 342 TH/MM3 (150-450); RED BLOOD COUNT 3.34 MIL/MM3 (4.50-5.90); RED CELL DISTRIBUTION WIDTH 13.9 % (11.6-17.2); WHITE BLOOD COUNT 9.3 TH/MM3 (4.0-11.0)
[2016-10-14 06:33] LABS: POTASSIUM 3.9 MEQ/L (3.5-5.1)
[2016-10-14 06:39] LABS: BICARBONATE 31.1 MEQ/L (21.0-32.0); MAGNESIUM 1.4 MG/DL (1.5-2.5)
[2016-10-14 08:00] VITALS: BP 143/89; PULSE 81; RESP 20; TEMP 97; O2SAT 99
[2016-10-14] MEDS: DOCUSATE SODIUM 100 MG CAP PO SCH (09:00)
[2016-10-14] MEDS: PANTOPRAZOLE SOD 40 MG DELAYED RELEASE TAB PO SCH (09:00)
[2016-10-14] MEDS: POTASSIUM CHLORIDE 25 MEQ EFFERVESCENT TAB PO SCH ×2 (09:00→20:33)
[2016-10-14] MEDS: CALCIUM CARBONATE 500 MG CHEWABLE TAB CHEW SCH ×2 (09:00→20:32)
[2016-10-14] MEDS: METOPROLOL TARTRATE 25 MG TAB PO SCH (09:16)
[2016-10-14] MEDS: MULTIVITAMIN TAB PO SCH (09:16)
[2016-10-14] MEDS: ASPIRIN 325 MG TAB PO SCH (09:17)
[2016-10-14] MEDS: LACTOBACILLUS ACIDOPHILUS TAB PO SCH ×2 (09:17→20:32)
[2016-10-14] MEDS: LISINOPRIL 20 MG TAB PO SCH ×2 (09:18→20:34)
[2016-10-14] MEDS: ENOXAPARIN SODIUM 30 MG/0.3 ML SYRINGE SQ SCH (15:00)
[2016-10-14] MEDS ORDERED: WHEEMIS3 (15:11)
[2016-10-14] MEDS ORDERED: [UNRECOGNIZED DRUG - CODE] (15:11)
[2016-10-14] MEDS ORDERED: TRANMIS2 (15:11)
[2016-10-14] MEDS ORDERED: HOSP BED1 (15:11)
--- NOTE | 2016-10-14 15:37 | HHI.PR ---
Subjective Remarks 51 year-old male who originally presented to the hospital on 09/25/16. At that time patient presented with right foot infection in hypotension. At that time patient was a poor historian and he underwent left [id number] amputation 2015. Over the last week he has had necrosis with blackening of his toes of the right foot, malodorous right foot with discharge. Vascular surgeon evaluated patient in the emergency department and with patient signs of sepsis, patient was expedited to the OR for emergent amputation. Patient did undergo right ankle disarticulation on 09/25/16. Patient went back to surgery on 10/02/16 where he had a right below the knee amputation performed because of continued septic leg. Patient was admitted to the ICU in which critical care consult was performed by Dr. Morales due to severe sepsis. Patient was started on empirical antibiotics include Flagyl, Cipro, vancomycin. Cultures were performed which showed Proteus vulgaris and staph aureus with sensitivity to vancomycin, Levaquin. Patient continued antibiotic until completion with Flagyl, Cipro, vancomycin. Patient was transferred to medical service on 09/26/16. Patient was continued care in the hospital with pulsatile care with vascular surgery. At this time after surgery has signed off as of 10/10/16. They recommending outpatient follow-up and rehabilitation. Patient is still undergoing PT/OT evaluations. According to therapy services physical therapy states that the patient is functioning well. He is using a wheelchair for over 500 feet. He is transferring with standby assist. Recommending he can go home without physical therapy if drop arm commode, wheelchair, sliding board, hospital bed can be provided. Reviewed occupational therapy's note which patient was seen for self care and states that he was doing well. Records indicate that he is doing standby supervision. At the present time the patient states that is doing well. Does have a home go to. Has been functioning at home with wheelchair already. Patient is very eager to go home. We'll get case management involved to try to supply the patient with his DME needs and plan discharge accordingly. Objective Vitals Vital Signs Date Time Temp Pulse Resp B/P Pulse Ox O2 Delivery O2 Flow Rate FiO2 10/14/16 10:19 18 10/14/16 08:00 97.0 81 20 143/89 99 10/13/16 20:00 98.4 83 20 150/92 95 10/13/16 16:00 97.8 81 17 131/80 97 I/O 10/13/16 10/13/16 10/13/16 10/14/16 10/14/16 10/14/16 07:00 15:00 23:00 07:00 15:00 23:00 Intake Total 240 ml 1080 ml 360 ml 240 ml 960 ml Output Total 650 ml 800 ml 575 ml 1800 ml Balance -410 ml 280 ml 360 ml -335 ml -840 ml Intake Oral 240 ml 1080 ml 360 ml 240 ml 960 ml Output Urine Total 650 ml 800 ml 575 ml 1800 ml # Voids 2 # Bowel Movements 3 1 2 1 0 Result Diagram: 10/14/1659910/14/16599 Objective Remarks GENERAL: Well-developed, well-nourished, in no acute distress. alert and orientated HEENT: Head is normocephalic without any lesions or masses noted. Facial features are symmetric. Eyes: Extraocular muscles are intact. Conjunctivae were clear. NECK: Supple without any masses. Trachea midline no deviation. No JVD, CARDIAC: Regular rhythm, regular rate. S1/S2 are heard. No murmurs gallops or rubs. LUNGS: Clear to auscultation bilaterally. No wheeze, rhonchi or rales. No use of accessory muscles on inspiration or expiration. ABDOMEN: Soft, nontender. Nondistended. Bowel sounds heard in all 4 quadrants. No organomegaly or masses. Negative rebound, negative guarding EXTREMITIES: No edema, pulses are equal bilaterally. No cyanosis or clubbing. Patient has left [id number] amputation NEUROLOGY: Mood and affect appear appropriate. Cranial nerves II through XII grossly intact. Moving all extremities, speech is clear RIGHT LOWER EXTREMITY: Postsurgical will does appear to be without any infection. [place] are still in place. There are purple edges of the wound. 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 Recommended outpatient follow-up We'll have nursing staff contact with her surgeon to find out when nadeen can be removed Physical therapy following the patient and indicates he is doing well he can go home without physical therapy Occupational therapy indicates patient is doing self-care with standby supervision. DME equipment recommended by therapy to include hospital bed, wheelchair with removable arms, transfer board, commode with drop arms Case management consulted for DME equipment Pain control Oxycodone 5 every 4 hours as needed for pain 15 Oxycodone 10 every 4 hours as needed for pain 610 Severe sepsis with lactic acidosis, leukocytosis, lower extremity infection: Resolved Patient with wound infection of staph aureus and Proteus vulgaris Patient completed treatment with vancomycin, Cipro, Flagyl Peripheral arterial disease status post left [id number] amputation Continue aspirin, statin Diarrhea illness C. difficile culture has been requested Probiotic has been added Anemia, chronic, stable Low iron, TIBC, percent saturation. Ferritin 461 Likely anemia of chronic disease Electrolyte abnormalities with Hyponatremia, hypomagnesemia, hypokalemia, hypocalcemia Continue monitor and replace as needed Hyperglycemia, likely prediabetic Hemoglobin A1c 5.4 However patient had multiple fasting blood glucoses greater than 126 Patient we counseled on lifestyle modifications Patient on Accu-Cheks, hours only received one unit insulin in the last 4 days Start diabetic diet Hypertension: Labile with mostly elevation Amlodipine 10 mg daily Lisinopril 20 mg twice daily Metoprolol 25 mg twice daily, increase to metoprolol 50 mg twice daily Alcohol abuse: Patient counseled on cessation Discontinue folic acid and thiamine Patient outside withdrawal window, will discontinue Ativan DVT prophylaxis, Lovenox Discharge Planning Consult case management for discharge planning. Arrange DME equipment so patient be discharged home once equipment can be provided to the patient Abdifatah Barillas October 14, 2016 15:37
[2016-10-14 20:00] VITALS: BP 138/83; PULSE 84; RESP 16; TEMP 97.4; O2SAT 99
[2016-10-14] MEDS: ATORVASTATIN 40 MG TAB PO SCH (20:34)
[2016-10-14] MEDS: METOPROLOL TARTRATE 50 MG TAB PO SCH (20:35)
[2016-10-15 04:56] LABS: POTASSIUM 3.8 MEQ/L (3.5-5.1)
[2016-10-15 04:58] LABS: AUTOMATED NEUTROPHIL # 5.6 TH/MM3 (1.8-7.7); BASOPHIL % 0.4 % (0.0-2.0); EOSINOPHIL # 0.6 TH/MM3 (0-0.4); EOSINOPHIL % 5.5 % (0.0-4.0); HEMATOCRIT 26.1 % (39.0-51.0); HEMO FLAGS DIFF FINAL; LYMPH % 28.9 % (9.0-44.0); MEAN CELL VOLUME 82.3 FL (80.0-100.0); MEAN CORPUSCULAR HEMOGLOBIN 27.1 PG (27.0-34.0); MONO % 11.9 % (0.0-8.0); NEUT % 53.3 % (16.0-70.0); PLATELET COUNT 328 TH/MM3 (150-450); RED BLOOD COUNT 3.17 MIL/MM3 (4.50-5.90); RED CELL DISTRIBUTION WIDTH 14.3 % (11.6-17.2); WHITE BLOOD COUNT 10.4 TH/MM3 (4.0-11.0)
[2016-10-15 04:59] LABS: BICARBONATE 28.4 MEQ/L (21.0-32.0); MAGNESIUM 1.5 MG/DL (1.5-2.5)
[2016-10-15] MEDS: POTASSIUM CHLORIDE 25 MEQ EFFERVESCENT TAB PO SCH ×2 (09:00→20:50)
--- NOTE | 2016-10-15 09:10 | HHI.PR ---
Subjective Remarks Patient seen and examined today in follow-up on right mhyyz-[id number]-[id number] amputation. Patient denies any new complaints he does have multiple questions. He is asking if he can get more food to eat while he is here. Wants to know if he is going to start the stump watch dial stoner at this time. Nursing staff did contact plastic surgery who said that the nadeen can stay in until they see him in outpatient setting. Objective Vitals Vital Signs Date Time Temp Pulse Resp B/P Pulse Ox O2 Delivery O2 Flow Rate FiO2 10/15/16 01:51 16 10/14/16 21:42 16 10/14/16 20:00 97.4 84 16 138/83 99 I/O 10/14/16 10/14/16 10/14/16 10/15/16 10/15/16 10/15/16 07:00 15:00 23:00 07:00 15:00 23:00 Intake Total 240 ml 960 ml 700 ml 480 ml Output Total 575 ml 1800 ml 550 ml Balance -335 ml -840 ml 700 ml -70 ml Intake Oral 240 ml 960 ml 700 ml 480 ml Output Urine Total 575 ml 1800 ml 550 ml # Voids 4 # Bowel Movements 1 0 5 1 Result Diagram: 10/15/16 0435 10/15/16 0435 Objective Remarks GENERAL: Well-developed, well-nourished, in no acute distress. alert and orientated HEENT: Head is normocephalic without any lesions or masses noted. Facial features are symmetric. Eyes: Extraocular muscles are intact. Conjunctivae were clear. NECK: Supple without any masses. Trachea midline no deviation. No JVD, CARDIAC: Regular rhythm, regular rate. S1/S2 are heard. No murmurs gallops or rubs. LUNGS: Clear to auscultation bilaterally. No wheeze, rhonchi or rales. No use of accessory muscles on inspiration or expiration. ABDOMEN: Soft, nontender. Nondistended. Bowel sounds heard in all 4 quadrants. No organomegaly or masses. Negative rebound, negative guarding EXTREMITIES: No edema, pulses are equal bilaterally. No cyanosis or clubbing. Patient has left sjvzp-fcm-tzpb amputation NEUROLOGY: Mood and affect appear appropriate. Cranial nerves II through XII grossly intact. Moving all extremities, speech is clear RIGHT LOWER EXTREMITY: Postsurgical will does appear to be without any infection. Dysart are still in place. There are purple edges of the wound. 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 Recommended outpatient follow-up We'll have nursing staff contact with her surgeon to find out when nadeen can be removed Physical therapy following the patient and indicates he is doing well he can go home without physical therapy Occupational therapy indicates patient is doing self-care with standby supervision. DME equipment recommended by therapy to include hospital bed, wheelchair with removable arms, transfer board, commode with drop arms Case management consulted for DME equipment Pain control Oxycodone 5 every 4 hours as needed for pain 15 Oxycodone 10 every 4 hours as needed for pain 610 Severe sepsis with lactic acidosis, leukocytosis, lower extremity infection: Resolved Patient with wound infection of staph aureus and Proteus vulgaris Patient completed treatment with vancomycin, Cipro, Flagyl Peripheral arterial disease status post left xwxzk-nbp-rlol amputation Continue aspirin, statin Diarrhea illness C. difficile culture has been requested Probiotic has been added Anemia, chronic, stable Low iron, TIBC, percent saturation. Ferritin 461 Likely anemia of chronic disease Electrolyte abnormalities with Hyponatremia, hypomagnesemia, hypokalemia, hypocalcemia Continue monitor and replace as needed Hyperglycemia, likely prediabetic Hemoglobin A1c 5.4 However patient had multiple fasting blood glucoses greater than 126 Patient counseled on lifestyle modifications Continue diabetic diet Discontinued Accu-Cheks and sliding scale insulin Hypertension: Labile with mostly elevation Amlodipine 10 mg daily Lisinopril 20 mg twice daily Metoprolol 50 mg twice daily Alcohol abuse: Patient counseled on cessation Discontinue folic acid and thiamine Patient outside withdrawal window, discontinued Ativan DVT prophylaxis, Lovenox Discharge Planning Consult case management for discharge planning. Arrange DME equipment so patient be discharged home once equipment can be provided to the patient Abdifatah Barillas October 15, 2016 09:10
[2016-10-15 09:48] VITALS: BP 153/92; PULSE 82; RESP 16; TEMP 96.1; O2SAT 97
[2016-10-15] MEDS: LACTOBACILLUS ACIDOPHILUS TAB PO SCH ×2 (09:56→20:48)
[2016-10-15] MEDS: CALCIUM CARBONATE 500 MG CHEWABLE TAB CHEW SCH ×2 (09:56→20:50)
[2016-10-15] MEDS: PANTOPRAZOLE SOD 40 MG DELAYED RELEASE TAB PO SCH (09:56)
[2016-10-15] MEDS: METOPROLOL TARTRATE 50 MG TAB PO SCH ×2 (09:56→20:50)
[2016-10-15] MEDS: MULTIVITAMIN TAB PO SCH (09:56)
[2016-10-15] MEDS: ASPIRIN 325 MG TAB PO SCH (09:56)
[2016-10-15] MEDS: LISINOPRIL 20 MG TAB PO SCH ×2 (09:57→20:48)
[2016-10-15] MEDS: ENOXAPARIN SODIUM 30 MG/0.3 ML SYRINGE SQ SCH (15:00)
[2016-10-15 20:00] VITALS: BP 149/98; PULSE 88; RESP 20; TEMP 97; O2SAT 95
[2016-10-15] MEDS: ATORVASTATIN 40 MG TAB PO SCH (20:48)
[2016-10-16 08:59] VITALS: BP 172/104; PULSE 84; RESP 18; TEMP 97.2; O2SAT 97
[2016-10-16] MEDS: LACTOBACILLUS ACIDOPHILUS TAB PO SCH (08:59)
[2016-10-16] MEDS: LISINOPRIL 20 MG TAB PO SCH (08:59)
[2016-10-16] MEDS: METOPROLOL TARTRATE 50 MG TAB PO SCH (09:00)
[2016-10-16] MEDS: POTASSIUM CHLORIDE 25 MEQ EFFERVESCENT TAB PO SCH (09:00)
[2016-10-16] MEDS: ASPIRIN 325 MG TAB PO SCH (09:00)
[2016-10-16] MEDS: MULTIVITAMIN TAB PO SCH (09:00)
[2016-10-16] MEDS: PANTOPRAZOLE SOD 40 MG DELAYED RELEASE TAB PO SCH (09:00)
[2016-10-16] MEDS: CALCIUM CARBONATE 500 MG CHEWABLE TAB CHEW SCH (09:00)
[2016-10-16] MEDS: ENOXAPARIN SODIUM 30 MG/0.3 ML SYRINGE SQ SCH (09:03)
--- NOTE | 2016-10-16 13:17 | HHI.DS ---
Discharge Summary Admission Date Sep 25, 2016 at 14:59 Discharge Date: October 16, 2016 Admitting Diagnosis sepsis, gangrene (1) Right BKA infection ICD Code: T87.43 (2) Gangrene ICD Code: I96 (3) Septic shock ICD Code: A41.9 (4) Diabetes ICD Code: E11.9 Procedures 09/25/16: Right ankle disarticulation 10/02/16: Open right below the knee amputation Brief History - From Admission Per vascular surgery consultation "51yo male w/ no known medical problems who has a R foot wound that he notes started a week ago. He has drainage and now chills. He has a L AKA that was done in March for what he notes is a brown recluse spider bite." CBC/BMP: 10/15/16 0435 10/15/16 0435 Significant Findings Laboratory Tests Test 10/14/16 10/15/16 06:00 04:35 Red Blood Count 3.34 MIL/MM3 3.17 MIL/MM3 (4.50-5.90) (4.50-5.90) Hemoglobin 9.1 GM/DL 8.6 GM/DL (13.0-17.0) (13.0-17.0) Hematocrit 27.2 % 26.1 % (39.0-51.0) (39.0-51.0) Monocytes (%) (Auto) 11.2 % 11.9 % (0.0-8.0) (0.0-8.0) Eosinophils (%) (Auto) 5.0 % (0.0-4.0) 5.5 % (0.0-4.0) Monocytes # (Auto) 1.0 TH/MM3 1.2 TH/MM3 (0-0.9) (0-0.9) Eosinophils # (Auto) 0.5 TH/MM3 0.6 TH/MM3 (0-0.4) (0-0.4) Sodium Level 135 MEQ/L 133 MEQ/L (136-145) (136-145) Random Glucose 131 MG/DL 118 MG/DL (74-106) (74-106) Calcium Level 8.3 MG/DL 8.1 MG/DL (8.5-10.1) (8.5-10.1) Magnesium Level 1.4 MG/DL (1.5-2.5) Chloride Level 97 MEQ/L (98-107) Imaging Last Impressions Chest X-Ray 09/25/16 1337 Signed Impressions: Service Date/Time: Sunday, September 25, 2016 13:49 - CONCLUSION: No acute cardiopulmonary process. Lungs are clear. Chencho Mckeon MD Foot X-Ray 09/25/16 0000 Signed Impressions: Service Date/Time: Sunday, September 25, 2016 13:52 - CONCLUSION: 1. Possible healing fracture of the third proximal phalanx. 2. Soft tissue swelling and multiple gas bubbles in the soft tissues which could indicate infection. No definite destructive changes identified. Harsh Aguirre MD PE at Discharge GENERAL: Well-developed, well-nourished, in no acute distress. alert and orientated HEENT: Head is normocephalic without any lesions or masses noted. Facial features are symmetric. Eyes: Extraocular muscles are intact. Conjunctivae were clear. NECK: Supple without any masses. Trachea midline no deviation. No JVD, CARDIAC: Regular rhythm, regular rate. S1/S2 are heard. No murmurs gallops or rubs. LUNGS: Clear to auscultation bilaterally. No wheeze, rhonchi or rales. No use of accessory muscles on inspiration or expiration. ABDOMEN: Soft, nontender. Nondistended. Bowel sounds heard in all 4 quadrants. No organomegaly or masses. Negative rebound, negative guarding EXTREMITIES: No edema, pulses are equal bilaterally. No cyanosis or clubbing. Patient has left ydami-exa-cbpp amputation NEUROLOGY: Mood and affect appear appropriate. Cranial nerves II through XII grossly intact. Moving all extremities, speech is clear RIGHT LOWER EXTREMITY: Postsurgical will does appear to be without any infection. Chi are still in place. There are purple edges of the wound. Hospital Course 51 year-old male who originally presented to the hospital on 09/25/16. At that time patient presented with right foot infection in hypotension. At that time patient was a poor historian and he underwent left qrdsg-nys-qqnh amputation 2015. Over the last week he has had necrosis with blackening of his toes of the right foot, malodorous right foot with discharge. Vascular surgeon evaluated patient in the emergency department and with patient signs of sepsis, patient was expedited to the OR for emergent amputation. Patient did undergo right ankle disarticulation on 09/25/16. Patient went back to surgery on 10/02/16 where he had a right below the knee amputation performed because of continued septic leg. Patient was admitted to the ICU in which critical care consult was performed by Dr. Morales due to severe sepsis. Patient was started on empirical antibiotics include Flagyl, Cipro, vancomycin. Cultures were performed which showed Proteus vulgaris and staph aureus with sensitivity to vancomycin, Levaquin. Patient continued antibiotic until completion with Flagyl, Cipro, vancomycin. Patient was transferred to medical service on 09/26/16. Patient was continued care in the hospital with pulsatile care with vascular surgery. At this time after surgery has signed off as of 10/10/16. They recommending outpatient follow-up and rehabilitation. Patient is still undergoing PT/OT evaluations. According to therapy services physical therapy states that the patient is functioning well. He is using a wheelchair for over 500 feet. He is transferring with standby assist. Recommending he can go home without physical therapy if drop arm commode, wheelchair, sliding board, hospital bed can be provided. Reviewed occupational therapy's note which patient was seen for self care and states that he was doing well. Records indicate that he is doing standby supervision. At the present time the patient states that is doing well. Does have a home go to. Has been functioning at home with wheelchair already. Patient is very eager to go home. case management was involved to try to supply the patient with his DME needs and plan discharge accordingly. According to nursing staff today the patient spoke with case management about DME equipment and apparently nursing staff indicates that the patient wasn't too pleased that the amount of time and was going to take to get the equipment for him. So the patient left AGAINST MEDICAL ADVICE. Pt Condition on Discharge: Guarded Discharge Disposition: Discharge Home Discharge Time: <= 30 minutes Abdifatah Barillas October 16, 2016 13:17
[2016-10-17] MEDS ORDERED: HYDR-3533 PO (15:30)
[2016-10-17] MEDS ORDERED: CEPH-460 PO (15:30)
== END 2016-10-16 10:33 | disposition left against medical advice (07) | DRG 854 ==
LOC: HOR 12:44 → HPAC 12:44 → NEDA 14:59 → UNDOADMIN 16:03 → HPAC 16:03 → HOR 17:04 → HPAC 21:24 → N07B 21:24 → PH5A 10-13 18:35
PROVIDERS: ADMIT Family Medicine; ATTEND Family Medicine
PROC: 0Y6M0Z0 Detachment at Right Foot, Complete, Open Approach (ICD-10-PCS; 2016-09-25)
PROC: 0Y6H0Z1 Detachment at Right Lower Leg, High, Open Approach (ICD-10-PCS; principal; 2016-10-02 10:17)
PROC: 30233N1 Transfusion of Nonautologous Red Blood Cells into Peripheral Vein, Percutaneous Approach (ICD-10-PCS; 2016-10-03)
DX: A41.01 Sepsis due to Methicillin susceptible Staphylococcus aureus (principal); E87.2 Acidosis; I70.261 Atherosclerosis of native arteries of extremities with gangrene, right leg; E87.1 Hypo-osmolality and hyponatremia; E11.52 Type 2 diabetes mellitus with diabetic peripheral angiopathy with gangrene; R65.20 Severe sepsis without septic shock; E11.65 Type 2 diabetes mellitus with hyperglycemia; A41.59 Other Gram-negative sepsis; D63.8 Anemia in other chronic diseases classified elsewhere; K21.9 Gastro-esophageal reflux disease without esophagitis; I10 Essential (primary) hypertension; E83.42 Hypomagnesemia; R19.7 Diarrhea, unspecified; E83.51 Hypocalcemia; E87.6 Hypokalemia; F10.10 Alcohol abuse, uncomplicated; Z87.891 Personal history of nicotine dependence; Z88.0 Allergy status to penicillin; Z89.612 Acquired absence of left leg above knee
CPT/HCPCS: 36430; 71010; 73630; 80048; 80053; 80061; 80076; 80202; 82533; 82607; 82728; 82948; 83036; 83540; 83550; 83605; 83735; 83930; 84100; 84132; 84155; 84443; 85014; 85018; 85025; 85027; 85610; 86403; 86850; 86900; 86901; 86920; 87015; 87040; 87070; 87077; 87102; 87116; 87147; 87186; 87205; 87206; 88307; 88311; 93005; 94150; 96374; 96375; J0744; J1170; J1644; J1650; J1815; J2060; J2250; J2270; J2370; J2405; J2710; J3010; J3370; J3475; J7030; J7042; J7050; J7120; P9016

== ENCOUNTER 2016-10-17 13:00 | Emergency (ER) | payer OTHER, MEDICAID ==
[~2016-10-17] VITALS: Ht 185.4 cm; Wt 100.0 kg
[~2016-10-17 13:00] MED LIST changes: +AMLO10 PO; +ASPI325T PO; +ATOR40TA16 PO; +CALC500C16 CHEW; +CIPR500T2 PO; +HOSP BED1; -LACTATED RINGER'S 1000 ML INJ 1,000 ML IV ONE; +LISI-515 PO; +METO25TA3 PO; +METR-1 PO; -NEOSTIGMINE 3 MG/3 ML SYR IV ONE; +NORC5TAB PO; -ONDANSETRON HCL 4 MG/2 ML VIAL IV PUSH ONE; +PANT40TA3 PO; -PHENYLEPH/NS 1000 MCG/10 ML SYR IV ONE; -PROPOFOL 200 MG/20 ML AMP IV ONE; +TRANMIS2; +WHEEMIS3; +[UNRECOGNIZED DRUG - CODE]
[2016-10-17 13:15] VITALS: BP 134/84; PULSE 65; RESP 17; TEMP 97.8; O2SAT 98
[2016-10-17] MEDS ORDERED: ACETAMINOPHEN/HYDROcodone 325 MG/5 MG TAB PO ONE (14:15)
--- NOTE | 2016-10-17 14:27 | PD ---
HPI Chief Complaint: Injury Time Seen by Provider: 13:38 Travel History International Travel<30 days: No Contact w/Intl Traveler<30days: No Traveled to known affect area: No History of Present Illness HPI Is a 51-year-old man who left the hospital yesterday following a prolonged hospitalization for gangrene and sepsis of his right lower extremity. He had a previous left lower extremity amputation. During his hospitalization he had an ankle disarticulation on September 26, followed by below the knee amputation on October 03. This is a by Dr. Rowley. He was in the hospital for prolonged time following that, and left the hospital yesterday. Notes say that he was disgruntled left AMA. He states that he was forced out. He states in the hospital he was doing well. He has some of the equipment that he needs at home including his wheelchair, but is not been set up with the other equipment. He states he fell twice on his stump yesterday and has been having worsening pain redness and swelling as well as some drainage from the stump site. History Past Medical History Narrative Medical Diabetes Tetanus Vaccination: Unknown Social History Alcohol Use: No Tobacco Use: No Allergies-Medications (Allergen,Severity, Reaction): Coded Allergies: Penicillin (Verified Allergy, Unknown, 10/17/16) Reported Meds & Prescriptions Reported Meds & Active Scripts Active [place] (Hydrocodone-Acetaminophen) 5-325 mg Tab 1 Tab PO Q4H PRN Flagyl (Metronidazole) 500 Mg Tab 500 Mg PO TID Ciprofloxacin (Ciprofloxacin HCl) 500 Mg Tab 500 Mg PO BID Pantoprazole (Pantoprazole Sodium) 40 Mg Tab 40 Mg PO DAILY Metoprolol Tartrate 25 Mg Tab 25 Mg PO BID Lisinopril 20 Mg Tab 20 Mg PO Q12HR Calcium Carbonate (Antacid) 500 Mg Chew 500 Mg CHEW Q12HR Atorvastatin (Atorvastatin Calcium) 40 Mg Tab 40 Mg PO HS Aspirin 325 Mg Tab 325 Mg PO DAILY Norvasc (Amlodipine Besylate) 10 Mg Tab 10 Mg PO DAILY Review of Systems Except as stated in HPI: all other systems reviewed are Neg Physical Exam Narrative GENERAL: Well-appearing 51 year-old man, no acute distress. SKIN: Focused skin assessment warm/dry. HEAD: Atraumatic. Normocephalic. CARDIOVASCULAR: Regular rate and rhythm. No murmur appreciated. RESPIRATORY: No accessory muscle use. Clear to auscultation. Breath sounds equal bilaterally. GASTROINTESTINAL: Abdomen soft, non-tender, nondistended. Hepatic and splenic margins not palpable. MUSCULOSKELETAL: Bilateral lower extremity amputations. Focus exam of the right lower extremity reveals left jtmsb-lbi-lusx amputation. Chi are in place. The wound is a little bit necrosis right at the side of the wound with some superficial ulcerations of blistering. Is also small amount of erythema, about a centimeter or so, but tracks around the margins of most of the wound. There is tenderness at the wound site, as well as in the posterior aspect of the leg. There is a scant amount of drainage. Data Data Last Documented VS Vital Signs Date Time Temp Pulse Resp B/P Pulse Ox O2 Delivery O2 Flow Rate FiO2 10/17/16 14:35 67 17 129/83 97 Room Air 10/17/16 13:15 97.8 Orders Complete Blood Count With Diff (10/17/16 14:05) Comprehensive Metabolic Panel (10/17/16 14:05) [place] Sedimentation Rate (10/17/16 14:05) C-Reactive Protein (Crp) (10/17/16 14:05) Acetamin-Hydrocod 325-5 Mg ([place] 5-325 (10/17/16 14:15) Labs Laboratory Tests Test 10/17/16 14:14 White Blood Count 10.6 TH/MM3 Red Blood Count 3.43 MIL/MM3 Hemoglobin 9.3 GM/DL Hematocrit 27.3 % Mean Corpuscular Volume 79.6 FL Mean Corpuscular Hemoglobin 27.2 PG Mean Corpuscular Hemoglobin 34.2 % Concent Red Cell Distribution Width 15.3 % Platelet Count 370 TH/MM3 Mean Platelet Volume 7.4 FL Neutrophils (%) (Auto) 63.5 % Lymphocytes (%) (Auto) 23.7 % Monocytes (%) (Auto) 11.2 % Eosinophils (%) (Auto) 1.2 % Basophils (%) (Auto) 0.4 % Neutrophils # (Auto) 6.8 TH/MM3 Lymphocytes # (Auto) 2.5 TH/MM3 Monocytes # (Auto) 1.2 TH/MM3 Eosinophils # (Auto) 0.1 TH/MM3 Basophils # (Auto) 0.0 TH/MM3 CBC Comment DIFF FINAL Differential Comment Erythrocyte Sedimentation Rate 99 mm/hr Sodium Level 135 MEQ/L Potassium Level 3.9 MEQ/L Chloride Level 101 MEQ/L Carbon Dioxide Level 25.6 MEQ/L Anion Gap 8 MEQ/L Blood Urea Nitrogen 15 MG/DL Creatinine 0.92 MG/DL Estimat Glomerular Filtration 86 ML/MIN Rate Random Glucose 103 MG/DL Calcium Level 8.8 MG/DL Total Bilirubin 0.5 MG/DL Aspartate Amino Transf 33 U/L (AST/SGOT) Alanine Aminotransferase 42 U/L (ALT/SGPT) Alkaline Phosphatase 115 U/L C-Reactive Protein 1.22 MG/DL Total Protein 7.9 GM/DL Albumin 2.9 GM/DL [facility] Medical Decision Making Medical Screen Exam Complete: Yes Emergency Medical Condition: Yes Interpretation(s) LABS: CBC is unremarkable. Sedimentation rates 99 CMP is unremarkable CRP 1.2 to Differential Diagnosis Stump injury, stump infection, social issues Narrative Course Medical decision making This a 50-year-old male presents emergency Department with some case management issues and also pain and swelling in the stump site. We'll check labs. Will discuss with Dr. Rowlye. It doesn't either some inflammation around the stump site. Unclear if there is actual infection or not. There is a little bit of drainage. We'll check labs. If her planning on discharge, we'll discuss with case management. FINAL: Mr. Platt today is some inflammation at his stump. He fell twice yesterday. We'll have him see case management. We'll start on some antibiotics. Recommend close follow-up with Dr. Rowley. We did attempt to call Dr. Rowley but there is no return call. Outpatient follow-up. Diagnosis Primary Impression: Infection of amputation stump Additional Instructions: Follow-up with Dr. Rowley at the first available point. Take antibiotics as prescribed. Return to the emergency department for any worsening pain redness or swelling or fevers. Take Lortab as needed for pain. Med/Other Pt SpecificInfo: Prescription(s) given Scripts Cephalexin (Keflex)500 Mg [id number] Mg PO Q8H #30 CAP Ref 0 Prov:Osmar Jones MD 10/17/16 Hydrocodone-Acetaminophen (Lortab)5-325 Mg Tab1-2 Tab PO Q6H PRN (PAIN) #12 TAB Prov:Osmar Jones MD 10/17/16 Disposition: 01 DISCHARGE HOME Condition: Stable Osmar Jones MD October 17, 2016 14:27
[2016-10-17 14:29] LABS: AUTOMATED NEUTROPHIL # 6.8 TH/MM3 (1.8-7.7); BASOPHIL % 0.4 % (0.0-2.0); EOSINOPHIL # 0.1 TH/MM3 (0-0.4); EOSINOPHIL % 1.2 % (0.0-4.0); HEMATOCRIT 27.3 % (39.0-51.0); HEMO FLAGS DIFF FINAL; LYMPH % 23.7 % (9.0-44.0); LYMPHOCYTE # 2.5 TH/MM3 (1.0-4.8); MEAN CELL VOLUME 79.6 FL (80.0-100.0); MEAN CORPUSCULAR HEMOGLOBIN 27.2 PG (27.0-34.0); MEAN CORPUSCULAR HGB CONC 34.2 % (32.0-36.0); MONO % 11.2 % (0.0-8.0); NEUT % 63.5 % (16.0-70.0); PLATELET COUNT 370 TH/MM3 (150-450); RED BLOOD COUNT 3.43 MIL/MM3 (4.50-5.90); RED CELL DISTRIBUTION WIDTH 15.3 % (11.6-17.2); WHITE BLOOD COUNT 10.6 TH/MM3 (4.0-11.0)
[2016-10-17 14:35] VITALS: BP 129/83; PULSE 67; RESP 17; O2SAT 97
[2016-10-17 14:48] LABS: ANION GAP 8 MEQ/L (5-15); AST (GOT) 33 U/L (15-37); BICARBONATE 25.6 MEQ/L (21.0-32.0); BLOOD UREA NITROGEN 15 MG/DL (7-18); CHLORIDE 101 MEQ/L (98-107); GLOMERULAR FILTRATION RATE 86 ML/MIN (>89); POTASSIUM 3.9 MEQ/L (3.5-5.1); SODIUM (NA) 135 MEQ/L (136-145)
[2016-10-17 14:51] LABS: ALKALINE PHOSPHATASE 115 U/L (45-117); ALT (GPT) 42 U/L (12-78); TOTAL BILIRUBIN ADULT 0.5 MG/DL (0.2-1.0)
[2016-10-17] MEDS ORDERED: HYDR-3533 PO (15:30)
[2016-10-17] MEDS ORDERED: CEPH-460 PO (15:30)
[2016-10-17 15:35] VITALS: RESP 17
== END 2016-10-17 17:53 | disposition home or self-care (01) ==
LOC: NEPD 13:00
DX: T87.40 Infection of amputation stump, unspecified extremity (principal); Z89.512 Acquired absence of left leg below knee; Z89.511 Acquired absence of right leg below knee
CPT/HCPCS: 80053; 85025; 85652; 86140; 99283

== ENCOUNTER 2016-11-09 16:17 | Inpatient (IN) | payer MEDICAID, OTHER ==
[~2016-11-09] VITALS: Ht 162.6 cm; Wt 82.5 kg
[~2016-11-09 16:17] MED LIST changes: +CEPH-460 PO; -HOSP BED1; +HYDR-3533 PO; -TRANMIS2; -WHEEMIS3; -[UNRECOGNIZED DRUG - CODE]
[2016-11-09 16:22] VITALS: BP 114/70; PULSE 74; RESP 12; TEMP 98.8; O2SAT 96
[2016-11-09 17:10] VITALS: O2SAT 98
[2016-11-09] MEDS ORDERED: VANCOMYCIN INJ 1,000 MG in SODIUM CHLOR 0.9% 250 ML INJ 250 ML IV ONE (17:15)
[2016-11-09] MEDS ORDERED: MORPHINE SULFATE 4 MG/ML INJ IV PUSH ONE (17:15)
--- NOTE | 2016-11-09 17:23 | PD ---
HPI Chief Complaint: Skin Problem Time Seen by Provider: 17:05 Travel History International Travel<30 days: No Contact w/Intl Traveler<30days: No Traveled to known affect area: No History of Present Illness HPI 51-year-old male status post right foot amputation on 09/26/[address] Rowley for septic foot, sent in by his nurse practitioner today after she evaluated him in the office for admission for IV antibiotics and likely debridement for infection at surgical site. Patient states he was doing well until 1-2 days ago when he started noticing redness and pain at the site. Pain is moderate, constant, worse with movements and palpation. He denies fevers or chills. PFSH Past Medical History Cancer: No Diabetes: Yes Diminished Hearing: No Hypertension: Yes Past Surgical History Pacemaker: No Other Surgery: Yes (left AKA, R BKA) Social History Alcohol Use: No Tobacco Use: No Substance Use: No Allergies-Medications (Allergen,Severity, Reaction): Coded Allergies: Penicillin (Verified Allergy, Unknown, 10/17/16) Reported Meds & Prescriptions Reported Meds & Active Scripts Active Keflex (Cephalexin) 500 Mg Cap 500 Mg PO Q8H Lortab (Hydrocodone-Acetaminophen) 5-325 Mg Tab 1-2 Tab PO Q6H PRN [place] (Hydrocodone-Acetaminophen) 5-325 mg Tab 1 Tab PO Q4H PRN Flagyl (Metronidazole) 500 Mg Tab 500 Mg PO TID Ciprofloxacin (Ciprofloxacin HCl) 500 Mg Tab 500 Mg PO BID Pantoprazole (Pantoprazole Sodium) 40 Mg Tab 40 Mg PO DAILY Metoprolol Tartrate 25 Mg Tab 25 Mg PO BID Lisinopril 20 Mg Tab 20 Mg PO Q12HR Calcium Carbonate (Antacid) 500 Mg Chew 500 Mg CHEW Q12HR Atorvastatin (Atorvastatin Calcium) 40 Mg Tab 40 Mg PO HS Aspirin 325 Mg Tab 325 Mg PO DAILY Norvasc (Amlodipine Besylate) 10 Mg Tab 10 Mg PO DAILY Review of Systems Except as stated in HPI: all other systems reviewed are Neg Physical Exam Narrative GENERAL: Well-developed, well-nourished, comfortable, no acute distress. SKIN: Right leg with amputated foot with nadeen in place with wound with surrounding warmth and erythema and foul-smelling purulent drainage. No red streaks. No crepitus. HEAD: Atraumatic. Normocephalic. EYES: Pupils equal and round. No scleral icterus. No injection or drainage. ENT: Mucous membranes pink and moist. NECK: Trachea midline. No JVD. CARDIOVASCULAR: Regular rate and rhythm. RESPIRATORY: No accessory muscle use. Clear to auscultation. Breath sounds equal bilaterally. GASTROINTESTINAL: Abdomen soft, non-tender, nondistended. MUSCULOSKELETAL: Right BKA with skin exam as above. Left AKA. NEUROLOGICAL: Awake and alert. No obvious cranial nerve deficits. Motor grossly within normal limits. Normal speech. PSYCHIATRIC: Appropriate mood and affect; insight and judgment normal. Data Data Last Documented VS Vital Signs Date Time Temp Pulse Resp B/P Pulse Ox O2 Delivery O2 Flow Rate FiO2 11/09/16 16:22 98.8 74 12 114/70 96 Orders Complete Blood Count With Diff (11/09/16 17:12) Comprehensive Metabolic Panel (11/09/16 17:12) Prothrombin Time / Inr (Pt) (11/09/16 17:12) Act Partial Throm Time (Ptt) (11/09/16 17:12) Blood Culture (11/09/16 17:12) Ecg Monitoring (11/09/16 17:12) Iv Access Insert/Monitor (11/09/16 17:12) Oximetry (11/09/16 17:12) Morphine Inj (Morphine Inj) (11/09/16 17:15) Vancomycin Inj (Vancomycin Inj) (11/09/16 17:15) Wound Culture And Gram Stain (11/09/16 17:15) Ciprofloxacin 400 Mg Premix (Cipro 400 M (11/09/16 17:30) Metronidazole 500 Mg Inj (Flagyl 500 Mg (11/09/16 17:30) Wound Care (11/09/16 17:33) Consult Vascular Surgery (11/09/16 ) Labs Laboratory Tests Test 11/09/16 16:50 White Blood Count 19.5 TH/MM3 Red Blood Count 3.91 MIL/MM3 Hemoglobin 10.2 GM/DL Hematocrit 31.1 % Mean Corpuscular Volume 79.4 FL Mean Corpuscular Hemoglobin 26.2 PG Mean Corpuscular Hemoglobin 33.0 % Concent Red Cell Distribution Width 15.4 % Platelet Count 418 TH/MM3 Mean Platelet Volume 8.0 FL Neutrophils (%) (Auto) 75.5 % Lymphocytes (%) (Auto) 12.0 % Monocytes (%) (Auto) 10.6 % Eosinophils (%) (Auto) 1.6 % Basophils (%) (Auto) 0.3 % Neutrophils # (Auto) 14.7 TH/MM3 Lymphocytes # (Auto) 2.3 TH/MM3 Monocytes # (Auto) 2.1 TH/MM3 Eosinophils # (Auto) 0.3 TH/MM3 Basophils # (Auto) 0.1 TH/MM3 CBC Comment DIFF FINAL Differential Comment Prothrombin Time 11.3 SEC Prothromb Time International 1.0 RATIO Ratio Activated Partial 28.2 SEC Thromboplast Time Sodium Level 131 MEQ/L Potassium Level 4.8 MEQ/L Chloride Level 96 MEQ/L Carbon Dioxide Level 26.7 MEQ/L Anion Gap 8 MEQ/L Blood Urea Nitrogen 10 MG/DL Creatinine 1.00 MG/DL Estimat Glomerular Filtration 78 ML/MIN Rate Random Glucose 96 MG/DL Calcium Level 8.8 MG/DL Total Bilirubin 0.3 MG/DL Aspartate Amino Transf 15 U/L (AST/SGOT) Alanine Aminotransferase 31 U/L (ALT/SGPT) Alkaline Phosphatase 154 U/L Total Protein 8.1 GM/DL Albumin 3.0 GM/DL MDM Medical Decision Making Medical Screen Exam Complete: Yes Emergency Medical Condition: Yes Differential Diagnosis Surgical site infection, necrotizing fasciitis unlikely, sepsis, Narrative Course Case discussed with vascular surgeon Dr. Rowley who recommends IV antibiotics and admission to the medical service. He will see the patient in consultation. Vital signs show heart rate 74, blood pressure 114/70, pulse ox 96% on room air , oral temp of 98.8F. CBC shows WBC 19.5, hemoglobin 10.2, hematocrit 31.1, platelets 418, neutrophils 75.5%. CMP shows sodium 131, chloride 96, otherwise unremarkable. Case discussed with hospitalist Dr. Teresa who will admit the patient to her service. Diagnosis Primary Impression: Sepsis Qualified Code: A41.9 - Sepsis, due to unspecified organism Additional Impression: Surgical wound infection Qualified Code: T81.4XXA - Surgical wound infection, initial encounter Admitting Information Admitting Physician Requests: Admit Bridger Crockett MD Nov 09, 2016 17:23
[2016-11-09] MEDS ORDERED: metroNIDAZOLE 500 MG INJ 100 ML IV ONE (17:30)
[2016-11-09] MEDS ORDERED: CIPROFLOXACIN 400 MG PREMIX 200 ML IV ONE (17:30)
[2016-11-09 18:03] LABS: AUTOMATED NEUTROPHIL # 14.7 TH/MM3 (1.8-7.7); BASOPHIL # 0.1 TH/MM3 (0-0.2); BASOPHIL % 0.3 % (0.0-2.0); EOSINOPHIL # 0.3 TH/MM3 (0-0.4); EOSINOPHIL % 1.6 % (0.0-4.0); HEMATOCRIT 31.1 % (39.0-51.0); HEMO FLAGS DIFF FINAL; LYMPHOCYTE # 2.3 TH/MM3 (1.0-4.8); MEAN CELL VOLUME 79.4 FL (80.0-100.0); MEAN CORPUSCULAR HEMOGLOBIN 26.2 PG (27.0-34.0); MONO % 10.6 % (0.0-8.0); NEUT % 75.5 % (16.0-70.0); PLATELET COUNT 418 TH/MM3 (150-450); RED BLOOD COUNT 3.91 MIL/MM3 (4.50-5.90); RED CELL DISTRIBUTION WIDTH 15.4 % (11.6-17.2); WHITE BLOOD COUNT 19.5 TH/MM3 (4.0-11.0)
[2016-11-09 18:07] LABS: APTT (PATIENT) 28.2 SEC (24.3-30.1); PROTHROMBIN TIME - PATIENT 11.3 SEC (9.8-11.6)
[2016-11-09 18:31] LABS: ALT (GPT) 31 U/L (12-78); ANION GAP 8 MEQ/L (5-15); AST (GOT) 15 U/L (15-37); BICARBONATE 26.7 MEQ/L (21.0-32.0); BLOOD UREA NITROGEN 10 MG/DL (7-18); CHLORIDE 96 MEQ/L (98-107); GLOMERULAR FILTRATION RATE 78 ML/MIN (>89); POTASSIUM 4.8 MEQ/L (3.5-5.1); SODIUM (NA) 131 MEQ/L (136-145)
[2016-11-09 18:34] LABS: ALKALINE PHOSPHATASE 154 U/L (45-117); TOTAL BILIRUBIN ADULT 0.3 MG/DL (0.2-1.0)
[2016-11-09 19:00] VITALS: BP 110/74; PULSE 75; RESP 20; O2SAT 99
[2016-11-09] MEDS ORDERED: MAGNESIUM HYDROXIDE SUSP 30 ML CUP PO PRN (19:30)
[2016-11-09] MEDS ORDERED: ACETAMINOPHEN 325 MG TAB PO PRN (19:30)
[2016-11-09] MEDS ORDERED: LACTULOSE SYRUP 20 GM/30 ML CUP PO PRN (19:30)
[2016-11-09] MEDS ORDERED: oxyCODONE/ACETAMINOPHEN 5 MG/325 MG TAB PO PRN (19:30)
[2016-11-09] MEDS ORDERED: BISACODYL 10 MG SUPP RECTAL PRN (19:30)
[2016-11-09] MEDS ORDERED: Vancomycin Consult Pharmacy 1 EA OTHER SCH (19:30)
[2016-11-09] MEDS ORDERED: SENNOSIDES 8.6 MG TAB PO PRN (19:30)
--- NOTE | 2016-11-09 19:35 | HHI.HP ---
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 Per pt, he noted increased redness, purulent drainage and black coloration of right stump yesterday. Today, seen in office by TAG STRINGER and referred to ER for IV Abx and likely debridement. On arrival, BP 114/70, HR 74, O2 sat 96% on RA, Afebrile. WBC 19.5. Chemistry essentially unremarkable except for GFR of 78. INR 1.0. Dr. Rowley consulted by ER physician, recommended IV antibiotics w/ admission for debridement in am. S/p Vanc/Cipro/Flagyl in ER. Review of Systems Except as stated in HPI: all other systems reviewed are Neg ROS: 14 point review of systems otherwise negative. Past Family Social History Past Medical History PMH: HTN, h/o Left AKA and Right BKA 09/26/[address] Rowley Past Surgical History PAST SURGICAL HISTORY: Left AKA, Right BKA Allergies: Coded Allergies: Penicillin (Verified Allergy, Unknown, 10/17/16) Family History PAST FAMILY HISTORY: Reviewed. No h/o DM or CAD Social History PAST SOCIAL HISTORY: Negative for alcohol, tobacco or drugs. Physical Exam Vital Signs Vital Signs Date Time Temp Pulse Resp B/P Pulse Ox O2 Delivery O2 Flow Rate FiO2 11/09/16 16:22 98.8 74 12 114/70 96 Physical Exam PE: GENERAL: Middle aged white male in no acute distress. at bedside HEENT: PERRLA, EOMI. No scleral icterus or conjunctival pallor. No lid lag or facial droop. CARDIOVASCULAR: Regular rate and rhythm. No obvious murmurs to auscultation. No chest tenderness to palpation. RESPIRATORY: No obvious rhonchi or wheezing. Clear to auscultation. Breath sounds equal bilaterally. GASTROINTESTINAL: Abdomen soft, non-tender, nondistended. BS normal. MUSCULOSKELETAL: Left AKA, stump clean/intact, no signs of infection. Right AKA w/ dehiscence, foul-smelling, oozing, +necrosis. NEUROLOGICAL: Awake, alert and oriented x4. No focal neurologic deficits. Moving both upper and lower extremities spontaneously. Laboratory Laboratory Tests Test 11/09/16 16:50 White Blood Count 19.5 Red Blood Count 3.91 Hemoglobin 10.2 Hematocrit 31.1 Mean Corpuscular Volume 79.4 Mean Corpuscular Hemoglobin 26.2 Mean Corpuscular Hemoglobin 33.0 Concent Red Cell Distribution Width 15.4 Platelet Count 418 Mean Platelet Volume 8.0 Neutrophils (%) (Auto) 75.5 Lymphocytes (%) (Auto) 12.0 Monocytes (%) (Auto) 10.6 Eosinophils (%) (Auto) 1.6 Basophils (%) (Auto) 0.3 Neutrophils # (Auto) 14.7 Lymphocytes # (Auto) 2.3 Monocytes # (Auto) 2.1 Eosinophils # (Auto) 0.3 Basophils # (Auto) 0.1 CBC Comment DIFF FINAL Differential Comment Prothrombin Time 11.3 Prothromb Time International 1.0 Ratio Activated Partial 28.2 Thromboplast Time Sodium Level 131 Potassium Level 4.8 Chloride Level 96 Carbon Dioxide Level 26.7 Anion Gap 8 Blood Urea Nitrogen 10 Creatinine 1.00 Estimat Glomerular Filtration 78 Rate Random Glucose 96 Calcium Level 8.8 Total Bilirubin 0.3 Aspartate Amino Transf 15 (AST/SGOT) Alanine Aminotransferase 31 (ALT/SGPT) Alkaline Phosphatase 154 Total Protein 8.1 Albumin 3.0 Date/Time Procedure Status Source Growth 11/09/16 17:00 Gram Stain Received Wound Leg Pending 11/09/16 17:00 Wound Culture Received Wound Leg Pending 11/09/16 16:55 Aerobic Blood Culture Received Blood Peripheral Pending 11/09/16 16:55 Anaerobic Blood Culture Received Blood Peripheral Pending Result Diagram: 11/09/16 1650 11/09/16 1650 Assessment and Plan Problem List: (1) Amputation stump infection ICD Code: T87.40 Status: Acute (2) Dehydration ICD Code: E86.0 Status: Acute (3) HTN (hypertension) ICD Code: I10 Status: Acute Assessment and Plan A/P: 1. Stump Infection: s/p Right AKA 09/26/[address] Rowley for Wet Gangrene, now w/ stump infection, +foul-smelling, necrotic tissue and wound dehiscence. S/p Wound/Blood Cultures in ER, in addition to Vanc/Cipro/Flagyl. Will follow up cultures, continue w/ IV Abx. Dr. Rowley consulted by ER physician, plan is for stump debridement w/ possible need for Right AKA. NPO, IVF, analgesics/ antiemetics as needed. 2. Dehydration: GFR 78, BUN/Creatinine normal. Will monitor. IVF, repeat labs in am. 3. HTN: Controlled. Resume home medications. Monitor BP. 4. DVT Prophylaxis: Mechanical contraindication secondary to bilateral amputations, Pharmacologic contraindication in light of surgery in am. 5. Social work for d/c planning as needed. 6. Case discussed w/ ER physician at length. Physician Certification 2 Midnight Certification Type: Admission for Inpatient Services Order for Inpatient Services The services are ordered in accordance with Medicare regulations or non- Medicare payer requirements, as applicable. In the case of services not specified as inpatient-only, they are appropriately provided as inpatient services in accordance with the 2-midnight benchmark. Estimated LOS (days): 2 days is the estimated time the patient will need to remain in the hospital, assuming treatment plan goals are met and no additional complications. Post-Hospital Plan: Not yet determined La Burgos MD Nov 09, 2016 19:35
[2016-11-09] MEDS: DOCUSATE SODIUM 50 MG/SENNA 8.6 MG TAB PO SCH (21:00)
--- NOTE | 2016-11-09 21:08 | HHI.HP ---
History of Present Illness Chief Complaint: infected R BKA, drainage History of Present Illness 51 yo male with DM who underwent staged R BKA for wet gangrene, seen in clinic and noted to be draining purulence. No fevers/chills. + appetite. No change in perception of pain in R BKA Past/Family/Social History Past Medical History DM, although he notes that prior to last month, he was "borderline" Past Surgical History L AKA in the fall R staged BKA a couple of weeks ago Social History lives with Home Medications Active Scripts Cephalexin (Keflex)500 Mg [id number] Mg PO Q8H #30 CAP Ref 0 Prov:Osmar Jones MD 10/17/16 Hydrocodone-Acetaminophen (Lortab)5-325 Mg Tab1-2 Tab PO Q6H PRN (PAIN) #12 TAB Prov:Osmar Jones MD 10/17/16 Hydrocodone-Acetaminophen ([place])5-325 mg Tab1 Tab PO Q4H PRN (PAIN) #20 TAB Ref 0 Prov:Mariana Sood MD 10/06/16 Metronidazole (Flagyl)500 Mg [id number] Mg PO TID #9 TAB Ref 0 Prov:Mariana Sood MD 10/06/16 Ciprofloxacin 500 Mg Uzm175 Mg PO BID #6 TAB Ref 0 Prov:Mariana Sood MD 10/06/16 Pantoprazole 40 Mg Tab40 Mg PO DAILY #30 TAB Prov:Mariana Sood MD 10/06/16 Metoprolol Tartrate 25 Mg Tab25 Mg PO BID #60 TAB Prov:Mariana Sood MD 10/06/16 Lisinopril 20 Mg Tab20 Mg PO Q12HR #60 TAB Prov:Mariana Sood MD 10/06/16 Calcium Carbonate (Antacid) 500 Mg [id number] Mg CHEW Q12HR #20 EA Prov:Mariana Sood MD 10/06/16 Atorvastatin 40 Mg Tab40 Mg PO HS #30 TAB Prov:Mariana Sood MD 10/06/16 Aspirin 325 Mg Rii757 Mg PO DAILY #30 TAB Prov:Mariana Sood MD 10/06/16 Amlodipine (Norvasc)10 Mg Tab10 Mg PO DAILY #30 TAB Prov:Mariana Sood MD 10/06/16 Coded Allergies: Penicillin (Verified Allergy, Unknown, 10/17/16) Review of Systems Constitutional: DENIES: Fever, Chills Endocrine: DENIES: Heat/cold intolerance Musculoskeletal: COMPLAINS OF: Joint Swelling Physical Exam Vitals/I&O Date Time Temp Pulse Resp B/P Pulse Ox O2 Delivery O2 Flow Rate FiO2 11/09/16 16:22 98.8 74 12 114/70 96 Neuro: resting comfortably, conversant HEENT: anicteric sclera Neck: no JVD Heart: reg rate Lungs: nonlabored Vascular: no palpable R popliteal pulse Extremities: necrotic, foul smelling lateral aspect of R BKA with liquefactive necrosis of muscle; modest surrounding erythema that extends to 2-3 cm proximal in incision L AKA with muscle atrophy and palpable femur but no skin breakfdown Laboratory Tests Test 11/09/16 16:50 White Blood Count 19.5 Red Blood Count 3.91 Hemoglobin 10.2 Hematocrit 31.1 Mean Corpuscular Volume 79.4 Mean Corpuscular Hemoglobin 26.2 Mean Corpuscular Hemoglobin 33.0 Concent Red Cell Distribution Width 15.4 Platelet Count 418 Mean Platelet Volume 8.0 Neutrophils (%) (Auto) 75.5 Lymphocytes (%) (Auto) 12.0 Monocytes (%) (Auto) 10.6 Eosinophils (%) (Auto) 1.6 Basophils (%) (Auto) 0.3 Neutrophils # (Auto) 14.7 Lymphocytes # (Auto) 2.3 Monocytes # (Auto) 2.1 Eosinophils # (Auto) 0.3 Basophils # (Auto) 0.1 CBC Comment DIFF FINAL Differential Comment Prothrombin Time 11.3 Prothromb Time International 1.0 Ratio Activated Partial 28.2 Thromboplast Time Sodium Level 131 Potassium Level 4.8 Chloride Level 96 Carbon Dioxide Level 26.7 Anion Gap 8 Blood Urea Nitrogen 10 Creatinine 1.00 Estimat Glomerular Filtration 78 Rate Random Glucose 96 Calcium Level 8.8 Total Bilirubin 0.3 Aspartate Amino Transf 15 (AST/SGOT) Alanine Aminotransferase 31 (ALT/SGPT) Alkaline Phosphatase 154 Total Protein 8.1 Albumin 3.0 Date/Time Procedure Status Source Growth 11/09/16 17:00 Gram Stain Received Wound Leg Pending 11/09/16 17:00 Wound Culture Received Wound Leg Pending 11/09/16 16:55 Aerobic Blood Culture Received Blood Peripheral Pending 11/09/16 16:55 Anaerobic Blood Culture Received Blood Peripheral Pending Assessment and Plan Plan infected R BKA The patient, his and I talked about the very high likelihood that he will end up with R AKA. However, I told him I think it is worth a chance to save his RIGHT knee and as such, will schedule him for R BKA debridement tomorrow ( Fri). Rajesh Rowley MD FASC cardiovascular invasive specialist [facility] - [facility] V[facility] at [facility] [phone] Rajesh Rowley MD Nov 09, 2016 21:08
[2016-11-09] MEDS: METOPROLOL TARTRATE 25 MG TAB PO SCH (21:56)
[2016-11-09] MEDS: ATORVASTATIN 40 MG TAB PO SCH (21:56)
[2016-11-09] MEDS: LISINOPRIL 20 MG TAB PO SCH (21:56)
[2016-11-09] MEDS: SODIUM CHLORIDE 0.9% FLUSH 10 ML FLUSH IV FLUSH SCH (21:57)
[2016-11-09 22:00] VITALS: BP 132/84; PULSE 82; RESP 17; TEMP 97.2; O2SAT 96
[2016-11-09] MEDS: MORPHINE SULFATE 4 MG/ML INJ IV PRN (23:06)
[2016-11-09] MEDS: metroNIDAZOLE 500 MG INJ 100 ML IV SCH (23:57)
[2016-11-10] VITALS (7 sets, daily range): BP systolic 128–151; BP diastolic 70–92; PULSE 70–85; RESP 17–20; TEMP 95.6–96.8; O2SAT 95–97
[2016-11-10] MEDS ORDERED: SODIUM CHLORID 0.9% 500 ML IV PRN (00:45)
[2016-11-10] MEDS ORDERED: CHLORHEXIDINE GLUCONATE 2 % 1 PACK (2 CLOTHS) TOPICAL PRN (00:45)
[2016-11-10] MEDS ORDERED: LACTATED RINGER'S 1000 ML IV PRN (00:45)
[2016-11-10] MEDS ORDERED: INSULIN HUMAN REGULAR 1,000 UNITS/10 ML VIAL SQ PRN (00:45)
[2016-11-10] MEDS ORDERED: POVIDONE IODINE 5% (ANTISEPSIS KIT) 4 APPLICATIONS EACH NARE PRN (00:45)
[2016-11-10] MEDS: MORPHINE SULFATE 4 MG/ML INJ IV PRN ×5 (02:12→20:34)
[2016-11-10] MEDS: CIPROFLOXACIN 400 MG PREMIX 200 ML IV SCH ×2 (04:55→17:42)
[2016-11-10] MEDS: VANCOMYCIN 1,000 MG/NS 250 ML IV SCH ×4 (06:03→18:49)
[2016-11-10 07:07] LABS: AUTOMATED NEUTROPHIL # 8.5 TH/MM3 (1.8-7.7); BASOPHIL # 0.1 TH/MM3 (0-0.2); BASOPHIL % 0.4 % (0.0-2.0); EOSINOPHIL # 0.7 TH/MM3 (0-0.4); EOSINOPHIL % 5.2 % (0.0-4.0); HEMATOCRIT 26.2 % (39.0-51.0); HEMO FLAGS DIFF FINAL; LYMPH % 18.5 % (9.0-44.0); LYMPHOCYTE # 2.4 TH/MM3 (1.0-4.8); MEAN CORPUSCULAR HEMOGLOBIN 26.3 PG (27.0-34.0); MEAN CORPUSCULAR HGB CONC 33.7 % (32.0-36.0); MONO % 10.9 % (0.0-8.0); PLATELET COUNT 322 TH/MM3 (150-450); RED BLOOD COUNT 3.36 MIL/MM3 (4.50-5.90); RED CELL DISTRIBUTION WIDTH 15.5 % (11.6-17.2); WHITE BLOOD COUNT 13.1 TH/MM3 (4.0-11.0)
--- NOTE | 2016-11-10 07:18 | PD.VS.PN ---
Pre-operative Note Pre-operative diagnosis: infected R BKA Planned procedure: R BKA debridement Interval History: The patient was admitted through the ED last night, started on broad antibiotics. Ready for OR today. I had a thorough discussion with the patient and his about the procedure and they both know that ultimately, he may end up with R AKA. Labs: Laboratory Results Test 11/09/16 11/10/16 16:50 05:51 Prothromb Time International 1.0 RATIO Ratio Sodium Level 131 MEQ/L (136-145) Potassium Level 4.8 MEQ/L (3.5-5.1) Chloride Level 96 MEQ/L (98-107) Carbon Dioxide Level 26.7 MEQ/L (21.0-32.0) Anion Gap 8 MEQ/L (5-15) Blood Urea Nitrogen 10 MG/DL (7-18) Random Glucose 96 MG/DL (74-106) Calcium Level 8.8 MG/DL (8.5-10.1) White Blood Count 13.1 TH/MM3 (4.0-11.0) Red Blood Count 3.36 MIL/MM3 (4.50-5.90) Hemoglobin 8.8 GM/DL (13.0-17.0) Hematocrit 26.2 % (39.0-51.0) Mean Corpuscular Volume 78.0 FL (80.0-100.0) Mean Corpuscular Hemoglobin 26.3 PG (27.0-34.0) Mean Corpuscular Hemoglobin 33.7 % Concent (32.0-36.0) Red Cell Distribution Width 15.5 % (11.6-17.2) Platelet Count 322 TH/MM3 (150-450) Mean Platelet Volume 7.7 FL (7.0-11.0) Blood: none needed Orders: NPO after MN Already on systemic broad antibiotics Post-operative destination: PACU, then back to regular floor Operative site marked: Yes Consent: Informed consent has been obtained from Demetria Guerrero. I have explained the procedure in detail and discussed the risks, benefits, and potential complications. All questions have been answered. Rajesh Rowley MD Nov 10, 2016 07:18
[2016-11-10] MEDS ORDERED: BUPIVACAINE/EPINEPHRINE 0.5% PF 30 ML VIAL ONE (07:34)
[2016-11-10] MEDS ORDERED: LIDOCAINE 0.5%/EPINEPHrine 1:200,000 SOLN 50 ML VIAL ONE (07:34)
[2016-11-10 07:43] LABS: ALKALINE PHOSPHATASE 133 U/L (45-117); ALT (GPT) 24 U/L (12-78); ANION GAP 9 MEQ/L (5-15); AST (GOT) 12 U/L (15-37); BICARBONATE 22.7 MEQ/L (21.0-32.0); BLOOD UREA NITROGEN 13 MG/DL (7-18); CHLORIDE 97 MEQ/L (98-107); GLOMERULAR FILTRATION RATE 88 ML/MIN (>89); POTASSIUM 4.4 MEQ/L (3.5-5.1); SODIUM (NA) 129 MEQ/L (136-145); TOTAL BILIRUBIN ADULT 0.2 MG/DL (0.2-1.0)
[2016-11-10] MEDS: metroNIDAZOLE 500 MG INJ 100 ML IV SCH ×3 (08:00→23:15)
[2016-11-10] MEDS ORDERED: MIDAZOLAM HCL 2 MG/2 ML VIAL ONE (08:08)
[2016-11-10] MEDS ORDERED: ACETAMINOPHEN 1000 MG/100 ML VIAL IV ONE (08:08)
[2016-11-10] MEDS ORDERED: fentaNYL CITRATE 250 MCG/5 ML AMP ONE (08:09)
[2016-11-10] MEDS ORDERED: FAMOTIDINE 20 MG/2 ML VIAL ONE (08:09)
[2016-11-10] MEDS ORDERED: GENTAMICIN SULFATE 80 MG/2 ML VIAL ONE (08:17)
[2016-11-10] MEDS: DOCUSATE SODIUM 50 MG/SENNA 8.6 MG TAB PO SCH ×2 (09:00→21:00)
--- NOTE | 2016-11-10 09:06 | HHI.PR ---
Immediate Post Op Note Procedure Date: Nov 10, 2016 Pre Op Diagnosis: infected R BKA Post Op Diagnosis: infected R BKA Surgeon: Rajesh Rowley Office Support Associate(s): Desmond Florez Procedure: R BKA debridement Findings: necrotic muscle, viable tissue Complications: none Specimen(s) removed: none for pathology Estimated blood loss: 30mL Anesthesia: General Drains: None Fluids: 300mL IVF Patient to: PACU Implant/Devices: SEE IMPLANT LOG (if applicable) Date/Time of Procedure: SEE SURGICAL CARE RECORD Rajesh Rowley MD Nov 10, 2016 09:06
[2016-11-10] MEDS ORDERED: DO NOT ADM ANY ANTICOAGULANT DRUGS PRN (09:11)
[2016-11-10] MEDS ORDERED: *morphine SULFATE 8 MG/ML PERIprocedure ONLY ONE ×2 (09:19→09:29)
[2016-11-10] MEDS ORDERED: *MEPERIDINE 25 MG INJ VIAL PERIprocedural Use ONLY ONE (09:38)
[2016-11-10] MEDS: PANTOPRAZOLE SOD 40 MG DELAYED RELEASE TAB PO SCH (10:16)
[2016-11-10] MEDS: LISINOPRIL 20 MG TAB PO SCH ×2 (10:16→20:33)
[2016-11-10] MEDS: HYDROmorphone HCL 2 MG TAB PO PRN ×4 (10:17→23:08)
[2016-11-10] MEDS: METOPROLOL TARTRATE 25 MG TAB PO SCH ×2 (10:17→20:33)
[2016-11-10] MEDS: SODIUM CHLORIDE 0.9% FLUSH 10 ML FLUSH IV FLUSH SCH ×2 (10:18→21:00)
[2016-11-10] MEDS: ONDANSETRON HCL 4 MG/2 ML VIAL IVP PRN ×3 (10:21→23:28)
[2016-11-10] MEDS ORDERED: PROPOFOL 200 MG/20 ML AMP IV ONE (12:00)
[2016-11-10] MEDS ORDERED: ONDANSETRON HCL 4 MG/2 ML VIAL IV PUSH ONE (12:00)
[2016-11-10] MEDS ORDERED: ePHEDrine/NS 25 MG/5 ML SYR IV ONE (12:00)
[2016-11-10] MEDS ORDERED: NEOSTIGMINE 3 MG/3 ML SYR IV ONE (12:00)
--- NOTE | 2016-11-10 13:17 | HHI.PR ---
Subjective Remarks pt was sleeping when i entered the room woke up to voice , stated he is nauseous and requested inc pain meds no other c/o Objective Vitals Vital Signs Date Time Temp Pulse Resp B/P Pulse Ox O2 Delivery O2 Flow Rate FiO2 11/10/16 12:00 95.6 73 20 151/70 95 11/10/16 09:34 15 11/10/16 09:24 15 11/10/16 09:10 98.4 86 20 162/89 98 Nasal Cannula 3 11/10/16 04:00 96.8 77 17 128/74 97 11/10/16 00:00 96.2 85 17 144/92 97 11/09/16 22:00 97.2 82 17 132/84 96 11/09/16 19:00 75 20 110/74 99 11/09/16 17:10 98 Room Air 11/09/16 16:22 98.8 74 12 114/70 96 I/O 11/09/16 11/09/16 11/09/16 11/10/16 11/10/16 11/10/16 07:00 15:00 23:00 07:00 15:00 23:00 Intake Total 240 ml 424 ml 350 ml Output Total 200 ml 300 ml 50 ml Balance 40 ml 124 ml 300 ml Intake Oral 240 ml 0 ml IV Total 0 ml 424 ml 50 ml Other 300 ml Output Urine Total 200 ml 300 ml Estimated Blood Loss 50 ml Result Diagram: 11/10/16 0551 11/10/16 0551 Objective Remarks GENERAL: This is a well-nourished, well-developed patient, in no apparent distress. CARDIOVASCULAR: Regular rate and rhythm without murmurs, gallops, or rubs. RESPIRATORY: Clear to auscultation. Breath sounds equal bilaterally. No wheezes , rales, or rhonchi. GASTROINTESTINAL: Abdomen soft, non-tender, nondistended. Normal active bowel sounds MUSCULOSKELETAL: b/l amputation AKA, right stump in gauze NEURO: Alert & Oriented x4 to person, place, time, situation. Moves all ext x4 A/P Problem List: (1) Amputation stump infection ICD Code: T87.40 Status: Acute (2) Dehydration ICD Code: E86.0 Status: Acute (3) HTN (hypertension) ICD Code: I10 Status: Acute Assessment and Plan - Stump Infection: s/p Right AKA 4/25/[address] Rowley for Wet Gangrene, now w / stump infection, +foul-smelling, necrotic tissue and wound dehiscence. S/p Wound/Blood Cultures in ER, in addition to Vanc/Cipro/Flagyl. Will follow up cultures, continue w/ IV Abx. Dr. Rowley consulted s/p stump debridement, IVF , analgesics[place]. [place] [id number] - Dehydration w hponatremia 131-129 GFR 78, BUN/Creatinine normal. will place on ns for 1500cc repeat lab in am - HTN: Controlled. Resume home medications. Monitor BP. -anemia suspect chronic vs post op , monitor , transfuse below 8 , 8.8 today - DVT Prophylaxis: Mechanical contraindication secondary to bilateral amputations, Pharmacologic heparin once ok with sx Cramen Park MD Nov 10, 2016 13:17 Carmen Park MD Nov 10, 2016 13:17
[2016-11-10] MEDS: SODIUM CHLOR 0.9% 1000 ML INJ 1,000 ML IV SCH (13:28)
--- NOTE | 2016-11-10 17:30 | PD.WCN.NOT ---
Neg Pressure Wound Therapy Wound Location Wound Location: Right BKA Wound Description Length: 6cm Width: 19cm Depth: ~6cm Wound bed appearance: ~40% adipose tissue with ~40% red non granulating tissue ~20% yellow/brown necrotic tissue Periwound appearance: Unremarkable Settings Suction: 125 mmHg, Continuous Intensity: Low Foam type: Black Number of pieces: 2 Additonal Information Patient seen with PARMINDER Blue on 7 North at the request of Dr Rowley for VAC placement to right bka. Dacia and oil emulsion removed to reveal a surgical wound measured and described above. Wound was cleansed with wound cleanser and window paned using VAC drape around wound margins. 1 piece black granufoam was coiled into wound bed and secured with VAC drape. Sensi Trac pad placed over medial side of vascular wound bed. Once machine was turned on it was noticed that a small area on the lateral side of the wound was showing. Another piece of black granufoam was added to the wound bed to make 2 pieces black granufoam used in all. Wound VAC is working properly with out leaks. Next wound VAC change to be done Sunday11/13/16. Taylor Cordon [facility] Nov 10, 2016 17:30
--- NOTE | 2016-11-10 18:04 | MP ---
cc: TRACY ROWLEY MD DATE OF SURGERY 11/10/16 PREOPERATIVE DIAGNOSIS Right below-knee amputation and infection. POSTOPERATIVE DIAGNOSIS Right below-knee amputation and infection. PROCEDURE Debridement of skin, subcutaneous tissue and muscle of right lower extremity, below-knee amputation (24 sq cm) LIZ Rowley MD NURSING EXECUTIVE SURGEON Darin Crooks. ANESTHESIA General INDICATIONS Mr. Butterfield is a gentleman with bilateral lower extremity amputations. He has a left above-knee amputation done in the fall and a right below-knee amputation was done several weeks ago. He presented to the clinic and then admitted to the emergency room with a right below-knee amputation necrosis. He is taken to the operating room for debridement. PROCEDURE IN DETAIL Informed consent was obtained from patient. He was taken to the operating room and placed supine on the operating table. Appropriate timeout was taken to ensure patient identity, operative site and planned procedure. The administration of antibiotics was not necessary as the patient was on systemic and therapeutic antibiotics and this will be continued postoperatively for ongoing treatment of an infection. Everyone in the room agreed with the time-out and we proceeded. His right leg was prepped and draped and the nadeen were removed. The skin, subcutaneous tissue and muscle was debrided sharply. Three liters of irrigation was used to irrigate the wound. The entire wound was noted to be well-perfused and, after debridement, there was a reasonable viability of the wound and no obvious purulence nor any other necrotic muscle. The wound was then packed with Kerlix and wrapped in Victoriano bandage. There were no complications and I was present and scrubbed and performed the entire procedure. Tracy Rowley MD RJKings/ /9:33 AM /5:50 PM
[2016-11-10] MEDS: ATORVASTATIN 40 MG TAB PO SCH (20:33)
[2016-11-11] VITALS: BP 128/80; PULSE 73; RESP 17; TEMP 96.2; O2SAT 97
[2016-11-11] MEDS: MORPHINE SULFATE 4 MG/ML INJ IV PRN ×5 (00:26→21:35)
[2016-11-11] MEDS: SODIUM CHLOR 0.9% 1000 ML INJ 1,000 ML IV SCH (01:55)
[2016-11-11] MEDS: HYDROmorphone HCL 2 MG TAB PO PRN ×4 (03:47→20:48)
[2016-11-11 04:00] VITALS: BP 173/87; PULSE 80; RESP 17; TEMP 96.8; O2SAT 95
[2016-11-11] MEDS: ONDANSETRON HCL 4 MG/2 ML VIAL IVP PRN (04:53)
[2016-11-11] MEDS: CIPROFLOXACIN 400 MG PREMIX 200 ML IV SCH ×2 (05:22→17:26)
[2016-11-11] MEDS ORDERED: PHARMACY ORDERED LAB ONE (05:45)
[2016-11-11] MEDS: VANCOMYCIN 1,000 MG/NS 250 ML IV SCH ×2 (06:35)
[2016-11-11 06:47] LABS: AUTOMATED NEUTROPHIL # 8.5 TH/MM3 (1.8-7.7); BASOPHIL % 0.2 % (0.0-2.0); EOSINOPHIL # 0.2 TH/MM3 (0-0.4); EOSINOPHIL % 1.6 % (0.0-4.0); HEMATOCRIT 26.4 % (39.0-51.0); HEMO FLAGS DIFF FINAL; LYMPH % 15.5 % (9.0-44.0); LYMPHOCYTE # 1.8 TH/MM3 (1.0-4.8); MEAN CELL VOLUME 78.3 FL (80.0-100.0); MEAN CORPUSCULAR HEMOGLOBIN 26.1 PG (27.0-34.0); MEAN CORPUSCULAR HGB CONC 33.3 % (32.0-36.0); MONO % 9.3 % (0.0-8.0); NEUT % 73.4 % (16.0-70.0); PLATELET COUNT 327 TH/MM3 (150-450); RED BLOOD COUNT 3.38 MIL/MM3 (4.50-5.90); RED CELL DISTRIBUTION WIDTH 15.2 % (11.6-17.2); WHITE BLOOD COUNT 11.5 TH/MM3 (4.0-11.0)
[2016-11-11 07:05] LABS: BICARBONATE 23.5 MEQ/L (21.0-32.0); POTASSIUM 4.4 MEQ/L (3.5-5.1)
[2016-11-11 08:00] VITALS: BP 164/87; PULSE 82; RESP 18; TEMP 97; O2SAT 98
[2016-11-11] MEDS: METOPROLOL TARTRATE 25 MG TAB PO SCH ×2 (08:14→20:45)
[2016-11-11] MEDS: LISINOPRIL 20 MG TAB PO SCH ×2 (08:14→20:45)
[2016-11-11] MEDS: PANTOPRAZOLE SOD 40 MG DELAYED RELEASE TAB PO SCH (08:14)
[2016-11-11] MEDS: metroNIDAZOLE 500 MG INJ 100 ML IV SCH ×2 (08:14→16:23)
[2016-11-11] MEDS: SODIUM CHLORIDE 0.9% FLUSH 10 ML FLUSH IV FLUSH SCH ×2 (08:15→20:46)
[2016-11-11] MEDS: DOCUSATE SODIUM 50 MG/SENNA 8.6 MG TAB PO SCH ×2 (08:15→20:45)
[2016-11-11 12:00] VITALS: BP 173/86; PULSE 80; RESP 18; TEMP 97.8; O2SAT 98
[2016-11-11 16:00] VITALS: BP 111/57; PULSE 76; RESP 18; TEMP 97.9; O2SAT 99
[2016-11-11 20:00] VITALS: BP 151/72; PULSE 78; RESP 18; TEMP 96.6; O2SAT 99
[2016-11-11] MEDS: VANCOMYCIN INJ 1,250 MG in SODIUM CHLOR 0.9% 250 ML INJ 250 ML IV SCH (20:44)
[2016-11-11] MEDS: ATORVASTATIN 40 MG TAB PO SCH (20:45)
[2016-11-12] VITALS: BP 116/64; PULSE 74; RESP 16; TEMP 97.7; O2SAT 98
[2016-11-12] MEDS: metroNIDAZOLE 500 MG INJ 100 ML IV SCH ×3 (01:03→16:48)
[2016-11-12] MEDS: HYDROmorphone HCL 2 MG TAB PO PRN ×3 (01:08→18:29)
[2016-11-12] MEDS: MORPHINE SULFATE 4 MG/ML INJ IV PRN ×2 (02:19→21:00)
[2016-11-12] MEDS: SODIUM CHLORIDE 0.9% FLUSH 10 ML FLUSH IV FLUSH PRN (02:20)
[2016-11-12 05:16] LABS: AUTOMATED NEUTROPHIL # 6.6 TH/MM3 (1.8-7.7); BASOPHIL % 0.3 % (0.0-2.0); EOSINOPHIL # 0.3 TH/MM3 (0-0.4); EOSINOPHIL % 2.6 % (0.0-4.0); HEMATOCRIT 24.5 % (39.0-51.0); HEMO FLAGS DIFF FINAL; LYMPH % 20.7 % (9.0-44.0); LYMPHOCYTE # 2.1 TH/MM3 (1.0-4.8); MEAN CELL VOLUME 76.6 FL (80.0-100.0); MEAN CORPUSCULAR HEMOGLOBIN 26.4 PG (27.0-34.0); MEAN CORPUSCULAR HGB CONC 34.5 % (32.0-36.0); MONO % 10.1 % (0.0-8.0); NEUT % 66.3 % (16.0-70.0); PLATELET COUNT 320 TH/MM3 (150-450); RED CELL DISTRIBUTION WIDTH 15.5 % (11.6-17.2)
[2016-11-12 05:39] LABS: BICARBONATE 22.9 MEQ/L (21.0-32.0); POTASSIUM 3.7 MEQ/L (3.5-5.1)
[2016-11-12] MEDS: CIPROFLOXACIN 400 MG PREMIX 200 ML IV SCH ×2 (05:51→18:26)
[2016-11-12 08:00] VITALS: BP 181/95; PULSE 76; RESP 19; TEMP 97.1; O2SAT 97
[2016-11-12] MEDS: METOPROLOL TARTRATE 25 MG TAB PO SCH ×2 (08:18→20:59)
[2016-11-12] MEDS: PANTOPRAZOLE SOD 40 MG DELAYED RELEASE TAB PO SCH (08:18)
[2016-11-12] MEDS: LISINOPRIL 20 MG TAB PO SCH ×2 (08:18→20:59)
[2016-11-12] MEDS: DOCUSATE SODIUM 50 MG/SENNA 8.6 MG TAB PO SCH ×2 (08:18→21:00)
[2016-11-12] MEDS: SODIUM CHLORIDE 0.9% FLUSH 10 ML FLUSH IV FLUSH SCH ×2 (08:19→21:00)
--- NOTE | 2016-11-12 08:56 | HHI.PR ---
Subjective Remarks Late note entry from 11/11: Resting in bed no acute issue stated the pain in the stump is tolerable, no fever or chills Objective Vitals Vital Signs Date Time Temp Pulse Resp B/P Pulse Ox O2 Delivery O2 Flow Rate FiO2 11/12/16 08:00 97.1 76 19 181/95 97 11/12/16 03:15 18 11/12/16 03:15 18 11/12/16 00:00 97.7 74 16 116/64 98 11/11/16 20:00 96.6 78 18 151/72 99 11/11/16 16:00 97.9 76 18 111/57 99 11/11/16 12:00 97.8 80 18 173/86 98 I/O 11/11/16 11/11/16 11/11/16 11/12/16 11/12/16 11/12/16 07:00 15:00 23:00 07:00 15:00 23:00 Intake Total 776 ml 947 ml 941 ml 498 ml Output Total 500 ml 950 ml 1500 ml 650 ml Balance 276 ml -3 ml -559 ml -152 ml Intake Oral 240 ml 480 ml 360 ml 360 ml IV Total 536 ml 467 ml 581 ml 138 ml Output Urine Total 500 ml 900 ml 1500 ml 600 ml Drainage Total 0 ml 50 ml 0 ml 50 ml # Bowel Movements 0 0 0 Result Diagram: 11/12/1642011/12/16420 Objective Remarks GENERAL: This is a well-nourished, well-developed patient, in no apparent distress. CARDIOVASCULAR: Regular rate and rhythm without murmurs, gallops, or rubs. RESPIRATORY: Clear to auscultation. Breath sounds equal bilaterally. No wheezes , rales, or rhonchi. GASTROINTESTINAL: Abdomen soft, non-tender, nondistended. Normal active bowel sounds MUSCULOSKELETAL: b/l amputation AKA, right stump in gauze NEURO: Alert & Oriented x4 to person, place, time, situation. Moves all ext x4 A/P Problem List: (1) Amputation stump infection ICD Code: T87.40 Status: Acute (2) Dehydration ICD Code: E86.0 Status: Acute (3) HTN (hypertension) ICD Code: I10 Status: Acute Assessment and Plan - Stump Infection: s/p Right AKA 09/26/[address] Rowley for Wet Gangrene, now w / stump infection, +foul-smelling, necrotic tissue and wound dehiscence. S/p Wound/Blood Cultures in ER, in addition to Vanc/Cipro/Flagyl. Will follow up cultures, continue w/ IV Abx. Dr. Rowley consulted s/p stump debridement, IVF , analgesics/antiemetics as needed. wbc normalizing - Dehydration w hponatremia 131-129 GFR 78, BUN/Creatinine normal. Status post iv fluid, still sustained around 129-131 possibly be up with pneumonia, he is completely nonsymptomatic - HTN: Controlled resume medication monitor blood pressure -anemia suspect chronic vs post op , monitor , transfuse below 8 , - DVT Prophylaxis: Mechanical contraindication secondary to bilateral amputations, Pharmacologic heparin once ok with sx Carmen Park MD Nov 12, 2016 08:56
[2016-11-12] MEDS: VANCOMYCIN INJ 1,250 MG in SODIUM CHLOR 0.9% 250 ML INJ 250 ML IV SCH ×2 (10:06→20:59)
[2016-11-12 12:00] VITALS: BP 159/82; PULSE 73; RESP 18; TEMP 96.4; O2SAT 97
--- NOTE | 2016-11-12 12:09 | PD.VS.PN ---
Subjective POD #: 2 Procedure(s): R BKA debridement Subjective/Hospital Course VAC placed, pain during application but tolerable since no fevers, WBC normalizing Objective Vitals/I&O Date Time Temp Pulse Resp B/P Pulse Ox O2 Delivery O2 Flow Rate FiO2 11/12/16 08:00 97.1 76 19 181/95 97 11/12/16 03:15 18 11/12/16 03:15 18 11/12/16 00:00 97.7 74 16 116/64 98 11/11/16 20:00 96.6 78 18 151/72 99 11/11/16 16:00 97.9 76 18 111/57 99 Exam: R BK vac in place Laboratory Laboratory Tests Test 11/12/16 04:21 White Blood Count 10.0 Red Blood Count 3.20 Hemoglobin 8.5 Hematocrit 24.5 Mean Corpuscular Volume 76.6 Mean Corpuscular Hemoglobin 26.4 Mean Corpuscular Hemoglobin 34.5 Concent Red Cell Distribution Width 15.5 Platelet Count 320 Mean Platelet Volume 7.4 Neutrophils (%) (Auto) 66.3 Lymphocytes (%) (Auto) 20.7 Monocytes (%) (Auto) 10.1 Eosinophils (%) (Auto) 2.6 Basophils (%) (Auto) 0.3 Neutrophils # (Auto) 6.6 Lymphocytes # (Auto) 2.1 Monocytes # (Auto) 1.0 Eosinophils # (Auto) 0.3 Basophils # (Auto) 0.0 CBC Comment DIFF FINAL Differential Comment Sodium Level 129 Potassium Level 3.7 Chloride Level 95 Carbon Dioxide Level 22.9 Anion Gap 11 Blood Urea Nitrogen 9 Creatinine 0.63 Estimat Glomerular Filtration 133 Rate Random Glucose 115 Calcium Level 8.1 Date/Time Procedure Status Source Growth 11/09/16 17:00 Gram Stain - Final Resulted Wound Leg 11/09/16 17:00 Wound Culture - Preliminary Resulted S. Aureus Mrsa Enterococcus Faecalis Fungus Species 11/09/16 16:55 Aerobic Blood Culture - Preliminary Resulted Blood Peripheral NO GROWTH IN 3 DAYS 11/09/16 16:55 Anaerobic Blood Culture - Preliminary Resulted Blood Peripheral NO GROWTH IN 3 DAYS Assessment and Plan Plan VAC down tomorrow (Sunday) - either W to D or replace VAC depending on how it looks at that time. Rajesh Rowley MD FASC wash tub machine operator [facility] - Heart and Vascular Surgery at [facility] [phone] Rajesh Rowley MD Nov 12, 2016 12:09
[2016-11-12 16:00] VITALS: BP 149/80; PULSE 77; RESP 18; TEMP 97.9; O2SAT 96
--- NOTE | 2016-11-12 17:09 | HHI.PR ---
Subjective Remarks Patient denied complain he is resting in bed comfortably plan to review the wound tomorrow and decide for the wound VAC Objective Vitals Vital Signs Date Time Temp Pulse Resp B/P Pulse Ox O2 Delivery O2 Flow Rate FiO2 11/12/16 16:00 97.9 77 18 149/80 96 11/12/16 12:00 96.4 73 18 159/82 97 11/12/16 08:00 97.1 76 19 181/95 97 11/12/16 03:15 18 11/12/16 03:15 18 11/12/16 00:00 97.7 74 16 116/64 98 11/11/16 20:00 96.6 78 18 151/72 99 I/O 11/11/16 11/11/16 11/11/16 11/12/16 11/12/16 11/12/16 07:00 15:00 23:00 07:00 15:00 23:00 Intake Total 776 ml 947 ml 941 ml 498 ml 480 ml Output Total 500 ml 950 ml 1500 ml 650 ml 900 ml 950 ml Balance 276 ml -3 ml -559 ml -152 ml -420 ml -950 ml Intake Oral 240 ml 480 ml 360 ml 360 ml 480 ml IV Total 536 ml 467 ml 581 ml 138 ml Output Urine Total 500 ml 900 ml 1500 ml 600 ml 900 ml 950 ml Drainage Total 0 ml 50 ml 0 ml 50 ml # Bowel Movements 0 0 0 0 Result Diagram: 11/12/1642011/12/16420 Objective Remarks GENERAL: This is a well-nourished, well-developed patient, in no apparent distress. CARDIOVASCULAR: Regular rate and rhythm without murmurs, gallops, or rubs. RESPIRATORY: Clear to auscultation. Breath sounds equal bilaterally. No wheezes , rales, or rhonchi. GASTROINTESTINAL: Abdomen soft, non-tender, nondistended. Normal active bowel sounds MUSCULOSKELETAL: b/l amputation AKA, right stump in gauze NEURO: Alert & Oriented x4 to person, place, time, situation. Moves all ext x4 A/P Problem List: (1) Amputation stump infection ICD Code: T87.40 Status: Acute (2) Dehydration ICD Code: E86.0 Status: Acute (3) HTN (hypertension) ICD Code: I10 Status: Acute Assessment and Plan 11/12: Continue current care plan for wound VAC change tomorrow by the surgeon A/P: - Stump Infection: s/p Right AKA 09/26/[address] Rowley for Wet Gangrene, now w / stump infection, +foul-smelling, necrotic tissue and wound dehiscence. S/p Wound/Blood Cultures in ER, in addition to Vanc/Cipro/Flagyl. Will follow up cultures, continue w/ IV Abx. Dr. Rowley consulted s/p stump debridement, IVF , analgesics/antiemetics as needed. wbc normalizing - Dehydration w hponatremia 131-129 GFR 78, BUN/Creatinine normal. Status post iv fluid, still sustained around 129-131 possibly be up with pneumonia, he is completely nonsymptomatic - HTN: Controlled resume medication monitor blood pressure -anemia suspect chronic vs post op , monitor , transfuse below 8 , - DVT Prophylaxis: Mechanical contraindication secondary to bilateral amputations, Pharmacologic heparin once ok with sx Carmen Park MD Nov 12, 2016 17:09
[2016-11-12 20:00] VITALS: BP 151/84; PULSE 78; RESP 20; TEMP 97.8; O2SAT 97
[2016-11-12] MEDS: ATORVASTATIN 40 MG TAB PO SCH (20:59)
[2016-11-13] VITALS: BP 153/82; PULSE 73; RESP 20; TEMP 97.4; O2SAT 98
[2016-11-13] MEDS: metroNIDAZOLE 500 MG INJ 100 ML IV SCH ×3 (01:29→16:06)
[2016-11-13] MEDS: HYDROmorphone HCL 2 MG TAB PO PRN ×3 (01:29→19:43)
[2016-11-13] MEDS: CIPROFLOXACIN 400 MG PREMIX 200 ML IV SCH ×2 (05:50→17:22)
[2016-11-13] MEDS ORDERED: PHARMACY ORDERED LAB ONE (07:45)
[2016-11-13 08:00] VITALS: BP 165/89; PULSE 75; RESP 18; TEMP 98; O2SAT 98
[2016-11-13] MEDS: METOPROLOL TARTRATE 25 MG TAB PO SCH ×2 (08:29→19:42)
[2016-11-13] MEDS: PANTOPRAZOLE SOD 40 MG DELAYED RELEASE TAB PO SCH (08:29)
[2016-11-13] MEDS: LISINOPRIL 20 MG TAB PO SCH ×2 (08:29→19:42)
[2016-11-13] MEDS: SODIUM CHLORIDE 0.9% FLUSH 10 ML FLUSH IV FLUSH SCH ×2 (08:30→19:43)
[2016-11-13] MEDS: MORPHINE SULFATE 4 MG/ML INJ IV PRN ×3 (08:31→22:19)
[2016-11-13] MEDS: DOCUSATE SODIUM 50 MG/SENNA 8.6 MG TAB PO SCH ×2 (09:00→19:42)
[2016-11-13] MEDS: VANCOMYCIN INJ 1,250 MG in SODIUM CHLOR 0.9% 250 ML INJ 250 ML IV SCH ×2 (10:23→19:43)
[2016-11-13 12:00] VITALS: BP 140/86; PULSE 75; RESP 18; TEMP 96.7; O2SAT 98
--- NOTE | 2016-11-13 13:27 | PD.VS.PN ---
Subjective POD #: 3 Procedure(s): R BKA debridement Subjective/Hospital Course Pt sitting in bed alert w/o complaints Pain controlled Pt appears comfortable Wound vac dressing changed Objective Vitals/I&O Date Time Temp Pulse Resp B/P Pulse Ox O2 Delivery O2 Flow Rate FiO2 11/13/16 12:00 96.7 75 18 140/86 98 11/13/16 08:00 98.0 75 18 165/89 98 11/13/16 03:13 18 11/13/16 01:26 18 11/13/16 00:00 97.4 73 20 153/82 98 11/12/16 20:00 97.8 78 20 151/84 97 11/12/16 16:00 97.9 77 18 149/80 96 11/13/16 11/13/16 11/13/16 07:00 15:00 23:00 Intake Total 340 ml Output Total 375 ml Balance -35 ml Exam: GENERAL: A&OX3,NAD,GCS 15, pleasant 51/M SKIN: Warm and dry/ Red tissue present to right amputation site with white exudate/mild non granulated tissue present at proximal/lateral end near incision line/ No swelling or odor present RESPIRATORY: BS CTA GASTROINTESTINAL: Abdomen soft, non-tender, nondistended. MUSCULOSKELETAL: No cyanosis, or edema. CARDIOVASCULAR: RRR w/o M/G/R Laboratory Laboratory Tests Test 11/13/16 07:50 Vancomycin Level Trough 17.1 Date/Time Procedure Status Source Growth 11/09/16 17:00 Gram Stain - Final Resulted Wound Leg 11/09/16 17:00 Wound Culture - Preliminary Resulted S. Aureus Mrsa Enterococcus Faecalis Fungus Species 11/09/16 16:55 Aerobic Blood Culture - Preliminary Resulted Blood Peripheral NO GROWTH IN 4 DAYS 11/09/16 16:55 Anaerobic Blood Culture - Preliminary Resulted Blood Peripheral NO GROWTH IN 4 DAYS Assessment and Plan Assessment: (1) Amputation stump infection Status: Acute Plan Plan Removed Wound vac today Ordered Veraflow wound vac to RLE Continue pain managment Roxanne DUMONT [facility]/[employer] [phone] Roxanne Saldaña Nov 13, 2016 13:27
--- NOTE | 2016-11-13 14:58 | HHI.PR ---
Subjective Remarks patient resting comfortably in bed, wound VAC has been removed today possibly reinsert later, surgery following, no fever or chills Objective Vitals Vital Signs Date Time Temp Pulse Resp B/P Pulse Ox O2 Delivery O2 Flow Rate FiO2 11/13/16 12:00 96.7 75 18 140/86 98 11/13/16 08:00 98.0 75 18 165/89 98 11/13/16 03:13 18 11/13/16 01:26 18 11/13/16 00:00 97.4 73 20 153/82 98 11/12/16 20:00 97.8 78 20 151/84 97 11/12/16 16:00 97.9 77 18 149/80 96 I/O 11/12/16 11/12/16 11/12/16 11/13/16 11/13/16 11/13/16 07:00 15:00 23:00 07:00 15:00 23:00 Intake Total 498 ml 480 ml 1363 ml 340 ml 548 ml Output Total 650 ml 900 ml 1350 ml 375 ml Balance -152 ml -420 ml 13 ml -35 ml 548 ml Intake Oral 360 ml 480 ml 480 ml 240 ml IV Total 138 ml 883 ml 100 ml 548 ml Output Urine Total 600 ml 900 ml 1350 ml 350 ml Drainage Total 50 ml 0 ml 25 ml # Bowel Movements 0 0 0 0 Result Diagram: 11/12/1642011/12/16420 Objective Remarks GENERAL: This is a well-nourished, well-developed patient, in no apparent distress. CARDIOVASCULAR: Regular rate and rhythm without murmurs, gallops, or rubs. RESPIRATORY: Clear to auscultation. Breath sounds equal bilaterally. No wheezes , rales, or rhonchi. GASTROINTESTINAL: Abdomen soft, non-tender, nondistended. Normal active bowel sounds MUSCULOSKELETAL: b/l amputation AKA, right stump in gauze NEURO: Alert & Oriented x4 to person, place, time, situation. Moves all ext x4 A/P Problem List: (1) Amputation stump infection ICD Code: T87.40 Status: Acute (2) Dehydration ICD Code: E86.0 Status: Acute (3) HTN (hypertension) ICD Code: I10 Status: Acute Assessment and Plan 11/13: wound VAC has been removed today possibly reinsert later, surgery following, no fever or chills, A/P: - Stump Infection: s/p Right AKA 09/26/[address] Rowley for Wet Gangrene, now w / stump infection, +foul-smelling, necrotic tissue and wound dehiscence. S/p Wound/Blood Cultures in ER, in addition to Vanc/Cipro/Flagyl. Will follow up cultures, continue w/ IV Abx. Dr. Rowley consulted s/p stump debridement, IVF , analgesics/antiemetics as needed. wbc normalizing - Dehydration w hponatremia continue monitoring BMP,BUN/Creatinine normal. Status post iv fluid, still sustained around 129-131 possibly be up with pneumonia, he is completely nonsymptomatic - HTN: Controlled resume medication monitor blood pressure -anemia suspect chronic vs post op , monitor , transfuse below 8 , - DVT Prophylaxis: Mechanical contraindication secondary to bilateral amputations, Pharmacologic heparin once ok with sx Carmen Park MD Nov 13, 2016 14:58
[2016-11-13 16:00] VITALS: BP 139/84; PULSE 75; RESP 18; TEMP 97.2; O2SAT 99
[2016-11-13] MEDS: ATORVASTATIN 40 MG TAB PO SCH (19:43)
[2016-11-13 20:00] VITALS: BP 110/71; PULSE 69; RESP 20; TEMP 96.3; O2SAT 95
[2016-11-14] VITALS: BP 142/84; PULSE 74; RESP 19; TEMP 96.4; O2SAT 98
[2016-11-14] MEDS: HYDROmorphone HCL 2 MG TAB PO PRN ×4 (00:12→17:14)
[2016-11-14] MEDS: metroNIDAZOLE 500 MG INJ 100 ML IV SCH ×3 (00:12→16:29)
[2016-11-14 05:18] LABS: AUTOMATED NEUTROPHIL # 8.3 TH/MM3 (1.8-7.7); BASOPHIL % 0.4 % (0.0-2.0); EOSINOPHIL # 0.3 TH/MM3 (0-0.4); EOSINOPHIL % 2.5 % (0.0-4.0); HEMATOCRIT 25.5 % (39.0-51.0); HEMO FLAGS DIFF FINAL; LYMPH % 23.2 % (9.0-44.0); MEAN CELL VOLUME 77.8 FL (80.0-100.0); MEAN CORPUSCULAR HEMOGLOBIN 25.8 PG (27.0-34.0); MEAN CORPUSCULAR HGB CONC 33.1 % (32.0-36.0); MONO % 10.1 % (0.0-8.0); NEUT % 63.8 % (16.0-70.0); PLATELET COUNT 318 TH/MM3 (150-450); RED BLOOD COUNT 3.28 MIL/MM3 (4.50-5.90); RED CELL DISTRIBUTION WIDTH 15.3 % (11.6-17.2); WHITE BLOOD COUNT 13.1 TH/MM3 (4.0-11.0)
[2016-11-14 05:20] LABS: BICARBONATE 23.9 MEQ/L (21.0-32.0); POTASSIUM 3.7 MEQ/L (3.5-5.1)
[2016-11-14] MEDS: CIPROFLOXACIN 400 MG PREMIX 200 ML IV SCH (06:10)
[2016-11-14] MEDS: PANTOPRAZOLE SOD 40 MG DELAYED RELEASE TAB PO SCH (07:39)
[2016-11-14] MEDS: METOPROLOL TARTRATE 25 MG TAB PO SCH ×2 (07:39→21:52)
[2016-11-14] MEDS: LISINOPRIL 20 MG TAB PO SCH ×2 (07:40→21:52)
[2016-11-14] MEDS: DOCUSATE SODIUM 50 MG/SENNA 8.6 MG TAB PO SCH ×2 (07:46→21:00)
[2016-11-14] MEDS: SODIUM CHLORIDE 0.9% FLUSH 10 ML FLUSH IV FLUSH SCH ×2 (07:47→21:51)
[2016-11-14 08:00] VITALS: BP 172/97; PULSE 84; RESP 19; TEMP 96.7; O2SAT 98
[2016-11-14] MEDS: VANCOMYCIN INJ 1,250 MG in SODIUM CHLOR 0.9% 250 ML INJ 250 ML IV SCH ×2 (08:59→21:51)
--- NOTE | 2016-11-14 09:12 | PD.WCN.NOT ---
Wound Consult Description: Right BKA Neg Pressure Wound Therapy Wound Location Wound Location: Right BKA Wound Description Wound bed appearance: Late entry from 11/13/2016 at 1200: Wound bed presents with ~20% adipose tissue , ~60% red granulation tissue and ~20% yellow/ brown slough. Wound noted with minimal sanguinous drainage without odor. Periwound appearance: Other (Periwound noted with some erythema between 8 and 11 o'clock) Additonal Information Late entry from 11/13/2016 at 1200:Patient seen with with Roxanne DUMONT Vascular surgery on . Removed VAC dressing in place to reveal wound to R BKA. Wound was cleansed with normal saline. Placed normal saline wet to dry dressing on patient for today Roxanne DUMONT to order Veraflow wound VAC dressing to be placed tomorrow. [facility] Nov 14, 2016 09:12
--- NOTE | 2016-11-14 10:38 | PD.VS.PN ---
Subjective POD #: 4 Procedure(s): R BKA debridement Subjective/Hospital Course Pt sitting in bed alert w/o complaints Pain controlled Pt appears comfortable W/D dressing to Right LE intact Objective Vitals/I&O Date Time Temp Pulse Resp B/P Pulse Ox O2 Delivery O2 Flow Rate FiO2 11/14/16 08:00 96.7 84 19 172/97 98 11/14/16 07:13 18 11/14/16 00:00 96.4 74 19 142/84 98 11/13/16 20:00 96.3 69 20 110/71 95 11/13/16 16:00 97.2 75 18 139/84 99 11/13/16 12:00 96.7 75 18 140/86 98 11/14/16 11/14/16 11/14/16 07:00 15:00 23:00 Intake Total 360 ml Output Total 1800 ml Balance -1440 ml Exam: GENERAL: A&OX3,NAD,GCS 15, pleasant 53/M SKIN: Warm and dry/ Red tissue present to right amputation site with white exudate/mild non granulated tissue present at proximal/lateral end near incision line/ No swelling or odor present RESPIRATORY: BS CTA GASTROINTESTINAL: Abdomen soft, non-tender, nondistended. MUSCULOSKELETAL: No cyanosis, or edema. CARDIOVASCULAR: RRR w/o M/G/R Laboratory Laboratory Tests Test 11/14/16 04:31 White Blood Count 13.1 Red Blood Count 3.28 Hemoglobin 8.4 Hematocrit 25.5 Mean Corpuscular Volume 77.8 Mean Corpuscular Hemoglobin 25.8 Mean Corpuscular Hemoglobin 33.1 Concent Red Cell Distribution Width 15.3 Platelet Count 318 Mean Platelet Volume 7.0 Neutrophils (%) (Auto) 63.8 Lymphocytes (%) (Auto) 23.2 Monocytes (%) (Auto) 10.1 Eosinophils (%) (Auto) 2.5 Basophils (%) (Auto) 0.4 Neutrophils # (Auto) 8.3 Lymphocytes # (Auto) 3.0 Monocytes # (Auto) 1.3 Eosinophils # (Auto) 0.3 Basophils # (Auto) 0.0 CBC Comment DIFF FINAL Differential Comment Sodium Level 131 Potassium Level 3.7 Chloride Level 97 Carbon Dioxide Level 23.9 Anion Gap 10 Blood Urea Nitrogen 9 Creatinine 0.74 Estimat Glomerular Filtration 111 Rate Random Glucose 136 Calcium Level 8.1 Date/Time Procedure Status Source Growth 11/09/16 17:00 Gram Stain - Final Resulted Wound Leg 11/09/16 17:00 Wound Culture - Preliminary Resulted S. Aureus Mrsa Enterococcus Faecalis Fungus Species 11/09/16 16:55 Aerobic Blood Culture - Preliminary Resulted Blood Peripheral NO GROWTH IN 4 DAYS 11/09/16 16:55 Anaerobic Blood Culture - Preliminary Resulted Blood Peripheral NO GROWTH IN 4 DAYS Assessment and Plan Assessment: (1) Amputation stump infection Status: Acute Plan Plan Veraflow wound vac to be placed today to RLE Continue pain management Pt Ok for Pharmacologic Heparin for prophylaxis Roxanne DUMONT [facility]/[employer] [phone] Roxanne Saldaña Nov 14, 2016 10:38
[2016-11-14 12:00] VITALS: BP 92/55; PULSE 73; RESP 16; TEMP 95.8; O2SAT 98
--- NOTE | 2016-11-14 14:10 | HHI.PR ---
Subjective Remarks The patient was resting comfortably in bed. He said he was feeling a little abdominal discomfort because he has not gone to the bathroom in a few days. He said he was drinking prune juice. His leg pain is controlled at this time. He had no other acute complaints. Discussed with nursing. Objective Vitals Vital Signs Date Time Temp Pulse Resp B/P Pulse Ox O2 Delivery O2 Flow Rate FiO2 11/14/16 12:00 95.8 73 16 92/55 98 11/14/16 11:19 18 11/14/16 08:00 96.7 84 19 172/97 98 11/14/16 00:00 96.4 74 19 142/84 98 11/13/16 20:00 96.3 69 20 110/71 95 11/13/16 16:00 97.2 75 18 139/84 99 I/O 11/13/16 11/13/16 11/13/16 11/14/16 11/14/16 11/14/16 07:00 15:00 23:00 07:00 15:00 23:00 Intake Total 340 ml 888 ml 860 ml 360 ml Output Total 375 ml 1000 ml 950 ml 1800 ml Balance -35 ml -112 ml -90 ml -1440 ml Intake Oral 240 ml 340 ml 360 ml 360 ml IV Total 100 ml 548 ml 500 ml Output Urine Total 350 ml 1000 ml 950 ml 1800 ml Drainage Total 25 ml # Bowel Movements 0 0 0 0 Result Diagram: 11/14/1643011/14/16430 Objective Remarks GENERAL: This is a well-nourished, well-developed patient, in no apparent distress. CARDIOVASCULAR: Regular rate and rhythm without murmurs, gallops, or rubs. RESPIRATORY: Clear to auscultation. Breath sounds equal bilaterally. No wheezes , rales, or rhonchi. GASTROINTESTINAL: Abdomen soft, non-tender, nondistended. Normal active bowel sounds. MUSCULOSKELETAL: Bilateral LE amputations. NEURO: Alert & Oriented x4 to person, place, time, situation. No gross neurological deficit. PSYCH: Mood and affect appropriate. Medications and IVs Current Medications Medications (Trade) Dose Ordered Sig/Kaushal Route Start Time Stop Time Status Last Admin Pharmacy Profile Note 0 ml @ 0 mls/hr UNSCH OTHER 11/09/16 19:30 Ciprofloxacin/ Dextrose 200 ml @ 200 mls/hr Q12H IV 11/10/16 06:00 11/14/16 06:10 (Flagyl 500 Mg Inj) 100 ml @ 100 mls/hr Q8H IV 11/10/16 00:00 11/14/16 07:46 (NS Flush) 2 ml UNSCH PRN IV FLUSH 11/09/16 19:30 11/12/16 02:20 (NS Flush) 2 ml BID IV FLUSH 11/09/16 21:00 11/14/16 07:47 (Zofran Inj) 4 mg Q6H PRN IVP 11/09/16 19:30 11/11/16 04:53 (Tylenol) 650 mg Q6H PRN PO 11/09/16 19:30 (Latia-Colace) 1 tab BID PO 11/09/16 21:00 11/14/16 07:46 (Milk Of Magnesia Liq) 30 ml Q12H PRN PO 11/09/16 19:30 11/14/16 07:46 (Senokot) 17.2 mg Q12H PRN PO 11/09/16 19:30 (Dulcolax Supp) 10 mg DAILY PRN RECTAL 11/09/16 19:30 (Lactulose Liq) 30 ml DAILY PRN PO 11/09/16 19:30 (Norvasc) 10 mg DAILY PO 11/10/16 09:00 11/14/16 07:39 (Lipitor) 40 mg HS PO 11/09/16 21:00 11/13/16 19:43 (Prinivil) 20 mg Q12HR PO 11/09/16 21:00 11/14/16 07:40 (Lopressor) 25 mg BID PO 11/09/16 21:00 11/14/16 07:39 (Protonix) 40 mg DAILY PO 11/10/16 09:00 11/14/16 07:39 (Roxicodone) 5 mg Q4H PRN PO 11/10/16 09:15 11/13/16 13:15 (Dilaudid) 2 mg Q4H PRN PO 11/10/16 09:15 11/14/16 10:19 Morphine Sulfate 2 mg 2 mg Q1H PRN IV 11/10/16 09:15 11/13/16 22:19 (Vancomycin Inj/ NS 250 ml Inj) 262.5 ml @ 262.5 mls/ hr Q12H IV 11/11/16 20:00 11/14/16 08:59 A/P Problem List: (1) Amputation stump infection ICD Code: T87.40 Status: Acute (2) Dehydration ICD Code: E86.0 Status: Acute (3) HTN (hypertension) ICD Code: I10 Status: Acute Assessment and Plan Stump Infection 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 Rowley for wet gangrene, now w/ stump infection, + foul-smelling necrotic tissue and wound dehiscence. Dr. Rowley consulted, s/p stump debridement. - Will follow up cultures. - continue w/ IV Abx. - analgesics/antiemetics as needed. - likely to have wound vac placed 11/14. - ID consult requested. Hyponatremia The pt appears euvolemic. - fluid restriction and monitor. HTN Controlled, low at times. - resume home medications with holding parameters and monitor blood pressure. Anemia Suspect chronic vs post op. Appears around baseline. - monitor and transfuse as needed. PPx: Heparin Discharge Planning Awaiting clinical improvement. Harsh Khan DO Nov 14, 2016 14:10
[2016-11-14] MEDS: MORPHINE SULFATE 4 MG/ML INJ IV PRN ×2 (14:33→21:51)
[2016-11-14] MEDS: HEPARIN SODIUM - SQ 10,000 UNITS/ML VIAL SQ SCH ×2 (14:34→21:52)
[2016-11-14 16:00] VITALS: BP 127/88; PULSE 87; RESP 18; TEMP 96.2; O2SAT 97
--- NOTE | 2016-11-14 16:29 | PD.CONS ---
History of Present Illness Service Infectious disease Consult Requested By Dr Clementina Khan Reason for Consult Evaluate patient with infected stump, positive blood culture Primary Care Physician No Primary Care Physician Diagnoses: History of Present Illness Patient seen and examined. Records reviewed. Patient is a 51-year-old male, presented to the emergency room for further evaluation of his right BKA stump. Patient underwent right BKA September 2016, was seen by his vascular surgeon, and he was noted to have redness, purulent drainage, and necrosis of the stump. Patient underwent surgery and had debridement of the skin and subcutaneous tissue and muscle, and the wound was left open and has had a wound VAC dressing in place. There was a wound culture done in the emergency room which is reported as growing MRSA, enterococcus, and yeast. There was no intraoperative cultures sent. Patient has not had any fever. He is main complaint is pain at the surgical site. He has no other complaints. Patient has been getting IV vancomycin, Flagyl, and Cipro. Infectious disease consultation has been requested to evaluate the patient. Review of Systems Constitutional: DENIES: Fever, Chills, Night Sweats Eyes: DENIES: Eye pain Ears, nose, mouth, throat: DENIES: Nasal discharge, Oral lesions, Throat pain, Sinus Pain Respiratory: DENIES: Cough, Sputum production Cardiovascular: DENIES: Chest pain, Palpitations Gastrointestinal: COMPLAINS OF: Constipation, DENIES: Abdominal pain, Diarrhea , Nausea, Vomiting Genitourinary: DENIES: Dysuria Musculoskeletal: COMPLAINS OF: Muscle aches Integumentary: DENIES: Rash Neurologic: DENIES: Headache Psychiatric: DENIES: Hallucinations Past Family Social History Allergies: Coded Allergies: Penicillin (Verified Allergy, Unknown, 10/17/16) *MDRO Multi-Drug Resistant Organism (Verified Adverse Reaction, Unknown, ) MRSA (leg)-11/09/16 Past Medical History Hypertension Borderline DM Obesity Past Surgical History L AKA R BKA Active Ordered Medications Acetaminophen Norvasc Aspirin Lipitor Calcium carbonate Cipro Heparin Dilaudid Lactulose Prinivil MOM Lopressor Flagyl Morphine Zofran Oxycodone Protonix Latia-Colace Senokot Vancomycin Social History (+) smoking (+) ETOH NO illicit drugs Physical Exam Vital Signs Vital Signs Date Time Temp Pulse Resp B/P Pulse Ox O2 Delivery O2 Flow Rate FiO2 11/14/16 12:00 95.8 73 16 92/55 98 11/14/16 11:19 18 11/14/16 08:00 96.7 84 19 172/97 98 11/14/16 00:00 96.4 74 19 142/84 98 11/13/16 20:00 96.3 69 20 110/71 95 Physical Exam GENERAL: Patient is a well-nourished, well-developed CM, awake and alert, not in respiratory distress. SKIN: Warm and dry. No generalized rash, no ecchymoses and no evidence of embolic lesions. HEAD: Atraumatic. Normocephalic. No temporal wasting, or tenderness. EYES: [place] conjunctiva. No petechia or hemorrhage. Pupils equal, round and reactive to light. Extraocular movements full and intact. No scleral icterus. No injection or drainage. EARS, NOSE AND THROAT: Nose without bleeding or purulent nasal discharge. Mucous membranes pink and moist. No oral lesions noted. No exudate. No oral thrush. NECK: Trachea midline. Supple and not tender, no meningeal signs CARDIOVASCULAR: Regular rate and rhythm. No murmurs, rubs or gallops heard RESPIRATORY: Clear to auscultation. Breath sounds equal bilaterally. No rales , wheezing or rhonchi ABDOMEN: Soft, non-tender, nondistended. Bowel sounds present and normoactive. No guarding. No rebound. No organomegaly. EXTREMITIES: S/P L AKA well healed stump. S/P R BKA, has wound vac derssing in place, with no surrounding cellulitis around the open wound, no lymphangitis present. NEUROLOGICAL: Awake and alert. Cranial nerves grossly intact. Motor grossly within normal limits. PSYCHIATRIC: Normal affect, calm and cooperative. LINE: No evidence of infection Laboratory Laboratory Tests Test 11/14/16 04:31 White Blood Count 13.1 Red Blood Count 3.28 Hemoglobin 8.4 Hematocrit 25.5 Mean Corpuscular Volume 77.8 Mean Corpuscular Hemoglobin 25.8 Mean Corpuscular Hemoglobin 33.1 Concent Red Cell Distribution Width 15.3 Platelet Count 318 Mean Platelet Volume 7.0 Neutrophils (%) (Auto) 63.8 Lymphocytes (%) (Auto) 23.2 Monocytes (%) (Auto) 10.1 Eosinophils (%) (Auto) 2.5 Basophils (%) (Auto) 0.4 Neutrophils # (Auto) 8.3 Lymphocytes # (Auto) 3.0 Monocytes # (Auto) 1.3 Eosinophils # (Auto) 0.3 Basophils # (Auto) 0.0 CBC Comment DIFF FINAL Differential Comment Sodium Level 131 Potassium Level 3.7 Chloride Level 97 Carbon Dioxide Level 23.9 Anion Gap 10 Blood Urea Nitrogen 9 Creatinine 0.74 Estimat Glomerular Filtration 111 Rate Random Glucose 136 Calcium Level 8.1 Date/Time Procedure Status Source Growth 11/09/16 17:00 Gram Stain - Final Resulted Wound Leg 11/09/16 17:00 Wound Culture - Preliminary Resulted S. Aureus Mrsa Enterococcus Faecalis Yeast-Id To Follow 11/09/16 17:00 - Final Complete Other 11/09/16 16:55 Aerobic Blood Culture - Final Complete Blood Peripheral NO GROWTH IN 5 DAYS 11/09/16 16:55 Anaerobic Blood Culture - Final Complete Blood Peripheral NO GROWTH IN 5 DAYS Result Diagram: 11/14/16 0431 11/14/16 0431 Assessment and Plan Assessment and Plan IMPRESSION R AKA stump necrosis/wound infection, S/P debridement, has open wound wound with wound vac in place - cellulitis has resolved - C/S preop with MRSA, Enterococcus and yeast - no intraop C/S S/P L AKA DM RECOMMENDATION Continue Vanco for now Stop Flagyl and Cipro Will try to examine the stump with next wound vac change Will D/W vascular surgery Will likely not need a long course of Abx sice the wound has been debrided well and infected necrotic tissue has been removed I will follow along with you Thank you for this consultation Discussed Condition With D/W RN Explained plan to the patient Salina Leyva MD Nov 14, 2016 16:29
--- NOTE | 2016-11-14 16:58 | PD.WCN.NOT ---
Wound Consult Description: Right BKA Neg Pressure Wound Therapy Wound Location Wound Location: Right BKA Wound Description Length: 7 Width: 19 Depth: ~6 Wound bed appearance: Wound bed presents with ~20% adipose tissue, ~60% red granulation tissue and ~ 20% yellow/ brown slough. Wound noted with minimal sanguinous drainage without odor. Periwound appearance: Other (Erythema from 10 to 2 oclock that appears improved from previous assessment) Settings Suction: 125 mmHg, Intermittent (Veraflow on for 2 hours and off for 10 minutes for instill period) Intensity: Low Other Information: Windowpaned, Mushroomed Foam type: Black Number of pieces: 2 Additonal Information Patient seen on 7 for wound VAC veralfow placement.Removed wet to dry dressing in place to reveal wound to R BKA stump.Wound was cleansed with wound cleanser and window paned using VAC drape around wound margins. 2 pieces black granufoam were coiled into wound bed and secured with VAC drape.Hole was cut in drape to expose granufoam at 12 o'clock, placed mushroom cap of granufoam with Sensi Trac pad over exposed granufoam.Using fill assist, VAC machine instilled 24 ml of normal saline in wound bed. Wound will soak for 10 minutes, then suction for 2 hours. Wound VAC suctioning with low intermittent suction due to instill period. Wound VAC is working properly with out leaks. Next wound VAC change to be done. 11/16/16. Su Lilly [facility] Nov 14, 2016 16:58
[2016-11-14 18:16] LABS: HEMOGLOBIN A1a 0.9 %; HEMOGLOBIN A1b 0.8 %; HEMOGLOBIN LA1C 1.9 %; HEMOGLOBIN P3 3.8 %
[2016-11-14 20:35] VITALS: BP 138/84; PULSE 87; RESP 18; TEMP 97.9; O2SAT 97
[2016-11-14] MEDS: ATORVASTATIN 40 MG TAB PO SCH (21:52)
[2016-11-15 00:14] VITALS: BP 146/80; PULSE 77; RESP 20; TEMP 98.6; O2SAT 97
[2016-11-15] MEDS: HYDROmorphone HCL 2 MG TAB PO PRN ×4 (04:06→21:26)
[2016-11-15] MEDS: HEPARIN SODIUM - SQ 10,000 UNITS/ML VIAL SQ SCH ×3 (05:28→21:10)
[2016-11-15] MEDS: MORPHINE SULFATE 4 MG/ML INJ IV PRN ×4 (05:28→22:33)
[2016-11-15 06:24] LABS: HEMATOCRIT 25.4 % (39.0-51.0); MEAN CORPUSCULAR HGB CONC 33.8 % (32.0-36.0); PLATELET COUNT 318 TH/MM3 (150-450); RED BLOOD COUNT 3.29 MIL/MM3 (4.50-5.90); RED CELL DISTRIBUTION WIDTH 15.2 % (11.6-17.2); REVIEW FLAG FINAL; WHITE BLOOD COUNT 13.1 TH/MM3 (4.0-11.0)
[2016-11-15 06:44] LABS: BICARBONATE 27.8 MEQ/L (21.0-32.0); MAGNESIUM 1.8 MG/DL (1.5-2.5); POTASSIUM 3.7 MEQ/L (3.5-5.1)
[2016-11-15 08:00] VITALS: BP 165/85; PULSE 79; RESP 18; TEMP 98; O2SAT 97
[2016-11-15] MEDS: PANTOPRAZOLE SOD 40 MG DELAYED RELEASE TAB PO SCH (08:09)
[2016-11-15] MEDS: METOPROLOL TARTRATE 25 MG TAB PO SCH ×2 (08:09→21:10)
[2016-11-15] MEDS: LISINOPRIL 20 MG TAB PO SCH ×2 (08:09→21:10)
[2016-11-15] MEDS: DOCUSATE SODIUM 50 MG/SENNA 8.6 MG TAB PO SCH ×2 (08:10→21:00)
[2016-11-15] MEDS: SODIUM CHLORIDE 0.9% FLUSH 10 ML FLUSH IV FLUSH SCH ×2 (08:10→21:10)
[2016-11-15] MEDS: VANCOMYCIN INJ 1,250 MG in SODIUM CHLOR 0.9% 250 ML INJ 250 ML IV SCH ×2 (08:10→21:10)
--- NOTE | 2016-11-15 09:23 | PD.VS.PN ---
Subjective POD #: 5 Procedure(s): R BKA debridement Subjective/Hospital Course Pt sitting in bed alert w/o complaints Pain controlled Pt appears comfortable Veraflow Wound vac intact to RLE Objective Vitals/I&O Date Time Temp Pulse Resp B/P Pulse Ox O2 Delivery O2 Flow Rate FiO2 11/15/16 08:00 98.0 79 18 165/85 97 11/15/16 00:14 98.6 77 20 146/80 97 11/14/16 20:35 97.9 87 18 138/84 97 11/14/16 18:14 18 11/14/16 16:00 96.2 87 18 127/88 97 11/14/16 14:38 18 11/14/16 12:00 95.8 73 16 92/55 98 11/15/16 11/15/16 11/15/16 07:00 15:00 23:00 Intake Total 233 ml Output Total 100 ml Balance 133 ml Exam: GENERAL: Pt Alert in nad, GCS 15 SKIN: Warm and dry. CARDIOVASCULAR: RRR, +S1,S2 RESPIRATORY: BS CTA MUSCULOSKELETAL: No cyanosis, or edema. Laboratory Laboratory Tests Test 11/15/16 04:42 White Blood Count 13.1 Red Blood Count 3.29 Hemoglobin 8.6 Hematocrit 25.4 Mean Corpuscular Volume 77.0 Mean Corpuscular Hemoglobin 26.0 Mean Corpuscular Hemoglobin 33.8 Concent Red Cell Distribution Width 15.2 Platelet Count 318 Mean Platelet Volume 7.2 Sodium Level 132 Potassium Level 3.7 Chloride Level 98 Carbon Dioxide Level 27.8 Anion Gap 6 Blood Urea Nitrogen 12 Creatinine 1.18 Estimat Glomerular Filtration 65 Rate Random Glucose 131 Calcium Level 8.1 Magnesium Level 1.8 Assessment and Plan Assessment: (1) Amputation stump infection Status: Acute Plan Plan Wound vac dressing to be changed tomorrow am Continue pain management Pt Ok for Pharmacologic Heparin for prophylaxis Roxanne DUMONT [facility]/[place] [phone] Roxanne Saldaña Nov 15, 2016 09:23
[2016-11-15 12:00] VITALS: BP 155/86; PULSE 63; RESP 18; TEMP 95.9; O2SAT 97
--- NOTE | 2016-11-15 12:09 | HHI.PR ---
Subjective Remarks The pt was feeling well. He had a few problems with the wound vac but those were straightened out. He said the pain was well controlled. He had a bowel movement. No acute complaints. Objective Vitals Vital Signs Date Time Temp Pulse Resp B/P Pulse Ox O2 Delivery O2 Flow Rate FiO2 11/15/16 08:00 98.0 79 18 165/85 97 11/15/16 00:14 98.6 77 20 146/80 97 11/14/16 20:35 97.9 87 18 138/84 97 11/14/16 18:14 18 11/14/16 16:00 96.2 87 18 127/88 97 11/14/16 14:38 18 I/O 11/14/16 11/14/16 11/14/16 11/15/16 11/15/16 11/15/16 07:00 15:00 23:00 07:00 15:00 23:00 Intake Total 360 ml 340 ml 17 ml 233 ml Output Total 1800 ml 1000 ml 430 ml 100 ml Balance -1440 ml -660 ml -413 ml 133 ml Intake Oral 360 ml 340 ml IV Total 17 ml 233 ml Output Urine Total 1800 ml 1000 ml 380 ml Drainage Total 50 ml 100 ml # Bowel Movements 0 1 1 Result Diagram: 11/15/1644111/15/16441 Objective Remarks GENERAL: This is a well-nourished, well-developed patient, in no apparent distress. CARDIOVASCULAR: Regular rate and rhythm without murmurs, gallops, or rubs. RESPIRATORY: Clear to auscultation. Breath sounds equal bilaterally. No wheezes , rales, or rhonchi. GASTROINTESTINAL: Abdomen soft, non-tender, nondistended. Normal active bowel sounds. MUSCULOSKELETAL: Bilateral LE amputations. Wound vac in place. NEURO: Alert & Oriented x4 to person, place, time, situation. No gross neurological deficit. PSYCH: Mood and affect appropriate. Medications and IVs Current Medications Medications (Trade) Dose Ordered Sig/Kaushal Route Start Time Stop Time Status Last Admin (Vancomycin Consult Pharmacy) 0 ml @ 0 mls/hr UNSCH OTHER 11/09/16 19:30 (NS Flush) 2 ml UNSCH PRN IV FLUSH 11/09/16 19:30 11/12/16 02:20 (NS Flush) 2 ml BID IV FLUSH 11/09/16 21:00 11/15/16 08:10 (Zofran Inj) 4 mg Q6H PRN IVP 11/09/16 19:30 11/11/16 04:53 (Tylenol) 650 mg Q6H PRN PO 11/09/16 19:30 (Latia-Colace) 1 tab BID PO 11/09/16 21:00 11/14/16 07:46 (Milk Of Magnesia Liq) 30 ml Q12H PRN PO 11/09/16 19:30 11/14/16 07:46 (Senokot) 17.2 mg Q12H PRN PO 11/09/16 19:30 (Dulcolax Supp) 10 mg DAILY PRN RECTAL 11/09/16 19:30 (Lactulose Liq) 30 ml DAILY PRN PO 11/09/16 19:30 (Norvasc) 10 mg DAILY PO 11/10/16 09:00 11/15/16 08:10 (Lipitor) 40 mg HS PO 11/09/16 21:00 11/14/16 21:52 (Prinivil) 20 mg Q12HR PO 11/09/16 21:00 11/15/16 08:09 (Lopressor) 25 mg BID PO 11/09/16 21:00 11/15/16 08:09 (Protonix) 40 mg DAILY PO 11/10/16 09:00 11/15/16 08:09 (Roxicodone) 5 mg Q4H PRN PO 11/10/16 09:15 11/13/16 13:15 (Dilaudid) 2 mg Q4H PRN PO 11/10/16 09:15 11/15/16 08:20 Morphine Sulfate 2 mg 2 mg Q1H PRN IV 11/10/16 09:15 11/15/16 09:34 (Vancomycin Inj/ NS 250 ml Inj) 262.5 ml @ 262.5 mls/ hr Q12H IV 11/11/16 20:00 11/15/16 08:10 (Heparin Inj) 5,000 units Q8HR SQ 11/14/16 14:15 11/15/16 05:28 A/P Problem List: (1) Amputation stump infection ICD Code: T87.40 Status: Acute (2) Dehydration ICD Code: E86.0 Status: Acute (3) HTN (hypertension) ICD Code: I10 Status: Acute Assessment and Plan Stump Infection 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 Rowley for wet gangrene, now w/ stump infection, + foul-smelling necrotic tissue and wound dehiscence. Dr. Rowley consulted, s/p stump debridement. MRSA, enterococcus and yeast growing from wound. ID consult appreciated. - continue w/ IV Abx per infectious disease. - analgesics/antiemetics as needed. - wound vac per surgery. Hyponatremia The pt appears euvolemic. Improved. - continue fluid restriction and monitor. HTN Controlled. - resume home medications with holding parameters and monitor blood pressure. Anemia Suspect chronic vs post op. Appears around baseline. - monitor and transfuse as needed. PPx: Heparin Discharge Planning Awaiting clinical improvement. Harsh Khan DO Nov 15, 2016 12:09
[2016-11-15 16:00] VITALS: BP 158/86; PULSE 76; RESP 18; TEMP 97.4; O2SAT 100
[2016-11-15 20:00] VITALS: BP 88/52; PULSE 82; RESP 18; TEMP 97.6; O2SAT 97
[2016-11-15 20:40] VITALS: BP 149/88; PULSE 83
[2016-11-15] MEDS: ATORVASTATIN 40 MG TAB PO SCH (21:10)
[2016-11-16 00:55] VITALS: BP 146/82; PULSE 79; RESP 18; TEMP 98.9; O2SAT 98
[2016-11-16] MEDS: HYDROmorphone HCL 2 MG TAB PO PRN ×2 (01:51→21:49)
[2016-11-16] MEDS: MORPHINE SULFATE 4 MG/ML INJ IV PRN ×3 (03:26→22:52)
[2016-11-16 06:17] LABS: HEMATOCRIT 24.7 % (39.0-51.0); MEAN CELL VOLUME 77.9 FL (80.0-100.0); MEAN CORPUSCULAR HGB CONC 33.4 % (32.0-36.0); PLATELET COUNT 257 TH/MM3 (150-450); RED BLOOD COUNT 3.18 MIL/MM3 (4.50-5.90); RED CELL DISTRIBUTION WIDTH 15.6 % (11.6-17.2); REVIEW FLAG FINAL; WHITE BLOOD COUNT 14.7 TH/MM3 (4.0-11.0)
[2016-11-16] MEDS: HEPARIN SODIUM - SQ 10,000 UNITS/ML VIAL SQ SCH ×3 (06:23→21:50)
[2016-11-16 06:44] LABS: BICARBONATE 25.6 MEQ/L (21.0-32.0); MAGNESIUM 1.8 MG/DL (1.5-2.5); POTASSIUM 3.9 MEQ/L (3.5-5.1)
[2016-11-16 08:00] VITALS: BP 154/83; PULSE 78; RESP 18; TEMP 97.8; O2SAT 97
[2016-11-16] MEDS: VANCOMYCIN INJ 1,250 MG in SODIUM CHLOR 0.9% 250 ML INJ 250 ML IV SCH (08:00)
[2016-11-16] MEDS: DOCUSATE SODIUM 50 MG/SENNA 8.6 MG TAB PO SCH ×2 (09:00→21:00)
[2016-11-16] MEDS: SODIUM CHLORIDE 0.9% FLUSH 10 ML FLUSH IV FLUSH SCH ×2 (09:00→21:00)
--- NOTE | 2016-11-16 10:52 | PD.WCN.NOT ---
Wound Consult Description: Right BKA Neg Pressure Wound Therapy Wound Location Wound Location: Right BKA Wound Description Length: 7 Width: ~18 Depth: ~4 Wound bed appearance: Wound bed presents with ~70% red granulation tissue and ~30% yellow necrotic tissue.Exposed tendon noted at 12 o'clock in center of wound and at 11 o'clock close to wound margin. Wound noted with minimal sanguinous drainage without odor.Wound appears in improved since previous assessment and appears to have decreased in size. Doctor Feezor in room during Veraflow VAC dressing removal and wants to continue with Vera flow VAC for now. Will reassess for treatment next VAC change. Periwound appearance: Other (Periwound erythema present with previous VAC dressing change has improved and appears to be resolving.) Settings Suction: 125 mmHg, Intermittent (Veraflow on for 2 hours and off for 10 minutes for instill period) Intensity: Low Other Information: Windowpaned, Mushroomed Foam type: Black Number of pieces: 3 Additonal Information Patient seen on 7 for wound VAC veralfow placement.Removed VAC dressing in place to reveal wound to R BKA stump.Wound was cleansed with wound cleanser and window paned using VAC drape around wound margins. 2 pieces black granufoam were coiled into wound bed from medium veraflow dressing kit and secured with VAC drape.As specification writer was securing dressing assessed small area of wound not covered by granufoam. Cut 1 small additional piece of black granufoam to cover exposed area of wound.A total of 3 pieces of black granufoam were placed in wound bed. Secured dressing with VAC drape.A small hole was then cut in drape to expose granufoam at 12 o'clock placed mushroom cap of granufoam with Sensi Trac pad over exposed granufoam. VAC machine instilled 24 ml of normal saline in wound bed. Wound will soak for 10 minutes, then suction for 2 hours. Wound VAC suctioning with low intermittent suction due to instill period. Wound VAC is working properly with out leaks upon leaving patient's room.Next wound VAC change to be done. Sunday11/20/16. Su Lilly [facility] Nov 16, 2016 10:52
--- NOTE | 2016-11-16 10:56 | PD.VS.PN ---
Subjective POD #: 6 Procedure(s): R BKA debridement Subjective/Hospital Course VAC down this morning - much improved wound appearance - only small amount of devitalized tissue lateral aspect; medial aspect looks great Objective Vitals/I&O Date Time Temp Pulse Resp B/P Pulse Ox O2 Delivery O2 Flow Rate FiO2 11/16/16 08:00 97.8 78 18 154/83 97 11/16/16 00:55 98.9 79 18 146/82 98 11/15/16 20:40 83 149/88 11/15/16 20:00 97.6 82 18 88/52 97 11/15/16 16:00 97.4 76 18 158/86 100 11/15/16 12:00 95.9 63 18 155/86 97 11/16/16 11/16/16 11/16/16 07:00 15:00 23:00 Intake Total 480 ml Output Total 790 ml Balance -310 ml Exam: lateral aspect with mild necrosis but no drainage Medial aspect looks great Laboratory Laboratory Tests Test 11/16/16 05:22 White Blood Count 14.7 Red Blood Count 3.18 Hemoglobin 8.3 Hematocrit 24.7 Mean Corpuscular Volume 77.9 Mean Corpuscular Hemoglobin 26.0 Mean Corpuscular Hemoglobin 33.4 Concent Red Cell Distribution Width 15.6 Platelet Count 257 Mean Platelet Volume 7.3 Sodium Level 131 Potassium Level 3.9 Chloride Level 96 Carbon Dioxide Level 25.6 Anion Gap 9 Blood Urea Nitrogen 12 Creatinine 1.30 Estimat Glomerular Filtration 58 Rate Random Glucose 121 Calcium Level 8.1 Magnesium Level 1.8 Assessment and Plan Assessment: (1) Amputation stump infection Status: Acute Plan continue VAC therapy antibiotics x 2 weeks after debridement, ok to transition to po Discharge Planning next week with VAC Rajesh Rowley MD Nov 16, 2016 10:55
[2016-11-16] MEDS: PANTOPRAZOLE SOD 40 MG DELAYED RELEASE TAB PO SCH (11:04)
[2016-11-16] MEDS: METOPROLOL TARTRATE 25 MG TAB PO SCH ×2 (11:04→21:50)
[2016-11-16] MEDS: LISINOPRIL 20 MG TAB PO SCH ×2 (11:05→21:51)
[2016-11-16 12:00] VITALS: BP 147/83; PULSE 82; RESP 18; TEMP 97.4; O2SAT 99
[2016-11-16] MEDS ORDERED: DIFL100T PO (13:48)
[2016-11-16] MEDS ORDERED: ZYVO600T PO (13:48)
--- NOTE | 2016-11-16 14:02 | HHI.PR ---
Subjective Remarks The patient complained about not being able to drink enough fluids. He also inquired about extra protein. He said his pain was controlled. No acute complaints. Family at the bedside. Objective Vitals Vital Signs Date Time Temp Pulse Resp B/P Pulse Ox O2 Delivery O2 Flow Rate FiO2 11/16/16 12:00 97.4 82 18 147/83 99 11/16/16 08:00 97.8 78 18 154/83 97 11/16/16 00:55 98.9 79 18 146/82 98 11/15/16 20:40 83 149/88 11/15/16 20:00 97.6 82 18 88/52 97 11/15/16 16:00 97.4 76 18 158/86 100 I/O 11/15/16 11/15/16 11/15/16 11/16/16 11/16/16 11/16/16 06:59 14:59 22:59 06:59 14:59 22:59 Intake Total 233 ml 240 ml 730 ml 480 ml Output Total 100 ml 950 ml 1050 ml 790 ml Balance 133 ml -710 ml -320 ml -310 ml Intake Oral 240 ml 480 ml 480 ml IV Total 233 ml 250 ml Output Urine Total 800 ml 1000 ml 700 ml Drainage Total 100 ml 150 ml 50 ml 90 ml # Bowel Movements 0 1 0 Result Diagram: 11/16/1652111/16/16521 Objective Remarks GENERAL: This is a well-nourished, well-developed patient, in no apparent distress. CARDIOVASCULAR: Regular rate and rhythm without murmurs, gallops, or rubs. RESPIRATORY: Clear to auscultation. Breath sounds equal bilaterally. No wheezes , rales, or rhonchi. GASTROINTESTINAL: Abdomen soft, non-tender, nondistended. Normal active bowel sounds. MUSCULOSKELETAL: Bilateral LE amputations. Wound vac in place. NEURO: Alert & Oriented x4 to person, place, time, situation. No gross neurological deficit. PSYCH: Mood and affect appropriate. Medications and IVs Current Medications Medications (Trade) Dose Ordered Sig/Kaushal Route Start Time Stop Time Status Last Admin (NS Flush) 2 ml UNSCH PRN IV FLUSH 11/09/16 19:30 11/12/16 02:20 (NS Flush) 2 ml BID IV FLUSH 11/09/16 21:00 11/16/16 09:00 (Zofran Inj) 4 mg Q6H PRN IVP 11/09/16 19:30 11/11/16 04:53 (Tylenol) 650 mg Q6H PRN PO 11/09/16 19:30 (Latia-Colace) 1 tab BID PO 11/09/16 21:00 11/14/16 07:46 (Milk Of Magnesia Liq) 30 ml Q12H PRN PO 11/09/16 19:30 11/14/16 07:46 (Senokot) 17.2 mg Q12H PRN PO 11/09/16 19:30 (Dulcolax Supp) 10 mg DAILY PRN RECTAL 11/09/16 19:30 (Lactulose Liq) 30 ml DAILY PRN PO 11/09/16 19:30 (Norvasc) 10 mg DAILY PO 11/10/16 09:00 11/16/16 11:04 (Lipitor) 40 mg HS PO 11/09/16 21:00 11/15/16 21:10 (Prinivil) 20 mg Q12HR PO 11/09/16 21:00 11/16/16 11:05 (Lopressor) 25 mg BID PO 11/09/16 21:00 11/16/16 11:04 (Protonix) 40 mg DAILY PO 11/10/16 09:00 11/16/16 11:04 (Roxicodone) 5 mg Q4H PRN PO 11/10/16 09:15 11/13/16 13:15 (Dilaudid) 2 mg Q4H PRN PO 11/10/16 09:15 11/16/16 01:51 (Morphine Inj) 2 mg Q1H PRN IV 11/10/16 09:15 11/16/16 03:26 (Heparin Inj) 5,000 units Q8HR SQ 11/14/16 14:15 11/16/16 13:15 Miscellaneous Information SPECIFIC LAB TO BE DRAWN:VANCOMYCIN TROUGH DATE TO... 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 Rowley for wet gangrene, now w/ stump infection, + foul-smelling necrotic tissue and wound dehiscence. Dr. Rowley consulted, s/p stump debridement. MRSA, enterococcus and yeast growing from wound. ID consult appreciated. - continue w/ abx per infectious disease. Switched to PO linezolid and fluconazole. - analgesics/antiemetics as needed. - wound vac per surgery. - add Ensure with meals. Hyponatremia The pt appears euvolemic. Improved. - d/c fluid restriction per pt request. HTN Relatively controlled. - resume home medications with holding parameters and monitor blood pressure. Anemia Suspect chronic vs post op. Appears around baseline. - monitor and transfuse as needed. PPx: Heparin Discharge Planning Awaiting vascular clearance. Harsh Khan DO Nov 16, 2016 14:02
--- NOTE | 2016-11-16 14:07 | HHI.IDPN ---
Subjective Subjective Remarks Patient is a 51-year-old male, presented to the emergency room for further evaluation of his right BKA stump. Patient underwent right BKA September 2016, was seen by his vascular surgeon, and he was noted to have redness, purulent drainage, and necrosis of the stump. Patient underwent surgery and had debridement of the skin and subcutaneous tissue and muscle, and the wound was left open and has had a wound VAC dressing in place. There was a wound culture done in the emergency room which is reported as growing MRSA, enterococcus, and yeast. There was no intraoperative cultures sent. Patient has not had any fever. He is main complaint is pain at the surgical site. He has no other complaints. Patient has been getting IV vancomycin, Flagyl, and Cipro. Notes reviewed Vascular surgery notes reviewed Wound vac changed today and wound look clean, no purulence No fever C/O about his fluid restriction C/S reviewed Antibiotics Vancomycin Lines PIV Past Medical History Hypertension Borderline DM Obesity Past Surgical History L AKA R BKA Allergies: Coded Allergies: Penicillin (Verified Allergy, Unknown, 10/17/16) *MDRO Multi-Drug Resistant Organism (Verified Adverse Reaction, Unknown, ) MRSA (leg)-11/09/16 Objective . Vital Signs Date Time Temp Pulse Resp B/P Pulse Ox O2 Delivery O2 Flow Rate FiO2 11/16/16 12:00 97.4 82 18 147/83 99 11/16/16 08:00 97.8 78 18 154/83 97 11/16/16 00:55 98.9 79 18 146/82 98 11/15/16 20:40 83 149/88 11/15/16 20:00 97.6 82 18 88/52 97 11/15/16 16:00 97.4 76 18 158/86 100 11/15/16 11/15/16 11/16/16 15:00 23:00 07:00 Intake Total 240 ml 730 ml 480 ml Output Total 950 ml 1050 ml 790 ml Balance -710 ml -320 ml -310 ml Intake Oral 240 ml 480 ml 480 ml IV Total 250 ml Output Urine Total 800 ml 1000 ml 700 ml Drainage Total 150 ml 50 ml 90 ml # Bowel Movements 0 1 0 . Laboratory Tests Test 11/15/16 11/16/16 04:42 05:22 White Blood Count 13.1 TH/MM3 14.7 TH/MM3 Red Blood Count 3.29 MIL/MM3 3.18 MIL/MM3 Hemoglobin 8.6 GM/DL 8.3 GM/DL Hematocrit 25.4 % 24.7 % Mean Corpuscular Volume 77.0 FL 77.9 FL Mean Corpuscular Hemoglobin 26.0 PG 26.0 PG Mean Corpuscular Hemoglobin 33.8 % 33.4 % Concent Red Cell Distribution Width 15.2 % 15.6 % Platelet Count 318 TH/MM3 257 TH/MM3 Mean Platelet Volume 7.2 FL 7.3 FL Laboratory Tests Test 11/15/16 11/16/16 04:42 05:22 Sodium Level 132 MEQ/L 131 MEQ/L Potassium Level 3.7 MEQ/L 3.9 MEQ/L Chloride Level 98 MEQ/L 96 MEQ/L Carbon Dioxide Level 27.8 MEQ/L 25.6 MEQ/L Anion Gap 6 MEQ/L 9 MEQ/L Blood Urea Nitrogen 12 MG/DL 12 MG/DL Creatinine 1.18 MG/DL 1.30 MG/DL Estimat Glomerular Filtration 65 ML/MIN 58 ML/MIN Rate Random Glucose 131 MG/DL 121 MG/DL Calcium Level 8.1 MG/DL 8.1 MG/DL Magnesium Level 1.8 MG/DL 1.8 MG/DL Physical Exam GENERAL: awake and alert, not in respiratory distress. SKIN: Warm and dry. No generalized rash HEAD: Atraumatic. Normocephalic. No temporal wasting, or tenderness. EYES: [place] conjunctiva. No petechia or hemorrhage. Pupils equal, round and reactive to light. Extraocular movements full and intact. No scleral icterus. No injection or drainage. EARS, NOSE AND THROAT: Nose without bleeding or purulent nasal discharge. Mucous membranes pink and moist. No oral lesions noted. NECK: Trachea midline. Supple and not tender, no meningeal signs CARDIOVASCULAR: Regular rate and rhythm. No murmurs, rubs or gallops heard RESPIRATORY: Clear to auscultation. Breath sounds equal bilaterally. No rales , wheezing or rhonchi ABDOMEN: Soft, non-tender, nondistended. Bowel sounds present and normoactive. No guarding. No rebound. No organomegaly. EXTREMITIES: S/P L AKA well healed stump. S/P R BKA, has wound vac dressing in place, with no surrounding cellulitis around the open wound, no lymphangitis present. NEUROLOGICAL: Awake and alert. Cranial nerves grossly intact. Motor grossly within normal limits. PSYCHIATRIC: Normal affect, calm and cooperative. LINE: No evidence of infection Assessment & Plan Remarks IMPRESSION R AKA stump necrosis/wound infection, S/P debridement, has open wound wound with wound vac in place - cellulitis has resolved - C/S preop with MRSA, Enterococcus and yeast - no intraop C/S S/P L AKA DM RECOMMENDATION Change to Zyvox and Diflucan - give until 11/23 which is 2 weeks from date of debridement CBC on Sunday I spoke with RAMON - to help with oral Abx on D/C D/W Dr Khan D/W patient Spoke with Salina Carbone MD Nov 16, 2016 14:07
[2016-11-16 16:00] VITALS: BP 129/72; PULSE 77; RESP 19; TEMP 99.3; O2SAT 95
[2016-11-16] MEDS: LINEZOLID 600 MG TAB PO SCH ×2 (18:17→21:50)
[2016-11-16] MEDS: FLUCONAZOLE 100 MG TAB PO SCH (18:17)
[2016-11-16] MEDS ORDERED: PHARMACY ORDERED LAB ONE (19:45)
[2016-11-16 20:18] VITALS: BP 122/58; PULSE 78; RESP 18; TEMP 100; O2SAT 98
[2016-11-16] MEDS: ATORVASTATIN 40 MG TAB PO SCH (21:50)
[2016-11-17 00:16] VITALS: BP 132/70; PULSE 79; RESP 18; TEMP 98.9; O2SAT 96
[2016-11-17] MEDS: HYDROmorphone HCL 2 MG TAB PO PRN ×3 (03:57→18:29)
[2016-11-17] MEDS: HEPARIN SODIUM - SQ 10,000 UNITS/ML VIAL SQ SCH ×3 (03:57→21:42)
[2016-11-17] MEDS: SODIUM CHLORIDE 0.9% FLUSH 10 ML FLUSH IV FLUSH SCH ×2 (03:58→21:45)
[2016-11-17] MEDS: MORPHINE SULFATE 4 MG/ML INJ IV PRN ×2 (07:21→13:37)
[2016-11-17 08:00] VITALS: BP 128/76; PULSE 75; RESP 17; TEMP 97.8; O2SAT 92
[2016-11-17] MEDS: DOCUSATE SODIUM 50 MG/SENNA 8.6 MG TAB PO SCH ×2 (09:00→21:00)
[2016-11-17] MEDS: LINEZOLID 600 MG TAB PO SCH ×2 (09:19→21:44)
[2016-11-17] MEDS: LISINOPRIL 20 MG TAB PO SCH (09:19)
[2016-11-17] MEDS: FLUCONAZOLE 100 MG TAB PO SCH (09:19)
[2016-11-17] MEDS: METOPROLOL TARTRATE 25 MG TAB PO SCH ×2 (09:19→21:48)
[2016-11-17] MEDS: PANTOPRAZOLE SOD 40 MG DELAYED RELEASE TAB PO SCH (09:19)
[2016-11-17 12:00] VITALS: BP 127/73; PULSE 73; RESP 17; TEMP 98.1; O2SAT 97
[2016-11-17 16:00] VITALS: BP 134/83; PULSE 78; RESP 17; TEMP 97.9; O2SAT 98
--- NOTE | 2016-11-17 17:20 | HHI.PR ---
Subjective Remarks The patient was resting comfortably in bed. He was told he might be able to go home on Sunday. He said he does not want vanilla Ensure because it makes him queasy. Objective Vitals Vital Signs Date Time Temp Pulse Resp B/P Pulse Ox O2 Delivery O2 Flow Rate FiO2 11/17/16 16:00 97.9 78 17 134/83 98 11/17/16 13:44 18 11/17/16 13:44 18 11/17/16 12:00 98.1 73 17 127/73 97 11/17/16 08:00 97.8 75 17 128/76 92 11/17/16 00:16 98.9 79 18 132/70 96 11/16/16 20:18 100.0 78 18 122/58 98 I/O 11/16/16 11/16/16 11/16/16 11/17/16 11/17/16 11/17/16 07:00 15:00 23:00 07:00 15:00 23:00 Intake Total 480 ml 600 ml 760 ml 780 ml 220 ml Output Total 790 ml 900 ml 1250 ml 600 ml 800 ml Balance -310 ml -300 ml -490 ml 180 ml -580 ml Intake Oral 480 ml 600 ml 760 ml 780 ml 220 ml Output Urine Total 700 ml 900 ml 1000 ml 600 ml 800 ml Drainage Total 90 ml 250 ml # Bowel Movements 0 0 1 1 0 Result Diagram: 11/16/1652111/16/16521 Objective Remarks GENERAL: This is a well-nourished, well-developed patient, in no apparent distress. CARDIOVASCULAR: Regular rate and rhythm without murmurs, gallops, or rubs. RESPIRATORY: Clear to auscultation. Breath sounds equal bilaterally. No wheezes , rales, or rhonchi. GASTROINTESTINAL: Abdomen soft, non-tender, nondistended. Normal active bowel sounds. MUSCULOSKELETAL: Bilateral LE amputations. Wound vac in place. NEURO: Alert & Oriented x4 to person, place, time, situation. No gross neurological deficit. PSYCH: Mood and affect appropriate. Medications and IVs Current Medications Medications (Trade) Dose Ordered Sig/Kaushal Route Start Time Stop Time Status Last Admin (NS Flush) 2 ml UNSCH PRN IV FLUSH 11/09/16 19:30 11/12/16 02:20 (NS Flush) 2 ml BID IV FLUSH 11/09/16 21:00 11/17/16 03:58 (Zofran Inj) 4 mg Q6H PRN IVP 11/09/16 19:30 11/11/16 04:53 (Tylenol) 650 mg Q6H PRN PO 11/09/16 19:30 (Latia-Colace) 1 tab BID PO 11/09/16 21:00 11/14/16 07:46 (Milk Of Magnesia Liq) 30 ml Q12H PRN PO 11/09/16 19:30 11/14/16 07:46 (Senokot) 17.2 mg Q12H PRN PO 11/09/16 19:30 (Dulcolax Supp) 10 mg DAILY PRN RECTAL 11/09/16 19:30 (Lactulose Liq) 30 ml DAILY PRN PO 11/09/16 19:30 (Norvasc) 10 mg DAILY PO 11/10/16 09:00 11/17/16 09:19 (Lipitor) 40 mg HS PO 11/09/16 21:00 11/16/16 21:50 (Prinivil) 20 mg Q12HR PO 11/09/16 21:00 Hold 11/17/16 09:19 (Lopressor) 25 mg BID PO 11/09/16 21:00 11/17/16 09:19 (Protonix) 40 mg DAILY PO 11/10/16 09:00 11/17/16 09:19 (Roxicodone) 5 mg Q4H PRN PO 11/10/16 09:15 11/13/16 13:15 (Dilaudid) 2 mg Q4H PRN PO 11/10/16 09:15 11/17/16 12:07 (Morphine Inj) 2 mg Q1H PRN IV 11/10/16 09:15 11/17/16 13:37 (Heparin Inj) 5,000 units Q8HR SQ 11/14/16 14:15 11/17/16 13:36 (Zyvox) 600 mg Q12HR PO 11/16/16 14:00 11/17/16 09:19 (Diflucan) 100 mg DAILY PO 11/16/16 13:45 11/17/16 09:19 A/P Problem List: (1) Amputation stump infection ICD Code: T87.40 Status: Acute (2) Dehydration ICD Code: E86.0 Status: Acute (3) HTN (hypertension) ICD Code: I10 Status: Acute Assessment and Plan Stump Infection 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 Rowley for wet gangrene, now w/ stump infection, + foul-smelling necrotic tissue and wound dehiscence. Dr. Rowley consulted, s/p stump debridement. MRSA, enterococcus and yeast growing from wound. ID consult appreciated. - continue w/ abx per infectious disease. Switched to PO linezolid and fluconazole. - analgesics/antiemetics as needed. - wound vac per surgery. - added Ensure with meals. Hyponatremia The pt appears euvolemic. Improved. - d/c fluid restriction per pt request. HTN Well-controlled 11/17. - resume home medications with holding parameters and monitor blood pressure. Anemia Suspect chronic vs post op. Appears around baseline. - monitor and transfuse as needed. PPx: Heparin Discharge Planning Awaiting vascular clearance. Harsh Khan DO Nov 17, 2016 17:20
[2016-11-17 20:00] VITALS: BP_SYST 121; BP_SYST 133; BP_DIAS 71; PULSE 58; PULSE 87; RESP 20; TEMP 96; TEMP 98; O2SAT 100; O2SAT 95
[2016-11-17] MEDS: ATORVASTATIN 40 MG TAB PO SCH (21:44)
[2016-11-18] VITALS: BP 140/86; PULSE 78; RESP 20; TEMP 99.9; O2SAT 98
[2016-11-18] MEDS: HYDROmorphone HCL 2 MG TAB PO PRN ×2 (04:04→21:07)
[2016-11-18] MEDS: HEPARIN SODIUM - SQ 10,000 UNITS/ML VIAL SQ SCH ×3 (04:04→20:56)
[2016-11-18 05:26] LABS: HEMATOCRIT 23.2 % (39.0-51.0); MEAN CELL VOLUME 77.3 FL (80.0-100.0); MEAN CORPUSCULAR HEMOGLOBIN 26.4 PG (27.0-34.0); MEAN CORPUSCULAR HGB CONC 34.2 % (32.0-36.0); PLATELET COUNT 252 TH/MM3 (150-450); RED BLOOD COUNT 3.01 MIL/MM3 (4.50-5.90); RED CELL DISTRIBUTION WIDTH 15.9 % (11.6-17.2); REVIEW FLAG FINAL; WHITE BLOOD COUNT 16.9 TH/MM3 (4.0-11.0)
[2016-11-18 05:54] LABS: BICARBONATE 27.1 MEQ/L (21.0-32.0); MAGNESIUM 1.7 MG/DL (1.5-2.5); POTASSIUM 3.8 MEQ/L (3.5-5.1)
[2016-11-18 08:00] VITALS: BP 140/84; PULSE 74; RESP 15; TEMP 98.4; O2SAT 98
[2016-11-18] MEDS: MORPHINE SULFATE 4 MG/ML INJ IV PRN ×3 (08:57→22:39)
[2016-11-18] MEDS: LINEZOLID 600 MG TAB PO SCH ×2 (08:57→20:55)
[2016-11-18] MEDS: DOCUSATE SODIUM 50 MG/SENNA 8.6 MG TAB PO SCH ×2 (08:57→20:56)
[2016-11-18] MEDS: FLUCONAZOLE 100 MG TAB PO SCH (08:57)
[2016-11-18] MEDS: PANTOPRAZOLE SOD 40 MG DELAYED RELEASE TAB PO SCH (08:57)
[2016-11-18] MEDS: METOPROLOL TARTRATE 25 MG TAB PO SCH ×2 (08:57→20:55)
[2016-11-18] MEDS: SODIUM CHLORIDE 0.9% FLUSH 10 ML FLUSH IV FLUSH SCH ×2 (08:58→20:56)
--- NOTE | 2016-11-18 09:14 | PD.VS.PN ---
Subjective Procedure(s): R BKA debridement Subjective/Hospital Course VAC in place. Patient without complaints. Objective Vitals/I&O Date Time Temp Pulse Resp B/P Pulse Ox O2 Delivery O2 Flow Rate FiO2 11/18/16 00:00 99.9 78 20 140/86 98 11/17/16 20:00 98.0 58 20 133/71 95 11/17/16 20:00 96.0 87 20 121/71 100 11/17/16 16:00 97.9 78 17 134/83 98 11/17/16 13:44 18 11/17/16 13:44 18 11/17/16 12:00 98.1 73 17 127/73 97 Exam: right amputation stump with wound vac in place. Laboratory Laboratory Tests Test 11/18/16 03:58 White Blood Count 16.9 Red Blood Count 3.01 Hemoglobin 7.9 Hematocrit 23.2 Mean Corpuscular Volume 77.3 Mean Corpuscular Hemoglobin 26.4 Mean Corpuscular Hemoglobin 34.2 Concent Red Cell Distribution Width 15.9 Platelet Count 252 Mean Platelet Volume 7.8 Sodium Level 130 Potassium Level 3.8 Chloride Level 95 Carbon Dioxide Level 27.1 Anion Gap 8 Blood Urea Nitrogen 14 Creatinine 1.50 Estimat Glomerular Filtration 49 Rate Random Glucose 112 Calcium Level 8.1 Magnesium Level 1.7 Assessment and Plan Assessment: (1) Amputation stump infection Status: Acute Plan Wound vac therapy to right amputation stump continued. Will be changed on sunday. Discharge planning. Discharge Planning next week with Shad Welch DO Nov 18, 2016 09:14
[2016-11-18 12:00] VITALS: BP 136/77; PULSE 72; RESP 17; TEMP 97.4; O2SAT 97
--- NOTE | 2016-11-18 14:32 | HHI.PR ---
Subjective Remarks The pt wanted extra protein in his meals. He wanted to know when he'd be leaving. Urinating normally. Family at the bedside. Discussed with nursing. Objective Vitals Vital Signs Date Time Temp Pulse Resp B/P Pulse Ox O2 Delivery O2 Flow Rate FiO2 11/18/16 12:00 97.4 72 17 136/77 97 11/18/16 08:00 98.4 74 15 140/84 98 11/18/16 00:00 99.9 78 20 140/86 98 11/17/16 20:00 98.0 58 20 133/71 95 11/17/16 20:00 96.0 87 20 121/71 100 11/17/16 16:00 97.9 78 17 134/83 98 I/O 11/17/16 11/17/16 11/17/16 11/18/16 11/18/16 11/18/16 07:00 15:00 23:00 07:00 15:00 23:00 Intake Total 780 ml 220 ml 480 ml 240 ml Output Total 600 ml 800 ml 300 ml 700 ml Balance 180 ml -580 ml 180 ml -460 ml Intake Oral 780 ml 220 ml 480 ml 240 ml Output Urine Total 600 ml 800 ml 300 ml 700 ml # Bowel Movements 1 0 Result Diagram: 11/18/16 0358 11/18/16 0358 Objective Remarks GENERAL: This is a well-nourished, well-developed patient, in no apparent distress. CARDIOVASCULAR: Regular rate and rhythm without murmurs, gallops, or rubs. RESPIRATORY: Clear to auscultation. Breath sounds equal bilaterally. No wheezes , rales, or rhonchi. GASTROINTESTINAL: Abdomen soft, non-tender, nondistended. Normal active bowel sounds. MUSCULOSKELETAL: Bilateral LE amputations. Wound vac in place. NEURO: Alert & Oriented x4 to person, place, time, situation. No gross neurological deficit. PSYCH: Mood and affect appropriate. Medications and IVs Current Medications Medications (Trade) Dose Ordered Sig/Kaushal Route Start Time Stop Time Status Last Admin (NS Flush) 2 ml UNSCH PRN IV FLUSH 11/09/16 19:30 11/12/16 02:20 (NS Flush) 2 ml BID IV FLUSH 11/09/16 21:00 11/18/16 08:58 (Zofran Inj) 4 mg Q6H PRN IVP 11/09/16 19:30 11/11/16 04:53 (Tylenol) 650 mg Q6H PRN PO 11/09/16 19:30 (Latia-Colace) 1 tab BID PO 11/09/16 21:00 11/14/16 07:46 (Milk Of Magnesia Liq) 30 ml Q12H PRN PO 11/09/16 19:30 11/14/16 07:46 (Senokot) 17.2 mg Q12H PRN PO 11/09/16 19:30 (Dulcolax Supp) 10 mg DAILY PRN RECTAL 11/09/16 19:30 (Lactulose Liq) 30 ml DAILY PRN PO 11/09/16 19:30 (Norvasc) 10 mg DAILY PO 11/10/16 09:00 11/18/16 08:57 (Lipitor) 40 mg HS PO 11/09/16 21:00 11/17/16 21:44 (Prinivil) 20 mg Q12HR PO 11/09/16 21:00 Hold 11/17/16 09:19 (Lopressor) 25 mg BID PO 11/09/16 21:00 11/18/16 08:57 (Protonix) 40 mg DAILY PO 11/10/16 09:00 11/18/16 08:57 (Roxicodone) 5 mg Q4H PRN PO 11/10/16 09:15 11/13/16 13:15 (Dilaudid) 2 mg Q4H PRN PO 11/10/16 09:15 11/18/16 04:04 (Morphine Inj) 2 mg Q1H PRN IV 11/10/16 09:15 11/18/16 12:52 (Heparin Inj) 5,000 units Q8HR SQ 11/14/16 14:15 11/18/16 12:52 (Zyvox) 600 mg Q12HR PO 11/16/16 14:00 11/18/16 08:57 Fluconazole 100 mg 100 mg DAILY PO 11/16/16 13:45 11/18/16 08:57 (NS 1000 ml Inj) 1,000 ml @ 100 mls/hr Q10H IV 11/18/16 15:00 11/19/16 10:59 A/P Problem List: (1) Amputation stump infection ICD Code: T87.40 Status: Acute (2) Dehydration ICD Code: E86.0 Status: Acute (3) HTN (hypertension) ICD Code: I10 Status: Acute Assessment and Plan Stump Infection 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 Rowley for wet gangrene, now w/ stump infection, + foul-smelling necrotic tissue and wound dehiscence. Dr. Rowley consulted, s/p stump debridement. MRSA, enterococcus and yeast growing from wound. ID consult appreciated. - continue w/ abx per infectious disease. Switched to PO linezolid and fluconazole. - analgesics/antiemetics as needed. - wound vac per surgery. - added Ensure with meals. Acute renal failure Possibly s/t antibiotics or dehydration. Non-oliguric. - check UA c/s and urine sodium/ creatinine to calculate FENa. - IVFs. - renal US and renal consult in AM if no improvement. Hyponatremia The pt appears euvolemic. Improved. - d/c fluid restriction per pt request. HTN Well-controlled 11/18. - resume home medications with holding parameters and monitor blood pressure. Anemia Suspect chronic vs post op. Appears around baseline. - monitor and transfuse as needed. PPx: Heparin Discharge Planning Awaiting vascular clearance, improvement in renal indices Harsh Khan DO Nov 18, 2016 14:32
[2016-11-18] MEDS: SODIUM CHLOR 0.9% 1000 ML INJ 1,000 ML IV SCH (14:50)
[2016-11-18 16:00] VITALS: BP 132/74; PULSE 87; RESP 16; TEMP 97.1; O2SAT 99
[2016-11-18 20:00] VITALS: BP 122/79; PULSE 78; RESP 20; TEMP 97.5; O2SAT 99
[2016-11-18] MEDS: ATORVASTATIN 40 MG TAB PO SCH (20:56)
[2016-11-19] VITALS: BP 142/76; PULSE 80; RESP 20; TEMP 97; O2SAT 99
[2016-11-19] MEDS: HYDROmorphone HCL 2 MG TAB PO PRN ×3 (01:24→17:11)
[2016-11-19] MEDS: MORPHINE SULFATE 4 MG/ML INJ IV PRN ×3 (02:57→21:50)
[2016-11-19] MEDS: SODIUM CHLOR 0.9% 1000 ML INJ 1,000 ML IV SCH (04:22)
[2016-11-19] MEDS: HEPARIN SODIUM - SQ 10,000 UNITS/ML VIAL SQ SCH ×3 (05:13→21:49)
[2016-11-19 05:39] LABS: BACTERIA, URINE RARE /hpf; BLOOD, URINE TRACE (NEG); GLUCOSE,URINE NEG (NEG); KETONE, URINE NEG (NEG); NITRITE,URINE NEG (NEG); URINE COLOR LIGHT-YELLOW (YELLW/STRAW)
[2016-11-19 05:40] LABS: COMMENT (UR) CULT NOT INDICATED; CULTURE IF INDICATED CULT NOT INDICATED
[2016-11-19 05:53] LABS: AUTOMATED NEUTROPHIL # 9.8 TH/MM3 (1.8-7.7); BASOPHIL % 0.3 % (0.0-2.0); EOSINOPHIL # 0.2 TH/MM3 (0-0.4); EOSINOPHIL % 1.3 % (0.0-4.0); HEMO FLAGS DIFF FINAL; LYMPH % 16.9 % (9.0-44.0); LYMPHOCYTE # 2.4 TH/MM3 (1.0-4.8); MEAN CELL VOLUME 77.7 FL (80.0-100.0); MEAN CORPUSCULAR HGB CONC 33.5 % (32.0-36.0); MONO % 12.6 % (0.0-8.0); NEUT % 68.9 % (16.0-70.0); PLATELET COUNT 263 TH/MM3 (150-450); RED BLOOD COUNT 3.21 MIL/MM3 (4.50-5.90); RED CELL DISTRIBUTION WIDTH 15.2 % (11.6-17.2); WHITE BLOOD COUNT 14.3 TH/MM3 (4.0-11.0)
[2016-11-19 06:17] LABS: BICARBONATE 24.7 MEQ/L (21.0-32.0); MAGNESIUM 1.8 MG/DL (1.5-2.5); POTASSIUM 4.1 MEQ/L (3.5-5.1)
[2016-11-19 08:00] VITALS: BP 155/84; PULSE 69; RESP 18; TEMP 97.7; O2SAT 98
[2016-11-19] MEDS: PANTOPRAZOLE SOD 40 MG DELAYED RELEASE TAB PO SCH (08:17)
[2016-11-19] MEDS: METOPROLOL TARTRATE 25 MG TAB PO SCH ×2 (08:17→21:49)
[2016-11-19] MEDS: FLUCONAZOLE 100 MG TAB PO SCH (08:17)
[2016-11-19] MEDS: LINEZOLID 600 MG TAB PO SCH ×2 (08:17→21:49)
[2016-11-19] MEDS: DOCUSATE SODIUM 50 MG/SENNA 8.6 MG TAB PO SCH ×2 (08:18→21:00)
[2016-11-19] MEDS: SODIUM CHLORIDE 0.9% FLUSH 10 ML FLUSH IV FLUSH SCH ×2 (08:18→21:50)
[2016-11-19 12:00] VITALS: BP 134/77; PULSE 75; RESP 18; TEMP 97.9; O2SAT 94
--- NOTE | 2016-11-19 14:24 | HHI.PR ---
Subjective Remarks No new complaints today. Wound VAC change at surgical's site at stump is planned for tomorrow. Antibiotics to continue. Objective Vital Signs Date Time Temp Pulse Resp B/P Pulse Ox O2 Delivery O2 Flow Rate FiO2 11/19/16 12:00 97.9 75 18 134/77 94 11/19/16 08:00 97.7 69 18 155/84 98 11/19/16 00:00 97.0 80 20 142/76 99 11/18/16 20:00 97.5 78 20 122/79 99 11/18/16 16:00 97.1 87 16 132/74 99 I/O 11/18/16 11/18/16 11/18/16 11/19/16 11/19/16 11/19/16 07:00 15:00 23:00 07:00 15:00 23:00 Intake Total 240 ml 960 ml 856 ml 1031 ml Output Total 700 ml 700 ml 1000 ml 1700 ml Balance -460 ml 260 ml -144 ml -669 ml Intake Oral 240 ml 960 ml 240 ml 240 ml IV Total 0 ml 616 ml 791 ml Output Urine Total 700 ml 700 ml 600 ml 1600 ml Drainage Total 400 ml 100 ml # Bowel Movements 2 Result Diagram: 11/19/16 0509 11/19/16 0509 Objective Remarks GENERAL: NAD, A&Ox3 HEAD: Normocephalic. NECK: Supple, trachea midline. No lymphadenopathy. EYES: No scleral icterus. No injection or drainage. CARDIOVASCULAR: Regular rate and rhythm without murmurs, gallops, or rubs. RESPIRATORY: Breath sounds equal bilaterally. No accessory muscle use. GASTROINTESTINAL: Abdomen soft, non-tender, nondistended. MUSCULOSKELETAL: No cyanosis, or edema. Right BKA, left AKA, wound VAC at left AKA wound SKIN: Warm and dry. NEURO: No focal neurological deficitis. A/P Problem List: (1) Amputation stump infection ICD Code: T87.40 (2) HTN (hypertension) ICD Code: I10 (3) Dehydration ICD Code: E86.0 (4) Sepsis ICD Code: A41.9 (5) Surgical wound infection ICD Code: T81.4XXA (6) Infection of amputation stump ICD Code: T87.40 (7) Diabetes ICD Code: E11.9 (8) Gangrene ICD Code: I96 (9) Above knee amputation of left lower extremity ICD Code: Z89.612 (10) Amputation of right lower extremity below knee ICD Code: Z89.511 Assessment and Plan Assessment and Plan 51-year-old male status post right AKA on 09/26/16. Admitted with wet gangrene of left sided stone with necrotic tissue, now status post debridement with wound VAC in place. Right AKA Stump Infection/gangrene Original AKA amputation on 09/26/16 Admitted for treatment of infection on 11/09/16 MRSA, enterococcus, and yeast screw from wound culture ID following Vascular Surgeon following Continue wound VAC Next wound VAC changes tomorrow Acute kidney injury Improved compared to yesterday Degree of elevation is mild and may represent chronic kidney disease Antibiotics could cause a slight increase in renal insufficiency as could surgery or infection. Follow renal function As long as renal function is stable and not progressive, no further intervention would be needed Should improve as patient weans off antibiotic, wound heals, and infection resolves Hyponatremia Improving Near normalized Follow sodium levels HTN Stable Follow blood pressures Continue home treatments Anemia Stable Follow CBC DVT prophylaxis Heparin Discharge Planning Wound VAC changed tomorrow, to occur prior to discharge. Patient is approaching medical stability, which will be determined based on laboratory findings in a.m. Problem Qualifiers (1) Sepsis: Qualified Code: A41.9 - Sepsis, due to unspecified organism (2) Surgical wound infection: Qualified Code: T81.4XXA - Surgical wound infection, initial encounter Boaz Chinchilla MD Nov 19, 2016 14:24
[2016-11-19] MEDS ORDERED: COMMODE BEDSIDE1 MI1 (14:25)
[2016-11-19 16:00] VITALS: BP 127/75; PULSE 77; RESP 16; TEMP 97.1; O2SAT 97
[2016-11-19 20:00] VITALS: BP 139/77; PULSE 106; RESP 20; TEMP 97.7; O2SAT 95
[2016-11-19] MEDS: ATORVASTATIN 40 MG TAB PO SCH (21:49)
[2016-11-20] VITALS: BP 105/55; PULSE 76; RESP 18; TEMP 98.7; O2SAT 96
[2016-11-20] MEDS: HYDROmorphone HCL 2 MG TAB PO PRN ×2 (03:26→09:30)
[2016-11-20 04:01] LABS: HEMATOCRIT 24.1 % (39.0-51.0); MEAN CELL VOLUME 78.4 FL (80.0-100.0); MEAN CORPUSCULAR HEMOGLOBIN 26.3 PG (27.0-34.0); MEAN CORPUSCULAR HGB CONC 33.5 % (32.0-36.0); PLATELET COUNT 283 TH/MM3 (150-450); RED BLOOD COUNT 3.07 MIL/MM3 (4.50-5.90); RED CELL DISTRIBUTION WIDTH 15.6 % (11.6-17.2); REVIEW FLAG FINAL; WHITE BLOOD COUNT 12.4 TH/MM3 (4.0-11.0)
[2016-11-20 04:27] LABS: BICARBONATE 25.4 MEQ/L (21.0-32.0); POTASSIUM 4.1 MEQ/L (3.5-5.1)
[2016-11-20] MEDS: MORPHINE SULFATE 4 MG/ML INJ IV PRN ×3 (06:49→21:55)
[2016-11-20] MEDS: HEPARIN SODIUM - SQ 10,000 UNITS/ML VIAL SQ SCH ×3 (06:49→21:54)
[2016-11-20 08:00] VITALS: BP 106/63; PULSE 77; RESP 19; TEMP 97.5; O2SAT 96
--- NOTE | 2016-11-20 08:02 | HHI.PR ---
Subjective Remarks This is a pleasant 51 y/o male who was admitted through Emergency Room for evaluation of his right BKA stump with erythema and purulent discharge, necrosis of the stump, underwent surgery and debridement with skin and subcutaneous tissue and muscle, wound vac recommended by Vascular surgery to be changed today and Discharge the patient, wound culture growing MRSA enterococcus and yeast he has Obesity, Hypertension Seen in his bedroom he states is feeling well, awaiting for Right BKA stump Vacuum change and then discharge discussed with manager infrastructure working on this discharge, No nausea, vomit or diarrhea. Objective Vital Signs Date Time Temp Pulse Resp B/P Pulse Ox O2 Delivery O2 Flow Rate FiO2 11/20/16 00:00 98.7 76 18 105/55 96 11/19/16 20:00 97.7 106 20 139/77 95 11/19/16 16:00 97.1 77 16 127/75 97 11/19/16 12:00 97.9 75 18 134/77 94 11/19/16 08:00 97.7 69 18 155/84 98 I/O 11/19/16 11/19/16 11/19/16 11/20/16 11/20/16 11/20/16 07:00 15:00 23:00 07:00 15:00 23:00 Intake Total 1031 ml 720 ml 720 ml 360 ml Output Total 1700 ml 1000 ml 1700 ml 1000 ml Balance -669 ml -280 ml -980 ml -640 ml Intake Oral 240 ml 720 ml 720 ml 360 ml IV Total 791 ml Output Urine Total 1600 ml 750 ml 1650 ml 900 ml Drainage Total 100 ml 250 ml 50 ml 100 ml # Bowel Movements 0 0 Result Diagram: 11/20/1631611/20/16316 Imaging No Imaging studies. Procedures Right BKA debridement Other Results Laboratory Tests Test 11/16/16 11/19/16 11/19/16 11/20/16 13:20 05:09 05:10 03:17 Vancomycin Level Trough 30.1 MCG/ML Neutrophils (%) (Auto) 68.9 % Lymphocytes (%) (Auto) 16.9 % Monocytes (%) (Auto) 12.6 % Eosinophils (%) (Auto) 1.3 % Basophils (%) (Auto) 0.3 % Neutrophils # (Auto) 9.8 TH/MM3 Lymphocytes # (Auto) 2.4 TH/MM3 Monocytes # (Auto) 1.8 TH/MM3 Eosinophils # (Auto) 0.2 TH/MM3 Basophils # (Auto) 0.0 TH/MM3 CBC Comment DIFF FINAL Differential Comment Magnesium Level 1.8 MG/DL Urine Color LIGHT-YELLOW Urine Turbidity CLEAR Urine pH 6.0 Urine Specific [place] 1.005 Urine Protein NEG mg/dL Urine Glucose (UA) NEG mg/dL Urine Ketones NEG mg/dL Urine Occult Blood TRACE Urine Nitrite NEG Urine Bilirubin NEG Urine Urobilinogen LESS THAN 2.0 MG/DL Urine Leukocyte Esterase SMALL Urine RBC 1 /hpf Urine WBC 2 /hpf Urine Bacteria RARE /hpf Microscopic Urinalysis Comment CULT NOT INDICATED Urine Random Creatinine 27.0 MG/DL Urine Random Sodium 64 MEQ/L White Blood Count 12.4 TH/MM3 Red Blood Count 3.07 MIL/MM3 Hemoglobin 8.1 GM/DL Hematocrit 24.1 % Mean Corpuscular Volume 78.4 FL Mean Corpuscular Hemoglobin 26.3 PG Mean Corpuscular Hemoglobin 33.5 % Concent Red Cell Distribution Width 15.6 % Platelet Count 283 TH/MM3 Mean Platelet Volume 7.7 FL Sodium Level 133 MEQ/L Potassium Level 4.1 MEQ/L Chloride Level 99 MEQ/L Carbon Dioxide Level 25.4 MEQ/L Anion Gap 9 MEQ/L Blood Urea Nitrogen 15 MG/DL Creatinine 1.54 MG/DL Estimat Glomerular Filtration 47 ML/MIN Rate Random Glucose 162 MG/DL Calcium Level 7.9 MG/DL Objective Remarks GENERAL: NAD, A&Ox3 HEAD: Normocephalic. NECK: Supple, trachea midline. No lymphadenopathy. EYES: No scleral icterus. No injection or drainage. CARDIOVASCULAR: Regular rate and rhythm without murmurs, gallops, or rubs. RESPIRATORY: Breath sounds equal bilaterally. No accessory muscle use. GASTROINTESTINAL: Abdomen soft, non-tender, nondistended. MUSCULOSKELETAL: No cyanosis, or edema. Right BKA, left AKA, wound VAC at Right BKA stump SKIN: Warm and dry. NEURO: No focal neurological deficits. Medications and IVs Current Medications Medications (Trade) Dose Ordered Sig/Kaushal Route Start Time Stop Time Status Last Admin (NS Flush) 2 ml UNSCH PRN IV FLUSH 11/09/16 19:30 11/12/16 02:20 (NS Flush) 2 ml BID IV FLUSH 11/09/16 21:00 11/19/16 21:50 (Zofran Inj) 4 mg Q6H PRN IVP 11/09/16 19:30 11/11/16 04:53 (Tylenol) 650 mg Q6H PRN PO 11/09/16 19:30 (Latia-Colace) 1 tab BID PO 11/09/16 21:00 11/14/16 07:46 (Milk Of Magnesia Liq) 30 ml Q12H PRN PO 11/09/16 19:30 11/14/16 07:46 (Senokot) 17.2 mg Q12H PRN PO 11/09/16 19:30 (Dulcolax Supp) 10 mg DAILY PRN RECTAL 11/09/16 19:30 (Lactulose Liq) 30 ml DAILY PRN PO 11/09/16 19:30 (Norvasc) 10 mg DAILY PO 11/10/16 09:00 11/19/16 08:17 (Lipitor) 40 mg HS PO 11/09/16 21:00 11/19/16 21:49 (Prinivil) 20 mg Q12HR PO 11/09/16 21:00 Hold 11/17/16 09:19 (Lopressor) 25 mg BID PO 11/09/16 21:00 11/19/16 21:49 (Protonix) 40 mg DAILY PO 11/10/16 09:00 11/19/16 08:17 (Roxicodone) 5 mg Q4H PRN PO 11/10/16 09:15 11/13/16 13:15 (Dilaudid) 2 mg Q4H PRN PO 11/10/16 09:15 11/20/16 03:26 (Morphine Inj) 2 mg Q1H PRN IV 11/10/16 09:15 11/20/16 06:49 (Heparin Inj) 5,000 units Q8HR SQ 11/14/16 14:15 11/20/16 06:49 (Zyvox) 600 mg Q12HR PO 11/16/16 14:00 11/19/16 21:49 (Diflucan) 100 mg DAILY PO 11/16/16 13:45 11/19/16 08:17 A/P Assessment and Plan 51-year-old male status post right BKA on 09/26/16. Admitted with wet gangrene of left sided stone with necrotic tissue, now status post debridement with wound VAC in place. Right AKA Stump Infection/gangrene Original AKA amputation on 09/26/16 Admitted for treatment of infection on 11/09/16 MRSA, enterococcus, and yeast screw from wound culture ID following Vascular Surgeon following Continue wound VAC Next wound VAC changes tomorrow Infectious Disease recommended to Zyvox and Diflucan give until November 23 2016, Change to Zyvox and Diflucan Acute kidney injury worsening compared with Yesterday, will give IV fluids and follow with new BMP Antibiotics could cause a slight increase in renal insufficiency as could surgery or infection. Hyponatremia Improving. HTN Controlled. Anemia Stable DVT prophylaxis Heparin Discussed with patient and manager infrastructure. Discharge Planning Wound VAC changed today, to occur prior to discharge. Patient is approaching medical stability, which will be determined based on laboratory findings in Franco Rodriges MD Nov 20, 2016 08:01 Wound VAC changed today, to occur prior to discharge. Patient is approaching medical stability, which will be determined based on laboratory findings in Franco Rodriges MD Nov 20, 2016 08:01
[2016-11-20] MEDS: DOCUSATE SODIUM 50 MG/SENNA 8.6 MG TAB PO SCH ×2 (09:00→21:00)
[2016-11-20] MEDS: LINEZOLID 600 MG TAB PO SCH ×2 (09:24→21:53)
[2016-11-20] MEDS: METOPROLOL TARTRATE 25 MG TAB PO SCH ×2 (09:24→21:53)
[2016-11-20] MEDS: FLUCONAZOLE 100 MG TAB PO SCH (09:24)
[2016-11-20] MEDS: PANTOPRAZOLE SOD 40 MG DELAYED RELEASE TAB PO SCH (09:24)
[2016-11-20] MEDS: SODIUM CHLORIDE 0.9% FLUSH 10 ML FLUSH IV FLUSH SCH ×2 (09:25→21:54)
[2016-11-20] MEDS: SODIUM CHLOR 0.9% 1000 ML INJ 1,000 ML IV SCH (09:26)
[2016-11-20 12:00] VITALS: BP 114/81; PULSE 78; RESP 18; TEMP 96.8; O2SAT 96
[2016-11-20] MEDS: SODIUM CHLORIDE 0.9% FLUSH 10 ML FLUSH IV FLUSH PRN (12:10)
--- NOTE | 2016-11-20 12:35 | PD.VS.PN ---
Subjective Procedure(s): R BKA debridement Subjective/Hospital Course Pt in bed w/o complaints Wound VAC changed R BKA w/ improved wound healing since last wound vac change Objective Vitals/I&O Date Time Temp Pulse Resp B/P Pulse Ox O2 Delivery O2 Flow Rate FiO2 11/20/16 12:15 16 11/20/16 12:00 96.8 78 18 114/81 96 11/20/16 10:30 16 11/20/16 08:00 97.5 77 19 106/63 96 11/20/16 00:00 98.7 76 18 105/55 96 11/19/16 20:00 97.7 106 20 139/77 95 11/19/16 16:00 97.1 77 16 127/75 97 11/20/16 11/20/16 11/20/16 07:00 15:00 23:00 Intake Total 360 ml Output Total 1000 ml Balance -640 ml Exam: GENERAL: Alert in nad GCS 15 SKIN: Warm and dry/ R BKA with granulation tissue. NO drainage,odor,swelling or erythema present CARDIOVASCULAR: +S1,S2, RRR w/o m/g/r RESPIRATORY: BS CTA Laboratory Laboratory Tests Test 11/20/16 03:17 White Blood Count 12.4 Red Blood Count 3.07 Hemoglobin 8.1 Hematocrit 24.1 Mean Corpuscular Volume 78.4 Mean Corpuscular Hemoglobin 26.3 Mean Corpuscular Hemoglobin 33.5 Concent Red Cell Distribution Width 15.6 Platelet Count 283 Mean Platelet Volume 7.7 Sodium Level 133 Potassium Level 4.1 Chloride Level 99 Carbon Dioxide Level 25.4 Anion Gap 9 Blood Urea Nitrogen 15 Creatinine 1.54 Estimat Glomerular Filtration 47 Rate Random Glucose 162 Calcium Level 7.9 Assessment and Plan Assessment: (1) Amputation stump infection Status: Acute Plan Plan D/C planning Out patient Wound vac therapy to right amputation stump to continue once D/C Pt will follow up in our out patient clinic on Friday 11/24 Roxanne DUMONT [facility] [phone] Discharge Planning Pt Ok for d/c from a vascular standpoint with VAC Will have patient f/u in our out patient clinic on Sunday Roxanne Saldaña Nov 20, 2016 12:34
--- NOTE | 2016-11-20 12:49 | HHI.FF ---
Face to Face Verification Diagnosis: (1) Right BKA infection (2) Infection of amputation stump (3) Amputation of right lower extremity below knee Physical Therapy Order: Evaluate and Treat, Strength and gait training Home Health Nursing Order: Medical education Signs/symptoms of disease process Wound care and dressing changes Nursing assessment with vital signs Instructions: Apply wound vac to R BKA site for 4 months or until therapy in completed Set vac to 125 mmHg/ continuous Change wound vac dressing every Sunday and I have seen patient Bimal ChristieDemetria baldears on 11/20/16. My clinical findings support the need for the requested home health care services because: Pt is post op R BKA that developed an infection to his RLE stump. Pt will need Home Health for wound vac management and wound care for optimal wound healing Ltd mobility - disease progression Limited ability to care for self Need for psychosocial assistance High risk of falls Infection w/ risk of complications I certify that my clinical findings support that this patient is homebound because: Pt has done well post op and will need to continue wound vac therapy out patient to aid optimal healing Post-op weakness Unsteady gait/balance [id number] bed/chair Roxanne Saldaña Nov 20, 2016 12:48
--- NOTE | 2016-11-20 13:18 | PD.WCN.NOT ---
Wound Consult Description: Right BKA Communicated with: JULIA Saldaña Recommendation: Wound VAC therapy 125mmHg low continuous suction without Veraflow with VAC changes Sunday and . Neg Pressure Wound Therapy Wound Location Wound Location: Right BKA Wound Description Length: 6.8cm Width: 17cm Depth: 2.1cm Wound bed appearance: Wound bed presents with ~60% red granulation tissue and ~25% adipose tissue and ~5% necrotic yellow slough on wound margin @3 o'clock with ~10% exposed tendon noted at 12 o'clock in center of wound. Wound noted with scant sero-sang drainage and no odor.Wound appears improved since previous assessment per JULIA Saldaña and appears to have decreased in size. Wound was cleansed with wound cleanser and gauze. Wound VAC without Veraflow was initiated per recommendations for discharge. Periwound appearance: Unremarkable Settings Suction: 125 mmHg, Continuous Intensity: Low Foam type: Black Number of pieces: 1 Additonal Information Wound was cleansed with wound cleanser and gauze. Periwound was skin prepped with Cavilon skin spray. One piece black granufoam applied over wound bed and secured with VAC drape prior to applying sensitrac pad in center of wound bed. Machine was turned on and switched to wound VAC only (no Veraflow) with settings @125mmHg low continuous suction. There were no leaks noted. Next dressing change is scheduled for this week 11/23/16. Taylor Cordon [facility] Nov 20, 2016 13:17
[2016-11-20 16:00] VITALS: BP 148/81; PULSE 75; RESP 18; TEMP 97.8; O2SAT 99
[2016-11-20 20:00] VITALS: BP 141/74; PULSE 83; RESP 18; TEMP 98.4; O2SAT 96
[2016-11-20] MEDS: ATORVASTATIN 40 MG TAB PO SCH (21:00)
[2016-11-21] VITALS: BP 127/67; PULSE 79; RESP 19; TEMP 96.8; O2SAT 95
[2016-11-21] MEDS: SODIUM CHLOR 0.9% 1000 ML INJ 1,000 ML IV SCH ×2 (01:31→04:37)
[2016-11-21] MEDS: HEPARIN SODIUM - SQ 10,000 UNITS/ML VIAL SQ SCH (05:51)
[2016-11-21 08:00] VITALS: BP 168/89; PULSE 84; RESP 16; TEMP 98; O2SAT 97
--- NOTE | 2016-11-21 08:00 | HHI.PR ---
Subjective Remarks This is a pleasant 51 y/o male who was admitted through Emergency Room for evaluation of his right BKA stump with erythema and purulent discharge, necrosis of the stump, underwent surgery and debridement with skin and subcutaneous tissue and muscle, wound vac recommended by Vascular surgery to be changed today and Discharge the patient, wound culture growing MRSA enterococcus and yeast he has Obesity, Hypertension Seen in his bedroom he states is feeling well, awaiting for Right BKA stump Vacuum change and then discharge. 11/21: Seen in his bedroom stable okay to discharge as per edi manager orders placed in chart, his scripts in chart no nausea, vomit or diarrhea. Objective Vital Signs Date Time Temp Pulse Resp B/P Pulse Ox O2 Delivery O2 Flow Rate FiO2 11/21/16 00:00 96.8 79 19 127/67 95 11/20/16 20:00 98.4 83 18 141/74 96 11/20/16 16:00 97.8 75 18 148/81 99 11/20/16 12:15 16 11/20/16 12:00 96.8 78 18 114/81 96 11/20/16 10:30 16 11/20/16 08:00 97.5 77 19 106/63 96 I/O 11/20/16 11/20/16 11/20/16 11/21/16 11/21/16 11/21/16 07:00 15:00 23:00 07:00 15:00 23:00 Intake Total 360 ml 480 ml 240 ml 240 ml Output Total 1000 ml 1150 ml 400 ml 1000 ml Balance -640 ml -670 ml -160 ml -760 ml Intake Oral 360 ml 480 ml 240 ml 240 ml Output Urine Total 900 ml 1150 ml 400 ml 1000 ml Drainage Total 100 ml # Bowel Movements 0 0 0 0 Result Diagram: 11/20/1631611/20/16316 Imaging No new imaging studies. Procedures Right BKA debridement Other Results Laboratory Tests Test 11/19/16 11/19/16 11/20/16 05:09 05:10 03:17 Neutrophils (%) (Auto) 68.9 % Lymphocytes (%) (Auto) 16.9 % Monocytes (%) (Auto) 12.6 % Eosinophils (%) (Auto) 1.3 % Basophils (%) (Auto) 0.3 % Neutrophils # (Auto) 9.8 TH/MM3 Lymphocytes # (Auto) 2.4 TH/MM3 Monocytes # (Auto) 1.8 TH/MM3 Eosinophils # (Auto) 0.2 TH/MM3 Basophils # (Auto) 0.0 TH/MM3 CBC Comment DIFF FINAL Differential Comment Magnesium Level 1.8 MG/DL Urine Color LIGHT-YELLOW Urine Turbidity CLEAR Urine pH 6.0 Urine Specific [place] 1.005 Urine Protein NEG mg/dL Urine Glucose (UA) NEG mg/dL Urine Ketones NEG mg/dL Urine Occult Blood TRACE Urine Nitrite NEG Urine Bilirubin NEG Urine Urobilinogen LESS THAN 2.0 MG/DL Urine Leukocyte Esterase SMALL Urine RBC 1 /hpf Urine WBC 2 /hpf Urine Bacteria RARE /hpf Microscopic Urinalysis Comment CULT NOT INDICATED Urine Random Creatinine 27.0 MG/DL Urine Random Sodium 64 MEQ/L White Blood Count 12.4 TH/MM3 Red Blood Count 3.07 MIL/MM3 Hemoglobin 8.1 GM/DL Hematocrit 24.1 % Mean Corpuscular Volume 78.4 FL Mean Corpuscular Hemoglobin 26.3 PG Mean Corpuscular Hemoglobin 33.5 % Concent Red Cell Distribution Width 15.6 % Platelet Count 283 TH/MM3 Mean Platelet Volume 7.7 FL Sodium Level 133 MEQ/L Potassium Level 4.1 MEQ/L Chloride Level 99 MEQ/L Carbon Dioxide Level 25.4 MEQ/L Anion Gap 9 MEQ/L Blood Urea Nitrogen 15 MG/DL Creatinine 1.54 MG/DL Estimat Glomerular Filtration 47 ML/MIN Rate Random Glucose 162 MG/DL Calcium Level 7.9 MG/DL Objective Remarks GENERAL: NAD, A&Ox3 HEAD: Normocephalic. NECK: Supple, trachea midline. No lymphadenopathy. EYES: No scleral icterus. No injection or drainage. CARDIOVASCULAR: Regular rate and rhythm without murmurs, gallops, or rubs. RESPIRATORY: Breath sounds equal bilaterally. No accessory muscle use. GASTROINTESTINAL: Abdomen soft, non-tender, nondistended. MUSCULOSKELETAL: No cyanosis, or edema. Right BKA, left AKA, wound VAC at Right BKA stump SKIN: Warm and dry. NEURO: No focal neurological deficits. Medications and IVs Current Medications Medications (Trade) Dose Ordered Sig/Kaushal Route Start Time Stop Time Status Last Admin (NS Flush) 2 ml UNSCH PRN IV FLUSH 11/09/16 19:30 11/20/16 12:10 (NS Flush) 2 ml BID IV FLUSH 11/09/16 21:00 11/20/16 21:54 (Zofran Inj) 4 mg Q6H PRN IVP 11/09/16 19:30 11/11/16 04:53 (Tylenol) 650 mg Q6H PRN PO 11/09/16 19:30 (Latia-Colace) 1 tab BID PO 11/09/16 21:00 11/14/16 07:46 (Milk Of Magnesia Liq) 30 ml Q12H PRN PO 11/09/16 19:30 11/14/16 07:46 (Senokot) 17.2 mg Q12H PRN PO 11/09/16 19:30 (Dulcolax Supp) 10 mg DAILY PRN RECTAL 11/09/16 19:30 (Lactulose Liq) 30 ml DAILY PRN PO 11/09/16 19:30 (Norvasc) 10 mg DAILY PO 11/10/16 09:00 11/20/16 09:24 (Lipitor) 40 mg HS PO 11/09/16 21:00 11/20/16 21:00 (Prinivil) 20 mg Q12HR PO 11/09/16 21:00 Hold 11/17/16 09:19 (Lopressor) 25 mg BID PO 11/09/16 21:00 11/20/16 21:53 (Protonix) 40 mg DAILY PO 11/10/16 09:00 11/20/16 09:24 (Roxicodone) 5 mg Q4H PRN PO 11/10/16 09:15 11/13/16 13:15 (Dilaudid) 2 mg Q4H PRN PO 11/10/16 09:15 11/20/16 09:30 (Morphine Inj) 2 mg Q1H PRN IV 11/10/16 09:15 11/20/16 21:55 (Heparin Inj) 5,000 units Q8HR SQ 11/14/16 14:15 11/21/16 05:51 (Zyvox) 600 mg Q12HR PO 11/16/16 14:00 11/20/16 21:53 Fluconazole 100 mg 100 mg DAILY PO 11/16/16 13:45 11/20/16 09:24 (NS 1000 ml Inj) 1,000 ml @ 100 mls/hr Q10H IV 11/20/16 09:00 11/21/16 01:31 A/P Assessment and Plan 51-year-old male status post right BKA on 09/26/16. Admitted with wet gangrene of left sided stone with necrotic tissue, now status post debridement with wound VAC in place. Right BKA Stump Infection/gangrene Original BKA amputation on 09/26/16 Admitted for treatment of infection on 11/09/16 MRSA, enterococcus, and yeast screw from wound culture ID following Vascular Surgeon following Continue wound VAC Next wound VAC changes tomorrow Infectious Disease recommended to Zyvox and Diflucan give until November 23 2016, Change to Zyvox and Diflucan Acute kidney injury Given IV fluids and received IV fluids, will need to follow with PCP to re evaluate his Renal stage. Hyponatremia Improving. HTN Controlled. Anemia Stable DVT prophylaxis Heparin Discussed with patient and edi manager. Discharge Planning Okay to discharge and follow with PCP. Franco Lopez MD Nov 21, 2016 08:00
[2016-11-21] MEDS ORDERED: OXYC-392 PO (08:14)
--- NOTE | 2016-11-21 08:36 | HHI.DS ---
Discharge Summary Admission Date Nov 09, 2016 at 19:16 Discharge Date: Nov 21, 2016 Admitting Diagnosis cyanosis, surgical wound infection (1) Amputation stump infection ICD Code: T87.40 (2) Dehydration ICD Code: E86.0 Diagnosis: Principal (3) HTN (hypertension) ICD Code: I10 Diagnosis: Principal (4) Sepsis ICD Code: A41.9 Diagnosis: Principal Procedures Right BKA stump infection debridement. Brief History - From Admission This is a 51-year-old male with a PMH of HTN, h/o Left AKA and Right BKA by Dr. Rowley secondary to Wet Gangrene who was sent to the ER for further evaluation of right stump infection. Per pt, he noted increased redness, purulent drainage and black coloration of right stump yesterday. Today, seen in office by [employer]BLER and referred to ER for IV Abx and likely debridement. On arrival, BP 114/70, HR 74, O2 sat 96% on RA, Afebrile. WBC 19.5. Chemistry essentially unremarkable except for GFR of 78. INR 1.0. Dr. Rowley consulted by ER physician, recommended IV antibiotics w/ admission for debridement in am. S/p Vanc/Cipro/Flagyl in ER. CBC/BMP: 11/20/16 0317 11/20/16 0317 Significant Findings Laboratory Tests Test 11/19/16 11/19/16 11/20/16 05:09 05:10 03:17 White Blood Count 14.3 TH/MM3 12.4 TH/MM3 (4.0-11.0) (4.0-11.0) Red Blood Count 3.21 MIL/MM3 3.07 MIL/MM3 (4.50-5.90) (4.50-5.90) Hemoglobin 8.4 GM/DL 8.1 GM/DL (13.0-17.0) (13.0-17.0) Hematocrit 25.0 % 24.1 % (39.0-51.0) (39.0-51.0) Mean Corpuscular Volume 77.7 FL 78.4 FL (80.0-100.0) (80.0-100.0) Mean Corpuscular Hemoglobin 26.0 PG 26.3 PG (27.0-34.0) (27.0-34.0) Monocytes (%) (Auto) 12.6 % (0.0-8.0) Neutrophils # (Auto) 9.8 TH/MM3 (1.8-7.7) Monocytes # (Auto) 1.8 TH/MM3 (0-0.9) Sodium Level 134 MEQ/L 133 MEQ/L (136-145) (136-145) Creatinine 1.40 MG/DL 1.54 MG/DL (0.60-1.30) (0.60-1.30) Estimat Glomerular Filtration 53 ML/MIN (>89) 47 ML/MIN (>89) Rate Random Glucose 118 MG/DL 162 MG/DL (74-106) (74-106) Calcium Level 8.1 MG/DL 7.9 MG/DL (8.5-10.1) (8.5-10.1) Urine Occult Blood TRACE (NEG) Urine Leukocyte Esterase SMALL (NEG) Urine Bacteria RARE /hpf (NONE) Imaging No new imaging studies. PE at Discharge GENERAL: NAD, A&Ox3 HEAD: Normocephalic. NECK: Supple, trachea midline. No lymphadenopathy. EYES: No scleral icterus. No injection or drainage. CARDIOVASCULAR: Regular rate and rhythm without murmurs, gallops, or rubs. RESPIRATORY: Breath sounds equal bilaterally. No accessory muscle use. GASTROINTESTINAL: Abdomen soft, non-tender, nondistended. MUSCULOSKELETAL: No cyanosis, or edema. Right BKA, left AKA, wound VAC at Right BKA stump SKIN: Warm and dry. NEURO: No focal neurological deficits. Hospital Course This is a pleasant 51 y/o male who was admitted through Emergency Room for evaluation of his right BKA stump with erythema and purulent discharge, necrosis of the stump, underwent surgery and debridement with skin and subcutaneous tissue and muscle, wound vac recommended by Vascular surgery to be changed today and Discharge the patient, wound culture growing MRSA enterococcus and yeast he has Obesity, Hypertension Seen in his bedroom he states is feeling well, awaiting for Right BKA stump Vacuum change and then discharge. 11/21: Seen in his bedroom stable okay to discharge as per horse stud manager orders placed in chart, his scripts in chart no nausea, vomit or diarrhea. Assessment and Plan 51-year-old male status post right BKA on 09/26/16. Admitted with wet gangrene of left sided stone with necrotic tissue, now status post debridement with wound VAC in place. Right BKA Stump Infection/gangrene Original BKA amputation on 09/26/16 Admitted for treatment of infection on 11/09/16 MRSA, enterococcus, and yeast screw from wound culture ID following Vascular Surgeon following Continue wound VAC Next wound VAC changes tomorrow Infectious Disease recommended to Zyvox and Diflucan give until November 23 2016, Change to Zyvox and Diflucan Acute kidney injury Given IV fluids and received IV fluids, will need to follow with PCP to re evaluate his Renal stage. Hyponatremia Improving. HTN Controlled. Anemia Stable DVT prophylaxis Heparin Discussed with patient and horse stud manager. Discharge Planning Okay to discharge and follow with PCP. Pt Condition on Discharge: Good Discharge Disposition: Disch w/ Home Health Serv Discharge Time: > 30 minutes Discharge Instructions DIET: Follow Instructions for: Heart Healthy Diet Activities you can perform: Regular-No Restrictions Other Activity Instructions: Patient has Left AKA and Right BKA Franco Lopez MD Nov 21, 2016 08:36
[2016-11-21 08:53] VITALS: BP 174/90
[2016-11-21] MEDS ORDERED: WHEEMIS3 (11:10)
[2016-11-21] MEDS: METOPROLOL TARTRATE 25 MG TAB PO SCH (11:22)
[2016-11-21] MEDS: DOCUSATE SODIUM 50 MG/SENNA 8.6 MG TAB PO SCH (11:22)
[2016-11-21] MEDS: LINEZOLID 600 MG TAB PO SCH (11:22)
[2016-11-21] MEDS: FLUCONAZOLE 100 MG TAB PO SCH (11:22)
[2016-11-21] MEDS: PANTOPRAZOLE SOD 40 MG DELAYED RELEASE TAB PO SCH (11:22)
[2016-11-21 12:00] VITALS: BP 167/68; PULSE 86; RESP 18; TEMP 97; O2SAT 96
== END 2016-11-21 16:04 | disposition home health service (06) | DRG 854 ==
LOC: NEPD 16:17 → NEDA 19:16 → N07A 21:27
PROVIDERS: ADMIT Internal Medicine; ATTEND Internal Medicine
PROC: 0JDN0ZZ Extraction of Right Lower Leg Subcutaneous Tissue and Fascia, Open Approach (ICD-10-PCS; principal; 2016-11-10 08:23)
DX: A41.9 Sepsis, unspecified organism (principal); E11.52 Type 2 diabetes mellitus with diabetic peripheral angiopathy with gangrene; N17.9 Acute kidney failure, unspecified; T87.43 Infection of amputation stump, right lower extremity; E87.1 Hypo-osmolality and hyponatremia; T87.53 Necrosis of amputation stump, right lower extremity; T87.81 Dehiscence of amputation stump; E86.0 Dehydration; I10 Essential (primary) hypertension; E66.9 Obesity, unspecified; D64.9 Anemia, unspecified; E78.5 Hyperlipidemia, unspecified; K21.9 Gastro-esophageal reflux disease without esophagitis; Y83.5 Amputation of limb(s) as the cause of abnormal reaction of the patient, or of later complication, without mention of misadventure at the time of the procedure; Z68.32 Body mass index [BMI] 32.0-32.9, adult; Z87.891 Personal history of nicotine dependence; Z88.0 Allergy status to penicillin; Z89.612 Acquired absence of left leg above knee
CPT/HCPCS: 80048; 80053; 80202; 81001; 82570; 82948; 83036; 83735; 84300; 85025; 85027; 85610; 85730; 86403; 87040; 87070; 87077; 87106; 87147; 87186; 87205; 96365; 96366; 96368; 96375; J0131; J0744; J1580; J1644; J2175; J2250; J2270; J2405; J2710; J3010; J3370; J7030; J7050